=== PATIENT | male | born 1945 ===

== ENCOUNTER 2017-03-19 08:52 | Inpatient (IN) ==
[2017-03-19] MEDS ORDERED: GLUCAGON 1 MG VIAL IM PRN ×2 (09:18)
[2017-03-19] MEDS ORDERED: DEXTROSE 50% 25 GM/50 ML VIAL IV PRN ×2 (09:18)
--- NOTE | 2017-03-19 09:18 | Cardiothoracic History & Phys ---
History of Present Illness Chief complaint: Chest pain History of present illness: Mr. Nixon is a 71 year old male who was admitted to [facility] for evaluation of chest pain. Patient had been in his reasonable state of health until about 10 days ago when he began having chest heaviness and pressure. This became more severe and eventually the patient went to the hospital and was transferred to [facility] for evaluation of his chest discomfort. He was admitted to [place] and underwent cardiac catheterization demonstrating moderate to severe left main coronary stenosis and severe stenosis of the circumflex marginal coronary artery. Patient is transferred for bypass surgery. Past medical history shows the patient has had prostate surgery but otherwise has been in good general health. Family history is remarkable in that the mother had premature coronary disease as did 2 brothers. Patient has no known allergies. Patient is a former smoker and does not drink alcohol. Review of systems is noncontributory. Physical examination patient is a well-developed well-nourished - [place] male with a mild degree of chest discomfort. Examination of head eyes ears nose and throat show the pupils are equal react to light and extraocular motions are intact. Examination of the neck shows no masses and there is no thyromegaly. The oropharynx is benign. Examination of chest is clear to percussion and auscultation. Examination of the heart shows no murmurs and a regular rhythm. Examination the abdomen is soft and nontender there are no masses or organomegaly. Termination extremities shows no cyanosis or edema and the neurological examination is grossly within normal limits. Assessment: Coronary artery disease including left main involvement. Plan coronary bypass surgery at the earliest available date.
[2017-03-19] MEDS ORDERED: MORPHINE 2 MG/1 ML SYRINGE IV PRN (09:26)
[2017-03-19] MEDS ORDERED: SODIUM CHLORIDE 0.9% 1,000 ML IV SCH (09:30)
[2017-03-19] MEDS ORDERED: NITROGLYCERIN 0.3 MG/HR PATCH TRANSDERM SCH (09:30)
[2017-03-19 11:12] LABS: Basophils % 0.4 % (0.0-0.8); Eosinophils % 0.2 % (0.00-10.9); Hematocrit 42.1 VOL% (42.0-52.0); Hemoglobin 14.5 GM/DL (14.0-18.0); Immature Granulocytes % 0.6 %; Immature Granulocytes Absolute 0.06 #; Lymphocytes # 1.7 10*3/uL (1.4-4.0); Lymphocytes % 17.4 % (21.2-54.2); Mean Corpuscular HGB Conc 34.4 GM/DL (32-36); Mean Corpuscular Hemoglobin 31 PG (27-34); Mean Corpuscular Volume 89.4 FL (87-102); Mean Platelet Volume 10.1 FL (9.6-12.0); Monocytes # 0.4 10*3/uL (0.11-0.8); Monocytes % 3.6 % (1.7-12.7); Neutrophils # 7.5 10*3/uL (1.4-7.4); Neutrophils % 77.8 % (38.7-73.9); Platelet Count 227 T/CUMM (130-400); Red Blood Count 4.71 MC/CUMM (3.8-5.5); White Blood Count 9.6 T/CUMM (4-12)
[2017-03-19] MEDS ORDERED: CLORAZEPATE 3.75 MG TABLET PO PRN (11:25)
[2017-03-19 11:35] LABS: Allen Test Positive
[2017-03-19 11:36] LABS: ABG HCO3 26.1 MMOL/L (20-26); ABG Oxygen Saturation 97.9 % (95-100); ABG PCO2 39.8 MM HG (35-48); ABG PH 7.428 (7.35-7.45); ABG TCO2 22.6 MMOL/L (23-27)
[2017-03-19 11:43] LABS: Alanine Aminotransferase 27 U/L (16-61); Albumin 3.4 G/DL (3.4-5.0); Alkaline Phosphatase 63 U/L (45-117); Aspartate Amino Transferase 204 U/L (0-37); Bilirubin,Total < 0.39 MG/DL (0.2-1.0); Blood Urea Nitrogen 15 MG/DL (7-18); Calcium 8.7 MG/DL (8.5-10.1); Glucose 116 MG/DL (74-106); Potassium 3.8 MMOL/L (3.5-5.1); Sodium 143 MMOL/L (136-145); Total Protein 6.1 G/DL (6.4-8.3)
[2017-03-19] MEDS ORDERED: ENOXAPARIN 40 MG/0.4 ML SYRINGE SUBCUT SCH (12:00)
[2017-03-19] MEDS: HEPARIN DRIP 25,000 UNITS/500 ML PREMIX IV SCH (12:24)
[2017-03-19] MEDS: NITROGLYCERIN DRIP 50 MG/250 ML BOTTLE IV SCH (12:27)
[2017-03-19] MEDS: HEPARIN 5,000 UNIT/1 ML VIAL IV PRN ×2 (13:33→19:40)
--- NOTE | 2017-03-19 14:06 | Hospitalist Consult Note ---
Assessment and Plan - Time spent with patient Time spent with patient: Greater than 30 minutes (1) Coronary artery disease Status: Acute Assessment and plan: 03/19/17 - Patient underwent heart catherization at [place] and was found to have: moderate to severe left main coronary stenosis and severe stenosis of the circumflex marginal coronary artery. Plan for Bypass surgery with Dr Elliott Tuesday or sooner. Current Visit: Yes (2) Chest pain Status: Acute Assessment and plan: Patient's pain is being appropriately managed at this time. He is currently on Nitroglycerin infusion @ 12cc/hr (40mcg/min). Heparin Infusion @ 13cc/hr. and 1/ 2 NS at 20cc/hr. He has Morphine PRN for pain. Will continue current orders and monitor closely in the critical care unit, continue aspirin and blood pressure management. Bypass surgery is currently anticipated for Tuesday or sooner. Current Visit: Yes (3) Hypertension Status: Acute Assessment and plan: 03/19/17 - Continue BP management with Prinzide 20-25mg daily. Continue to monitor closely. Current Visit: Yes History of Present Illness - Consult Narrative Reason for consult: Medical Management History of present illness: Mr. Nixon is a 71 year old AA male which was transferred from [facility] following heart catherization for further treatment of Moderate to severe left main coronary stenosis and severe stenosis of the circumflex marginal coronary artery with bypass surgery. Hospitalist Services were consulted for medical management. Patient has history of hypertension and Prostatectomy 10 years ago. Patient is a former smoker. Denies alcohol and drug use. Hospitalist services consulted for medical management, Discussed with Dr Elliott and Dr Sunshine, will continue to monitor patient throughout hospital stay. CC: Don Elliott MD - Home Medications and Allergies Home Medications: Home Medications Medication Instructions Recorded Confirmed Type Aspirin [Ecotrin] 81 mg PO DAILY 03/19/17 03/19/17 History Lisinopril/Hydrochlorothiazide 1 each PO DAILY 03/19/17 03/19/17 History [Lisinopril-Hctz 20-25 mg Tab] Allergies/Adverse Reactions: Allergies Allergy/AdvReac Type Severity Reaction Status Date / Time No Known Allergies Allergy Verified 03/19/17 10:48 Medical,Surgical,& Family Hx - Medical History Cardio: History of: Hypertension Genitourinary: History of: Prostate Problems - Surgical History Reproductive Surgeries: Surgical HX of;: Prostate Surgery - Social History Smoking Status: Former smoker Frequency of Alcohol Use: None Type of Drug Use: None Marital Status: Single Lives With:: Sibling (his brother lives with him) Functional capacity: independent ambulation Review of systems: ROS completed and pertinent positive and negative in the HPI. Exam - Constitutional Vitals: Period Temp Pulse Resp BP Sys/Ricci Pulse Ox Last 24 Hr 97.1 F 64 16 140/73 95 General appearance: normal weight - Head Head exam: Present: normal inspection - Eye Eye exam: Present: EOMI Pupils: Present: PHYLICIA - Neck Neck exam: Present: normal inspection - Respiratory Respiratory exam: Present: clear to auscultation bilaterally. Absent: stridor, wheezes - Cardiovascular Cardiovascular exam: Present: regular rate and rhythm (HR 58-64) - GI/Abdominal GI/Abdominal exam: Present: normal bowel sounds, soft. Absent: guarding, tenderness, rebound - Extremities Exam Extremities exam: Present: full ROM. Absent: edema - Neurological Exam Neurological exam: Present: alert, oriented X3, CN II-XII intact - Psychiatric Psychiatric exam: Present: normal affect, normal mood - Skin Skin exam: Present: normal color, warm, dry Results - Labs CBC & BMP: 03/19/17 10:58 03/19/17 10:58 Lab Results: I have reviewed the past 24 hour labs
[2017-03-19 14:30] LABS: CKMB % 12.3 %
[2017-03-19] MEDS: PANTOPRAZOLE 40 MG TABLET PO SCH (15:38)
--- NOTE | 2017-03-19 15:43 | XRay Report ---
Exam: XR chest 1V portable Date: 03/19/2017 9:25 AM Indication: Coronary artery disease Comparison: None Technical: AP Findings: External cardiac leads are present. Oxygen tubing is present. The heart is normal in size. Mediastinum is demonstrated with some mild interstitial thickening in the perihilar regions with some atelectatic change left base. No obvious effusion. No pneumothorax. Bony structures reveal no acute findings with arthritic changes of the shoulders Impression: 1. Mild interstitial thickening in the perihilar region with atelectatic change left base PROCEDURE INTERPRETED AT [facility] DEPARTMENT OF RADIOLOGY Final Report Signed by: Dr. Duke Bush
[2017-03-19] MEDS: CLORAZEPATE 3.75 MG TABLET PO SCH (17:19)
[2017-03-19 19:20] LABS: CKMB % 13.2 %
--- NOTE | 2017-03-19 21:10 | Cardiology Consult Note ---
Assessment and Plan - Time spent with patient Time spent with patient: Greater than 30 minutes (1) Acute non-ST segment elevation myocardial infarction Status: Acute Assessment and plan: I do not have any cardiac enzymes at [place] to compare to but apparently his enzymes have increased today. This may indicate a recent non-ST segment elevation microinfarction but I do not have a EKG really to look at. The patient is not having chest pain at this time. I suspect this happened last night around midnight i.e. 20-24 hours ago. The patient is clinically stable at this time and I would just treat this patient medically. This most likely would be secondary to occlusion of his obtuse marginal branch. Current Visit: Yes (2) Chest pain Status: Acute Assessment and plan: I think is secondary to closure probably of an obtuse marginal branch. I have not seen this films are much hospitalist at this time. Current Visit: Yes (3) Coronary artery disease Status: Acute Assessment and plan: Patient will left main coronary disease and apparently obtuse marginal stenosis. Apparently he has had a non-ST segment elevation microinfarction based on lab work. Current Visit: Yes (4) Hypertension Status: Chronic Assessment and plan: Historically he has had this. Stable at this time. Current Visit: Yes (5) Bradycardia Status: Acute Assessment and plan: This may be related to his underlying cardiac disease. I do not have anything to compare to his father's rights. Certainly occasionally IV nitroglycerin will cause bradycardia. Think at this time we will monitor him without start a beta-gene because of this. We will reevaluate tomorrow if possible start low -dose beta-gene. I certainly would prefer to start this during the daytime rather than at night. Current Visit: Yes History of Present Illness - Data of Consult Patient: new to practice Consult date: 03/19/17 Requesting Physician: Don Elliott - Consult Narrative Reason for consult: MCI, CAD History of present illness: Mr. Nixon is a 71 year old male who is seen in the ICU and is a fair historian. Patient was transferred here from [facility] today. He is in the ICU is stated above. The patient apparently was at [place] and underwent catheterization yesterday after experiencing chest discomfort that has been ongoing off and on for the last 7-14 days. He describes as a pressure discomfort heaviness. He may feel short of breath with it. Since it progressed he was seen in his local hospital and transferred to [facility] where he was evaluated. He underwent catheterization as noted yesterday. Chart indicates she had a moderate to severe left main stenosis with severe stenosis of circumflex artery marginal branch. We do not have the Films to evaluate her review. Patient apparently last night around midnight plus or minus developed significant severe chest pain that was prolonged. He had pain off and on during the day that seem to decrease crescendo overall low. At present though he is not having any significant discomfort and very minimal at worst. Since transfer he has had lab work with CBC being unremarkable. Arterial blood gases are stable. Patient's chemistries are unremarkable. His renal function is unremarkable as is electrolytes. His AST is elevated at 204. Was noted today at 1159 his troponin was 25 with a CPK of 1974. A repeat set of cardiac enzymes at 1959 with a troponin of 131 and a CPK of 2532. I do not have an ECG to look at. As are noted I do not have the CAT scans to look at as well. The patient on telemetry has been stable with sinus bradycardia for most part his heart rate in the high 50s low 60s. Blood pressures been stable. He is on IV heparin as well as IV nitroglycerin. He has a history of hypertension as well as possible dyslipidemia. He denies any prior cardiac history. CC: Don Elliott MD - Home Medications and Allergies Home Medications: Home Medications Medication Instructions Recorded Confirmed Type Aspirin [Ecotrin] 81 mg PO DAILY 03/19/17 03/19/17 History Lisinopril/Hydrochlorothiazide 1 each PO DAILY 03/19/17 03/19/17 History [Lisinopril-Hctz 20-25 mg Tab] Allergies/Adverse Reactions: Allergies Allergy/AdvReac Type Severity Reaction Status Date / Time No Known Allergies Allergy Verified 03/19/17 10:48 Review of systems: Preadmission Constitutional: Denies anorexia, chills, fatigue, fever, frequent falls, night sweats, weight gain, weight loss Eyes: Denies visual changes or loss of vision Ears: Denies decreased hearing, vertigo Nose, mouth and throat: Denies dysphagia, epistaxis, headaches, neck pain, tongue swelling, Neck: Denies thyromegaly or masses. No stiffness. Cardiovascular: as per HPI Respiratory: Denies cough, dyspnea, hemoptysis, dyspnea on exertion, wheezing Gastrointestinal: Denies abdominal pain, constipation, dyspepsia, dysphagia, hematemesis, hematochezia, melena, nausea, vomiting Genitourinary: Denies dysuria, hematuria, nocturia, past history of prostatectomy for prostate cancer. Musculoskeletal: Denies any significant arthralgias, joint swelling, muscle weakness, myalgias Neurological: denies abnormal gait, abnormal speech, confusion, convulsions, frequent falls, headaches, memory loss, syncope Psychiatric: Denies anxiety, confusion, depression Endocrine: Denies cold intolerance, fatigue, heat intolerance Hematologic/Lymphatic: Denies easy bleeding, easy bruising Dermatologic: Denies Rash, itching, shingles Medical,Surgical,& Family Hx - Medical History Cardio: History of: CAD (This is of recent diagnosis), Hypertension Genitourinary: History of: Prostate Problems - Surgical History Reproductive Surgeries: Surgical HX of;: Prostate Surgery - Family History Family History: Reports;: Family Heart Disease, Family Hypertension - Social History Smoking Status: Former smoker Frequency of Alcohol Use: None Type of Drug Use: None Physical Examination Vital Signs Pulse Resp BP Pulse Ox 69 16 145/74 95 03/19/17 10:16 03/19/17 10:16 03/19/17 10:16 03/19/17 10:16 Exam: General appearance: normal weight, no acute distress Head exam: normal inspection, atraumatic Eye exam: Pupils are equal and reactive. EOMI. There is no trauma. Ear exam: Anatomically normal. Normal auditory acuity to conversation. Oral exam: No significant oral lesions. Neck exam: normal inspection no JVD. No carotid bruit. Trachea is in midline. Respiratory exam: clear to auscultation bilaterally anteriorly with good air movement. No rales, rhonchi or wheezes. Cardiovascular exam: regular rate and rhythm, no murmur or gallop or rub. No precordial lift. No bruits over the major arteries. Chest wall/torso: Anatomically normal. No tenderness, deformity Peripheral Pulses: 2+ throughout. GI/Abdominal exam: normal bowel sounds, soft and nontender, no abdominal bruits or pulsatile masses. Musculoskeletal/Extremities exam: normal inspection without edema or cyanosis. No deformities or trauma. Neurological exam: alert, oriented X3. There is no gross neurologic deficits. Psychiatric exam: normal affect, normal mood. Cognitive function is grossly intact. Skin exam: normal color, warm. No rashes or other skin lesions. Result/EKG - Labs CBC & BMP: 03/19/17 10:58 03/19/17 10:58 Lab Results: I have reviewed the past 24 hour labs Labs: Laboratory Results - last 24 hr 03/19/17 03/19/17 03/19/17 10:58 10:58 10:58 WBC 9.6 RBC 4.71 Hgb 14.5 Hct 42.1 MCV 89.4 MCH 31 MCHC 34.4 RDW 13.0 Plt Count 227 MPV 10.1 Neut % (Auto) 77.8 H Lymph % (Auto) 17.4 L [place] % (Auto) 3.6 Eos % (Auto) 0.2 Baso % (Auto) 0.4 Neut # (Auto) 7.5 H Lymph # (Auto) 1.7 [place] # (Auto) 0.4 Eos # (Auto) 0.0 Baso # (Auto) 0.0 Immature Gran % 0.6 Nucleated RBC % 0.0 Immature Gran # 0.06 Nucleated RBCs # 0.00 Circ Anticoag PTT ABG pH ABG pCO2 ABG pO2 ABG HCO3 ABG Total CO2 ABG O2 Saturation ABG Base Excess FiO2 Sodium 143 Potassium 3.8 Chloride 105 Carbon Dioxide 28 Anion Gap 13.8 BUN 15 Creatinine 1.10 GFR Calculation 79 BUN/Creatinine Ratio 13.00 Glucose 116 H Calculated Osmolality 286.0 Calcium 8.7 Total Bilirubin < 0.39 AST 204 H ALT 27 Alkaline Phosphatase 63 Total Creatine Kinase 1974 H CK-MB (CK-2) 242.8 H CK and CKMB Interp 12.3 Troponin I 25.000 H Total Protein 6.1 L Albumin 3.4 Globulin 2.7 Albumin/Globulin Ratio 1.2 03/19/17 03/19/17 03/19/17 10:59 11:15 18:17 WBC RBC Hgb Hct MCV MCH MCHC RDW Plt Count MPV Neut % (Auto) Lymph % (Auto) [place] % (Auto) Eos % (Auto) Baso % (Auto) Neut # (Auto) Lymph # (Auto) [place] # (Auto) Eos # (Auto) Baso # (Auto) Immature Gran % Nucleated RBC % Immature Gran # Nucleated RBCs # Circ Anticoag PTT 29.4 38.2 D ABG pH 7.428 ABG pCO2 39.8 ABG pO2 97.0 H ABG HCO3 26.1 H ABG Total CO2 22.6 L ABG O2 Saturation 97.9 ABG Base Excess 2.0 FiO2 28.00 Sodium Potassium Chloride Carbon Dioxide Anion Gap BUN Creatinine GFR Calculation BUN/Creatinine Ratio Glucose Calculated Osmolality Calcium Total Bilirubin AST ALT Alkaline Phosphatase Total Creatine Kinase CK-MB (CK-2) CK and CKMB Interp Troponin I Total Protein Albumin Globulin Albumin/Globulin Ratio 03/19/17 18:17 WBC RBC Hgb Hct MCV MCH MCHC RDW Plt Count MPV Neut % (Auto) Lymph % (Auto) [place] % (Auto) Eos % (Auto) Baso % (Auto) Neut # (Auto) Lymph # (Auto) [place] # (Auto) Eos # (Auto) Baso # (Auto) Immature Gran % Nucleated RBC % Immature Gran # Nucleated RBCs # Circ Anticoag PTT ABG pH ABG pCO2 ABG pO2 ABG HCO3 ABG Total CO2 ABG O2 Saturation ABG Base Excess FiO2 Sodium Potassium Chloride Carbon Dioxide Anion Gap BUN Creatinine GFR Calculation BUN/Creatinine Ratio Glucose Calculated Osmolality Calcium Total Bilirubin AST ALT Alkaline Phosphatase Total Creatine Kinase 2532 H D CK-MB (CK-2) 335.3 H D CK and CKMB Interp 13.2 Troponin I 131.000 H D Total Protein Albumin Globulin Albumin/Globulin Ratio - Impressions Impressions: ECG pending. Telemetry was sinus rhythm with occasional PVC.
[2017-03-19] MEDS: CHLORHEXIDINE 0.12% ORAL RINSE 60 ML BOTTLE SWISH/SPIT SCH (21:18)
[2017-03-20] MEDS: CLORAZEPATE 3.75 MG TABLET PO SCH ×4 (00:25→17:33)
[2017-03-20 00:28] LABS: CKMB % 9.4 %
[2017-03-20 01:03] LABS: Calcium 8.2 MG/DL (8.5-10.1); Magnesium 2.3 MG/DL (1.8-2.4); Osmolality,Calculated 283.1 MOS/KG (273-304); Potassium 4.1 MMOL/L (3.5-5.1)
[2017-03-20 01:24] LABS: Basophils % 0.4 % (0.0-0.8); Eosinophils # 0.1 10*3/uL (0.0-0.87); Eosinophils % 0.6 % (0.00-10.9); Hematocrit 39.9 VOL% (42.0-52.0); Hemoglobin 13.9 GM/DL (14.0-18.0); Immature Granulocytes % 0.7 %; Immature Granulocytes Absolute 0.07 #; Lymphocytes # 2.1 10*3/uL (1.4-4.0); Lymphocytes % 20.1 % (21.2-54.2); Mean Corpuscular HGB Conc 34.8 GM/DL (32-36); Mean Corpuscular Hemoglobin 31 PG (27-34); Mean Corpuscular Volume 88.7 FL (87-102); Mean Platelet Volume 10.7 FL (9.6-12.0); Monocytes # 0.5 10*3/uL (0.11-0.8); Monocytes % 4.5 % (1.7-12.7); Neutrophils # 7.8 10*3/uL (1.4-7.4); Neutrophils % 73.7 % (38.7-73.9); Platelet Count 206 T/CUMM (130-400); Red Cell Distribution Width 13.1 % (9.3-17.3); White Blood Count 10.5 T/CUMM (4-12)
[2017-03-20] MEDS: HEPARIN 5,000 UNIT/1 ML VIAL IV PRN (01:33)
[2017-03-20 02:18] LABS: Risk Ratio 4.54; VLDL CHOLESTEROL 22.4 MG/DL
[2017-03-20] MEDS: NITROGLYCERIN DRIP 50 MG/250 ML BOTTLE IV SCH (03:52)
[2017-03-20] MEDS: HEPARIN DRIP 25,000 UNITS/500 ML PREMIX IV SCH (04:21)
--- NOTE | 2017-03-20 04:50 | EKG Report ---
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
--- NOTE | 2017-03-20 05:03 | EKG Report ---
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
--- NOTE | 2017-03-20 07:19 | EKG Report ---
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
[2017-03-20] MEDS ORDERED: NITROGLYCERIN DRIP 50 MG/250 ML BOTTLE IV SCH (07:42)
[2017-03-20 07:54] LABS: CKMB % 5.1 %
[2017-03-20 07:55] LABS: Troponin I Only 44.4 NG/ML (0.00-0.045)
--- NOTE | 2017-03-20 08:11 | Cardiothoracic Progress Note ---
Cardiothoracic Subjective Interval history: Appreciate Dr. Marquez's help. Patient looks and feels much better this morning and his chest discomfort has resolved. His cardiac enzymes are trending downward fairly rapidly. Vital signs have been stable and he is breathing comfortably. We will try to wean him off intravenous nitroglycerin and heparin and switched to Lovenox and Nitrol patch. I am going to defer surgery to Tuesday because of his recent injury and I have explained this in some detail to the patient and he understands and agrees. We will keep him in intensive care at least another 24 hours. Exam (Progress Note) - Constitutional Vitals: Period Temp Pulse Resp BP Sys/Ricci Pulse Ox Last 24 Hr 97.1 F-98.8 F 55-69 14-21 91-145/48-84 92-98 Result/EKG - Labs CBC & BMP: 03/20/17 00:33 03/20/17 00:33 Labs: Laboratory Results - last 24 hr 03/19/17 03/19/17 03/19/17 10:58 10:58 10:58 WBC 9.6 RBC 4.71 Hgb 14.5 Hct 42.1 MCV 89.4 MCH 31 MCHC 34.4 RDW 13.0 Plt Count 227 MPV 10.1 Neut % (Auto) 77.8 H Lymph % (Auto) 17.4 L [place] % (Auto) 3.6 Eos % (Auto) 0.2 Baso % (Auto) 0.4 Neut # (Auto) 7.5 H Lymph # (Auto) 1.7 [place] # (Auto) 0.4 Eos # (Auto) 0.0 Baso # (Auto) 0.0 Immature Gran % 0.6 Nucleated RBC % 0.0 Immature Gran # 0.06 Nucleated RBCs # 0.00 Circ Anticoag PTT ABG pH ABG pCO2 ABG pO2 ABG HCO3 ABG Total CO2 ABG O2 Saturation ABG Base Excess FiO2 Sodium 143 Potassium 3.8 Chloride 105 Carbon Dioxide 28 Anion Gap 13.8 BUN 15 Creatinine 1.10 GFR Calculation 79 BUN/Creatinine Ratio 13.00 Glucose 116 H Calculated Osmolality 286.0 Calcium 8.7 Magnesium Total Bilirubin < 0.39 AST 204 H ALT 27 Alkaline Phosphatase 63 Total Creatine Kinase 1974 H CK-MB (CK-2) 242.8 H CK and CKMB Interp 12.3 Troponin I 25.000 H Total Protein 6.1 L Albumin 3.4 Globulin 2.7 Albumin/Globulin Ratio 1.2 Triglycerides Cholesterol LDL Cholesterol VLDL Cholesterol HDL Cholesterol Heart Disease Risk Ratio Blood Type Antibody Screen Crossmatch 03/19/17 03/19/17 03/19/17 10:59 11:15 18:17 WBC RBC Hgb Hct MCV MCH MCHC RDW Plt Count MPV Neut % (Auto) Lymph % (Auto) [place] % (Auto) Eos % (Auto) Baso % (Auto) Neut # (Auto) Lymph # (Auto) [place] # (Auto) Eos # (Auto) Baso # (Auto) Immature Gran % Nucleated RBC % Immature Gran # Nucleated RBCs # Circ Anticoag PTT 29.4 38.2 D ABG pH 7.428 ABG pCO2 39.8 ABG pO2 97.0 H ABG HCO3 26.1 H ABG Total CO2 22.6 L ABG O2 Saturation 97.9 ABG Base Excess 2.0 FiO2 28.00 Sodium Potassium Chloride Carbon Dioxide Anion Gap BUN Creatinine GFR Calculation BUN/Creatinine Ratio Glucose Calculated Osmolality Calcium Magnesium Total Bilirubin AST ALT Alkaline Phosphatase Total Creatine Kinase CK-MB (CK-2) CK and CKMB Interp Troponin I Total Protein Albumin Globulin Albumin/Globulin Ratio Triglycerides Cholesterol LDL Cholesterol VLDL Cholesterol HDL Cholesterol Heart Disease Risk Ratio Blood Type Antibody Screen Crossmatch 03/19/17 03/19/17 03/20/17 18:17 23:02 00:33 WBC RBC Hgb Hct MCV MCH MCHC RDW Plt Count MPV Neut % (Auto) Lymph % (Auto) [place] % (Auto) Eos % (Auto) Baso % (Auto) Neut # (Auto) Lymph # (Auto) [place] # (Auto) Eos # (Auto) Baso # (Auto) Immature Gran % Nucleated RBC % Immature Gran # Nucleated RBCs # Circ Anticoag PTT ABG pH ABG pCO2 ABG pO2 ABG HCO3 ABG Total CO2 ABG O2 Saturation ABG Base Excess FiO2 Sodium Potassium Chloride Carbon Dioxide Anion Gap BUN Creatinine GFR Calculation BUN/Creatinine Ratio Glucose Calculated Osmolality Calcium Magnesium Total Bilirubin AST ALT Alkaline Phosphatase Total Creatine Kinase 2532 H D 1911 H D CK-MB (CK-2) 335.3 H D 178.7 H D CK and CKMB Interp 13.2 9.4 Troponin I 131.000 H D 86.000 H D Total Protein Albumin Globulin Albumin/Globulin Ratio Triglycerides Cholesterol LDL Cholesterol VLDL Cholesterol HDL Cholesterol Heart Disease Risk Ratio Blood Type O NEGATIVE Antibody Screen Negative Crossmatch See Detail 03/20/17 03/20/17 03/20/17 00:33 00:33 00:33 WBC 10.5 RBC 4.50 Hgb 13.9 L Hct 39.9 L MCV 88.7 MCH 31 MCHC 34.8 RDW 13.1 Plt Count 206 MPV 10.7 Neut % (Auto) 73.7 Lymph % (Auto) 20.1 L [place] % (Auto) 4.5 Eos % (Auto) 0.6 Baso % (Auto) 0.4 Neut # (Auto) 7.8 H Lymph # (Auto) 2.1 [place] # (Auto) 0.5 Eos # (Auto) 0.1 Baso # (Auto) 0.0 Immature Gran % 0.7 Nucleated RBC % 0.0 Immature Gran # 0.07 Nucleated RBCs # 0.00 Circ Anticoag PTT ABG pH ABG pCO2 ABG pO2 ABG HCO3 ABG Total CO2 ABG O2 Saturation ABG Base Excess FiO2 Sodium 142 Potassium 4.1 Chloride 107 Carbon Dioxide 25 Anion Gap 14.1 BUN 13 Creatinine 1.00 GFR Calculation 89 BUN/Creatinine Ratio 13.00 Glucose 118 H Calculated Osmolality 283.1 Calcium 8.2 L Magnesium 2.3 Total Bilirubin AST ALT Alkaline Phosphatase Total Creatine Kinase CK-MB (CK-2) CK and CKMB Interp Troponin I Total Protein Albumin Globulin Albumin/Globulin Ratio Triglycerides 112 Cholesterol 159 LDL Cholesterol 105.0 VLDL Cholesterol 22.4 HDL Cholesterol 35 L Heart Disease Risk Ratio 4.54 Blood Type Antibody Screen Crossmatch 03/20/17 03/20/17 03/20/17 00:33 02:30 06:43 WBC RBC Hgb Hct MCV MCH MCHC RDW Plt Count MPV Neut % (Auto) Lymph % (Auto) [place] % (Auto) Eos % (Auto) Baso % (Auto) Neut # (Auto) Lymph # (Auto) [place] # (Auto) Eos # (Auto) Baso # (Auto) Immature Gran % Nucleated RBC % Immature Gran # Nucleated RBCs # Circ Anticoag PTT 38.7 ABG pH ABG pCO2 ABG pO2 ABG HCO3 ABG Total CO2 ABG O2 Saturation ABG Base Excess FiO2 Sodium Potassium Chloride Carbon Dioxide Anion Gap BUN Creatinine GFR Calculation BUN/Creatinine Ratio Glucose Calculated Osmolality Calcium Magnesium Total Bilirubin AST ALT Alkaline Phosphatase Total Creatine Kinase 1238 H D CK-MB (CK-2) 63.5 H D CK and CKMB Interp 5.1 Troponin I 44.400 H D Total Protein Albumin Globulin Albumin/Globulin Ratio Triglycerides Cholesterol LDL Cholesterol VLDL Cholesterol HDL Cholesterol Heart Disease Risk Ratio Blood Type O NEGATIVE Antibody Screen Crossmatch 03/20/17 06:43 WBC RBC Hgb Hct MCV MCH MCHC RDW Plt Count MPV Neut % (Auto) Lymph % (Auto) [place] % (Auto) Eos % (Auto) Baso % (Auto) Neut # (Auto) Lymph # (Auto) [place] # (Auto) Eos # (Auto) Baso # (Auto) Immature Gran % Nucleated RBC % Immature Gran # Nucleated RBCs # Circ Anticoag PTT 50.9 H D ABG pH ABG pCO2 ABG pO2 ABG HCO3 ABG Total CO2 ABG O2 Saturation ABG Base Excess FiO2 Sodium Potassium Chloride Carbon Dioxide Anion Gap BUN Creatinine GFR Calculation BUN/Creatinine Ratio Glucose Calculated Osmolality Calcium Magnesium Total Bilirubin AST ALT Alkaline Phosphatase Total Creatine Kinase CK-MB (CK-2) CK and CKMB Interp Troponin I Total Protein Albumin Globulin Albumin/Globulin Ratio Triglycerides Cholesterol LDL Cholesterol VLDL Cholesterol HDL Cholesterol Heart Disease Risk Ratio Blood Type Antibody Screen Crossmatch
--- NOTE | 2017-03-20 08:33 | Cardiology Progress Note ---
Assessment and Plan (1) Acute non-ST segment elevation myocardial infarction Status: Acute Assessment and plan: He is stable from this and is trending cardiac enzymes down. I agree with present therapy. We do not need to do anything from interventional standpoint. Current Visit: Yes (2) Chest pain Status: Acute Assessment and plan: This is resolved. This is probably secondary to her closure of the obtuse marginal branch. Current Visit: Yes (3) Coronary artery disease Status: Acute Assessment and plan: Patient coronary disease is going to need bypass surgery. This apparently is planned now for Tuesday. Apparently he probably closed off his obtuse marginal branch. Current Visit: Yes (4) Hypertension Status: Chronic Assessment and plan: Blood pressure stable at this time. Current Visit: Yes (5) Bradycardia Status: Acute Assessment and plan: This seems to be a little better today. I think placing him on low-dose beta gene would be appropriate. Will monitor his heart rates with this. Current Visit: Yes Cardiology - PN: Subj Interval history: Patient seen in the ICU and is doing well denies any chest pain or shortness of breath. His troponin is now trending down at 44.4 this morning as is his CPK now at 1238. His ECG this morning reveals no acute changes with nonspecific ST abnormalities and is unchanged from prior ECGs. I suspect his issues is that he did indeed close his obtuse marginal branch. Were trying to load up his outside films for review. I think at this time the patient has probably close his obtuse marginal is noted. He will course need CABG later. It appears that Dr. Elliott plans on doing his CABG Tuesday and continue to monitor 24 hours in the unit. The patient's IV nitroglycerin is being weaned off and started on nitro patch and taking them off IV heparin and going to Lovenox. Agree with these moves. The patient is stable for this. Exam (Progress Note) - Constitutional Vitals: Period Temp Pulse Resp BP Sys/Ricci Pulse Ox Last 24 Hr 97.1 F-98.8 F 55-69 14-21 91-145/48-84 92-98 Exam: General appearance: normal weight, no acute distress HEENT exam: normal inspection, atraumatic Neck exam: normal inspection no JVD. No carotid bruit. Trachea is in midline Respiratory/lungs exam: clear to auscultation bilaterally good air movement. Cardiovascular exam: regular rate and rhythm, no murmur or gallop or rub. No precordial lift. Chest wall exam: nontender GI/Abdominal exam: normal bowel sounds, soft, nontender, no abdominal bruits or pulsatile masses. Extremeties/musculoskeletal: normal inspection without edema or cyanosis. Neurological exam: alert, oriented X3, no focal deficits Psychiatric exam: normal affect, normal mood. Cognitive function is grossly normal. Skin exam: normal color, warm Result/EKG - Labs CBC & BMP: 03/20/17 00:33 03/20/17 00:33 Lab Results: I have reviewed the past 24 hour labs Labs: Laboratory Results - last 24 hr 03/19/17 03/19/17 03/19/17 10:58 10:58 10:58 WBC 9.6 RBC 4.71 Hgb 14.5 Hct 42.1 MCV 89.4 MCH 31 MCHC 34.4 RDW 13.0 Plt Count 227 MPV 10.1 Neut % (Auto) 77.8 H Lymph % (Auto) 17.4 L [place] % (Auto) 3.6 Eos % (Auto) 0.2 Baso % (Auto) 0.4 Neut # (Auto) 7.5 H Lymph # (Auto) 1.7 [place] # (Auto) 0.4 Eos # (Auto) 0.0 Baso # (Auto) 0.0 Immature Gran % 0.6 Nucleated RBC % 0.0 Immature Gran # 0.06 Nucleated RBCs # 0.00 Circ Anticoag PTT ABG pH ABG pCO2 ABG pO2 ABG HCO3 ABG Total CO2 ABG O2 Saturation ABG Base Excess FiO2 Sodium 143 Potassium 3.8 Chloride 105 Carbon Dioxide 28 Anion Gap 13.8 BUN 15 Creatinine 1.10 GFR Calculation 79 BUN/Creatinine Ratio 13.00 Glucose 116 H Calculated Osmolality 286.0 Calcium 8.7 Magnesium Total Bilirubin < 0.39 AST 204 H ALT 27 Alkaline Phosphatase 63 Total Creatine Kinase 1974 H CK-MB (CK-2) 242.8 H CK and CKMB Interp 12.3 Troponin I 25.000 H Total Protein 6.1 L Albumin 3.4 Globulin 2.7 Albumin/Globulin Ratio 1.2 Triglycerides Cholesterol LDL Cholesterol VLDL Cholesterol HDL Cholesterol Heart Disease Risk Ratio Blood Type Antibody Screen Crossmatch 03/19/17 03/19/17 03/19/17 10:59 11:15 18:17 WBC RBC Hgb Hct MCV MCH MCHC RDW Plt Count MPV Neut % (Auto) Lymph % (Auto) [place] % (Auto) Eos % (Auto) Baso % (Auto) Neut # (Auto) Lymph # (Auto) [place] # (Auto) Eos # (Auto) Baso # (Auto) Immature Gran % Nucleated RBC % Immature Gran # Nucleated RBCs # Circ Anticoag PTT 29.4 38.2 D ABG pH 7.428 ABG pCO2 39.8 ABG pO2 97.0 H ABG HCO3 26.1 H ABG Total CO2 22.6 L ABG O2 Saturation 97.9 ABG Base Excess 2.0 FiO2 28.00 Sodium Potassium Chloride Carbon Dioxide Anion Gap BUN Creatinine GFR Calculation BUN/Creatinine Ratio Glucose Calculated Osmolality Calcium Magnesium Total Bilirubin AST ALT Alkaline Phosphatase Total Creatine Kinase CK-MB (CK-2) CK and CKMB Interp Troponin I Total Protein Albumin Globulin Albumin/Globulin Ratio Triglycerides Cholesterol LDL Cholesterol VLDL Cholesterol HDL Cholesterol Heart Disease Risk Ratio Blood Type Antibody Screen Crossmatch 03/19/17 03/19/17 03/20/17 18:17 23:02 00:33 WBC RBC Hgb Hct MCV MCH MCHC RDW Plt Count MPV Neut % (Auto) Lymph % (Auto) [place] % (Auto) Eos % (Auto) Baso % (Auto) Neut # (Auto) Lymph # (Auto) [place] # (Auto) Eos # (Auto) Baso # (Auto) Immature Gran % Nucleated RBC % Immature Gran # Nucleated RBCs # Circ Anticoag PTT ABG pH ABG pCO2 ABG pO2 ABG HCO3 ABG Total CO2 ABG O2 Saturation ABG Base Excess FiO2 Sodium Potassium Chloride Carbon Dioxide Anion Gap BUN Creatinine GFR Calculation BUN/Creatinine Ratio Glucose Calculated Osmolality Calcium Magnesium Total Bilirubin AST ALT Alkaline Phosphatase Total Creatine Kinase 2532 H D 1911 H D CK-MB (CK-2) 335.3 H D 178.7 H D CK and CKMB Interp 13.2 9.4 Troponin I 131.000 H D 86.000 H D Total Protein Albumin Globulin Albumin/Globulin Ratio Triglycerides Cholesterol LDL Cholesterol VLDL Cholesterol HDL Cholesterol Heart Disease Risk Ratio Blood Type O NEGATIVE Antibody Screen Negative Crossmatch See Detail 03/20/17 03/20/17 03/20/17 00:33 00:33 00:33 WBC 10.5 RBC 4.50 Hgb 13.9 L Hct 39.9 L MCV 88.7 MCH 31 MCHC 34.8 RDW 13.1 Plt Count 206 MPV 10.7 Neut % (Auto) 73.7 Lymph % (Auto) 20.1 L [place] % (Auto) 4.5 Eos % (Auto) 0.6 Baso % (Auto) 0.4 Neut # (Auto) 7.8 H Lymph # (Auto) 2.1 [place] # (Auto) 0.5 Eos # (Auto) 0.1 Baso # (Auto) 0.0 Immature Gran % 0.7 Nucleated RBC % 0.0 Immature Gran # 0.07 Nucleated RBCs # 0.00 Circ Anticoag PTT ABG pH ABG pCO2 ABG pO2 ABG HCO3 ABG Total CO2 ABG O2 Saturation ABG Base Excess FiO2 Sodium 142 Potassium 4.1 Chloride 107 Carbon Dioxide 25 Anion Gap 14.1 BUN 13 Creatinine 1.00 GFR Calculation 89 BUN/Creatinine Ratio 13.00 Glucose 118 H Calculated Osmolality 283.1 Calcium 8.2 L Magnesium 2.3 Total Bilirubin AST ALT Alkaline Phosphatase Total Creatine Kinase CK-MB (CK-2) CK and CKMB Interp Troponin I Total Protein Albumin Globulin Albumin/Globulin Ratio Triglycerides 112 Cholesterol 159 LDL Cholesterol 105.0 VLDL Cholesterol 22.4 HDL Cholesterol 35 L Heart Disease Risk Ratio 4.54 Blood Type Antibody Screen Crossmatch 03/20/17 03/20/17 03/20/17 00:33 02:30 06:43 WBC RBC Hgb Hct MCV MCH MCHC RDW Plt Count MPV Neut % (Auto) Lymph % (Auto) [place] % (Auto) Eos % (Auto) Baso % (Auto) Neut # (Auto) Lymph # (Auto) [place] # (Auto) Eos # (Auto) Baso # (Auto) Immature Gran % Nucleated RBC % Immature Gran # Nucleated RBCs # Circ Anticoag PTT 38.7 ABG pH ABG pCO2 ABG pO2 ABG HCO3 ABG Total CO2 ABG O2 Saturation ABG Base Excess FiO2 Sodium Potassium Chloride Carbon Dioxide Anion Gap BUN Creatinine GFR Calculation BUN/Creatinine Ratio Glucose Calculated Osmolality Calcium Magnesium Total Bilirubin AST ALT Alkaline Phosphatase Total Creatine Kinase 1238 H D CK-MB (CK-2) 63.5 H D CK and CKMB Interp 5.1 Troponin I 44.400 H D Total Protein Albumin Globulin Albumin/Globulin Ratio Triglycerides Cholesterol LDL Cholesterol VLDL Cholesterol HDL Cholesterol Heart Disease Risk Ratio Blood Type O NEGATIVE Antibody Screen Crossmatch 03/20/17 06:43 WBC RBC Hgb Hct MCV MCH MCHC RDW Plt Count MPV Neut % (Auto) Lymph % (Auto) [place] % (Auto) Eos % (Auto) Baso % (Auto) Neut # (Auto) Lymph # (Auto) [place] # (Auto) Eos # (Auto) Baso # (Auto) Immature Gran % Nucleated RBC % Immature Gran # Nucleated RBCs # Circ Anticoag PTT 50.9 H D ABG pH ABG pCO2 ABG pO2 ABG HCO3 ABG Total CO2 ABG O2 Saturation ABG Base Excess FiO2 Sodium Potassium Chloride Carbon Dioxide Anion Gap BUN Creatinine GFR Calculation BUN/Creatinine Ratio Glucose Calculated Osmolality Calcium Magnesium Total Bilirubin AST ALT Alkaline Phosphatase Total Creatine Kinase CK-MB (CK-2) CK and CKMB Interp Troponin I Total Protein Albumin Globulin Albumin/Globulin Ratio Triglycerides Cholesterol LDL Cholesterol VLDL Cholesterol HDL Cholesterol Heart Disease Risk Ratio Blood Type Antibody Screen Crossmatch - Impressions Impressions: ECG with sinus rhythm with nonspecific T-wave abnormalities but no acute changes.
[2017-03-20] MEDS: ENOXAPARIN 40 MG/0.4 ML SYRINGE SUBCUT SCH ×2 (08:51→21:30)
[2017-03-20] MEDS: ASPIRIN EC 325 MG TABLET PO SCH (08:52)
[2017-03-20] MEDS: PANTOPRAZOLE 40 MG TABLET PO SCH (08:52)
[2017-03-20] MEDS: SIMVASTATIN 20 MG TABLET PO SCH (08:52)
[2017-03-20] MEDS: CHLORHEXIDINE 0.12% ORAL RINSE 60 ML BOTTLE SWISH/SPIT SCH ×2 (08:54→21:30)
[2017-03-20] MEDS: CARVEDILOL 3.125 MG TABLET PO SCH ×2 (08:54→17:33)
[2017-03-20] MEDS ORDERED: NITROGLYCERIN 0.1 MG/HR PATCH TRANSDERM SCH (09:00)
[2017-03-20] MEDS ORDERED: LISINOPRIL/HCTZ 20-25 MG TABLET PO SCH (09:00)
[2017-03-20] MEDS ORDERED: CEFUROXIME INJ 1,500 MG in SODIUM CHLORIDE 0.9% 100 ML IV ONE (09:18)
--- NOTE | 2017-03-20 09:22 | Event Note ---
Was able to finally bring out the patient's catheterization films and these were reviewed. He certainly has a very complex circumflex artery lesion. This certainly may have been the culprit of his infarction. His left main disease is noted.
[2017-03-20] MEDS: NITROGLYCERIN 0.2 MG/HR PATCH TRANSDERM SCH (10:59)
[2017-03-20 11:58] LABS: CKMB % 3.8 %; Troponin I Only 30.7 NG/ML (0.00-0.045)
--- NOTE | 2017-03-20 12:27 | Hospitalist Progress Note ---
Assessment and Plan (1) Coronary artery disease Status: Acute Assessment and plan: The patient has acute coronary artery disease with myocardial infarction. Dr. Elliott plans coronary artery bypass grafting for later this week. No new illnesses were identified today. Current Visit: Yes (2) Hypertension Status: Chronic Current Visit: Yes Hospitalist: Subjective Interval history: Mr. Nixon had chest pain yesterday and evidence of infarction. Dr. Elliott has delayed surgery until Tuesday. The patient's troponin is trending down now and chest pain has resolved. The patient does not complain of shortness of breath at this time. Exam - Constitutional Vitals: Period Temp Pulse Resp BP Sys/Ricci Pulse Ox Last 24 Hr 97.8 F-98.8 F 55-69 14-21 91-138/48-77 91-98 General appearance: no acute distress - ENT ENT exam: Present: normal exam - Respiratory Respiratory exam: Present: clear to auscultation bilaterally - Cardiovascular Cardiovascular exam: Present: regular rate and rhythm Results - Labs CBC & BMP: 03/20/17 00:33 03/20/17 00:33 Lab Results: I have reviewed the past 24 hour labs
[2017-03-20] MEDS ORDERED: CHLORHEXIDINE 4% SOLN 118 ML BOTTLE TOP SCH (15:00)
[2017-03-21] MEDS: CLORAZEPATE 3.75 MG TABLET PO SCH ×2 (00:52→06:49)
--- NOTE | 2017-03-21 06:21 | Cardiothoracic Progress Note ---
Cardiothoracic Subjective Interval history: Patient looks and feels much better today. No further chest pain. Vital signs have been stable and he is breathing comfortably. I think we can transfer him to telemetry for continued monitoring but begin to get him out of bed some in preparation for surgery on Tuesday. We will get an echo cardiogram today to evaluate left ventricular function. Exam (Progress Note) - Constitutional Vitals: Period Temp Pulse Resp BP Sys/Ricci Pulse Ox Last 24 Hr 97.8 F-99.3 F 58-71 12-26 95-143/48-76 91-100 Result/EKG - Labs CBC & BMP: 03/20/17 00:33 03/20/17 00:33 Labs: Laboratory Results - last 24 hr 03/20/17 03/20/17 03/20/17 00:33 06:43 06:43 Circ Anticoag PTT 50.9 H D Total Creatine Kinase 1238 H D CK-MB (CK-2) 63.5 H D CK and CKMB Interp 5.1 Troponin I 44.400 H D Antibody Screen Negative Crossmatch See Detail 03/20/17 10:48 Circ Anticoag PTT Total Creatine Kinase 1084 H CK-MB (CK-2) 41.2 H D CK and CKMB Interp 3.8 Troponin I 30.700 H D Antibody Screen Crossmatch
[2017-03-21] MEDS ORDERED: POTASSIUM CHLORIDE 20 MEQ TABLET PO PRN (07:30)
[2017-03-21] MEDS ORDERED: ONDANSETRON 4 MG/2 ML VIAL IV PRN (07:30)
[2017-03-21] MEDS ORDERED: MAGNESIUM SULF RIDER 4 GM in PREMIX 1 EACH IV PRN (07:30)
[2017-03-21] MEDS ORDERED: ALUMINUM/MAGNES/SIMETH MAX STR 30 ML UDCUP PO PRN (07:30)
[2017-03-21] MEDS ORDERED: MAGNESIUM HYDROXIDE SUSP 30 ML UDCUP PO PRN (07:30)
[2017-03-21] MEDS ORDERED: GLUCAGON 1 MG VIAL IM PRN ×2 (07:30)
[2017-03-21] MEDS ORDERED: oxyCODONE/ACETAMINOPHEN 5-325 MG TABLET PO PRN (07:30)
[2017-03-21] MEDS ORDERED: ZALEPLON 5 MG CAPSULE PO PRN (07:30)
[2017-03-21] MEDS ORDERED: ACETAMINOPHEN 325 MG TABLET PO PRN (07:30)
[2017-03-21] MEDS ORDERED: SODIUM CHLOR 0.45% KCL 20 MEQ 20 MEQ/1,000 ML BAG IV SCH (07:30)
[2017-03-21] MEDS ORDERED: MAGNESIUM SULF RIDER 2 GM in PREMIX 1 EACH IV PRN (07:30)
[2017-03-21] MEDS ORDERED: MORPHINE 2 MG/1 ML SYRINGE IV PRN (07:30)
[2017-03-21] MEDS ORDERED: KETOROLAC 30 MG/1 ML VIAL IV PRN (07:30)
[2017-03-21] MEDS ORDERED: DEXTROSE 50% 25 GM/50 ML VIAL IV PRN ×2 (07:30)
[2017-03-21] MEDS: CARVEDILOL 3.125 MG TABLET PO SCH ×2 (07:44→16:26)
[2017-03-21] MEDS ORDERED: ASPIRIN EC 325 MG TABLET PO SCH (09:00)
[2017-03-21] MEDS: ASPIRIN EC 325 MG TABLET PO SCH (09:37)
[2017-03-21] MEDS: SIMVASTATIN 20 MG TABLET PO SCH (09:37)
[2017-03-21] MEDS: PANTOPRAZOLE 40 MG TABLET PO SCH (09:38)
[2017-03-21] MEDS: NITROGLYCERIN 0.2 MG/HR PATCH TRANSDERM SCH (09:38)
[2017-03-21] MEDS: DOCUSATE SODIUM 100 MG CAPSULE PO SCH (09:38)
[2017-03-21] MEDS: ENOXAPARIN 40 MG/0.4 ML SYRINGE SUBCUT SCH ×2 (09:38→20:11)
[2017-03-21] MEDS: FERROUS SULFATE 325 MG TABLET PO SCH (09:39)
[2017-03-21] MEDS: LISINOPRIL/HCTZ 20-25 MG TABLET PO SCH (09:39)
[2017-03-21] MEDS: CHLORHEXIDINE 0.12% ORAL RINSE 60 ML BOTTLE SWISH/SPIT SCH ×2 (09:39→23:37)
[2017-03-21] MEDS: ASPIRIN EC 81 MG TABLET PO SCH (09:41)
--- NOTE | 2017-03-21 10:35 | Cardiology Progress Note ---
Assessment and Plan - Time spent with patient Time spent with patient: Greater than 30 minutes (1) Dyslipidemia Status: Chronic Assessment and plan: SEE PLAN OF CARE LISTED BELOW Current Visit: Yes (2) Acute non-ST segment elevation myocardial infarction Status: Acute Assessment and plan: SEE PLAN OF CARE LISTED BELOW Current Visit: Yes (3) Coronary artery disease Status: Chronic Assessment and plan: SEE PLAN OF CARE LISTED BELOW Current Visit: Yes Qualifiers: Coronary Disease-Associated Artery/Lesion type: [place] artery [place] vs. 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 Elliott from [facility] March 19, 2017 after moderate to severe left main coronary stenosis and severe stenosis of the circumflex marginal coronary artery. (Heart catheterization report has been requested). Currently scheduled for CABG Thursday, March 23, 2017. MARCH 21, 2017: Patient was moved out of the ICU today to a telemetry bed. Denies chest pain, heaviness or tightness. Vital signs are stable, labs are stable. Troponin decreased to 30.7 this morning. Currently on Aspirin, beta- blockade, NIDIA inhibitor, Nitroglycerin and lipid-lowering agent (LDL 105). I have requested records from [facility] to include heart catheterization and echocardiogram. If echo has not been obtained, will consider echo prior to surgery. Will further discuss with Dr. Rivera and await additional recommendations. ASSESSMENT/PLAN: 1. CAD - CABG Thursday, March 23, 2017. On appropriate medications at this time 2. HYPERTENSION - on beta blockade, NIDIA inhibitor. Will adjust medications accordingly during the hospital stay. 3. DYSLIPIDEMIA - LDL 105. Continue Simvastatin. 4. NSTEMI - patient's troponin is decreasing, now 30.7. Awaiting records from [place]. 5. RIGHT CAROTID BRUIT - carotid US this morning. Exam (Progress Note) - Constitutional Vitals: Period Temp Pulse Resp BP Sys/Ricci Pulse Ox Last 24 Hr 97.8 F-99.3 F 59-71 12-26 96-143/48-76 91-100 Exam: General: [Appears well with no apparent distress.] [Pleasant and cooperative. ] [Appears comfortable.] HEENT: [Bilateral arcus, normocephalic, atraumatic. Mucous membranes moist. No jaundice noted. Conjunctiva moist and clear, sclerae anicteric] Neck: No JVD/HJR, no thyromegaly or lymphadenopathy noted. Soft right carotid bruit. Cardiac: [Regular rate and rhythm.] [No obvious murmu,r rub or gallop.] Lungs: [Clear to auscultation without accessory muscle use to assist the respiratory pattern.] Not requiring oxygen Abdomen: Soft, bowel sounds normoactive. Nontender and nondistended. No abdominal bruit or thrill noted. No masses noted. Musculoskeletal: No fluid collection. Decreased range of motion is noted. Extremities: No clubbing, cyanosis noted. [ No edema noted.] Upper extremity pulses 2+. Lower extremity pulses 2+. Capillary refill less than 3 seconds. Skin: No unusual lesions or rashes. No skin breakdown appreciated. Neuro: Awake, alert and oriented 3. Moves all extremities well without hemiparesis or paralysis. No essential tremor is appreciated. Result/EKG - Labs CBC & BMP: 03/20/17 00:33 03/20/17 00:33 Lab Results: I have reviewed the past 24 hour labs Labs: Laboratory Results - last 24 hr 03/20/17 10:48 Total Creatine Kinase 1084 H CK-MB (CK-2) 41.2 H D CK and CKMB Interp 3.8 Troponin I 30.700 H D - Diagnostic Findings Procedure: Chest x-ray: report reviewed by me - EKG EKG results: interpreted by [place] EKG shows: sinus rhythm Specialty Discharge - Follow Up or Referrals
--- NOTE | 2017-03-21 11:24 | Ultrasound Report ---
History is right carotid bruit Grayscale, spectral Doppler, and color flow analysis performed and interpreted There is mild amount of soft and partially calcified plaque in both proximal internal carotid arteries Maximum systolic velocities are 113 on the right and 140 on the left Peak systolic ratios of 0.7 the right and 0.9 on the left There is antegrade flow in the right vertebral artery There is retrograde flow in the left vertebral artery Impression: 1. Mild amount of plaque with less than 50% diameter stenoses bilaterally by NASCET criteria 2. Retrograde flow in the left vertebral artery raising question of underlying left subclavian artery occlusion PROCEDURE INTERPRETED AT [facility] DEPARTMENT OF RADIOLOGY Final Report Signed by: Dr. Angela Wheeler
--- NOTE | 2017-03-21 14:50 | Sleep Medicine Consult ---
Assessment and Plan (1) Unspecified sleep apnea Status: Acute Assessment and plan: His symptoms and physical findings certainly would raise concern for sleep apnea , particularly with his comorbidities. We will proceed with HST evaluation tonight and follow-up results. If positive, can utilize auto titration CPAP perioperatively. Thank you for this consult. Current Visit: Yes (2) Hypertension Status: Chronic Assessment and plan: The prevalence rate for obstructive sleep apnea patients with hypertension is 35 %. That rate can be as high as 80% in patients who require 4 or more medications for blood pressure control. Current Visit: Yes (3) Coronary artery disease Status: Chronic Assessment and plan: I reviewed the [place] data from Lancet 2004 with the patient to their understanding. This study proved significant reduction in the risk of fatal and nonfatal cardiac events in patients with severe obstructive sleep apnea compliant with CPAP, in comparison with those noncompliant with CPAP for severe sleep apnea. Current Visit: Yes Qualifiers: Coronary Disease-Associated Artery/Lesion type: [place] artery [place] vs. transplanted heart: [place] heart Associated angina: with stable angina Qualified Code(s): I25.118 - Atherosclerotic heart disease of [place] coronary artery with other forms of angina pectoris History of Present Illness Chief complaint: Sleep apnea History of present illness: Mr. Nixon is a 71 year old male transferred from [facility] with chest pain after undergoing heart cath and being found to have multivessel coronary artery disease. He is scheduled for bypass surgery later this week. He does have a history of loud snoring but denies any history of ever being told that he stops breathing during his sleep. He usually feels refreshed but does have symptoms of sleepiness sometimes during the day. He will awaken 1 or 2 times a night to go to the bathroom. He has no family history of sleep apnea. He resides in the [facility]. Home Medications Medication Instructions Recorded Confirmed Type Aspirin [Ecotrin] 81 mg PO DAILY 03/19/17 03/19/17 History Lisinopril/Hydrochlorothiazide 1 each PO DAILY 03/19/17 03/19/17 History [Lisinopril-Hctz 20-25 mg Tab] Allergies Allergy/AdvReac Type Severity Reaction Status Date / Time No Known Allergies Allergy Verified 03/19/17 10:48 Review of systems: Symptoms otherwise unremarkable from a sleep standpoint. Exam (Pulmonay) H&P - Constitutional Vitals: Period Temp Pulse Resp BP Sys/Ricci Pulse Ox Last 24 Hr 97.8 F-99.4 F 61-71 12-26 96-143/48-96 91-98 Exam: He is alert and responsive in no acute distress. Pupils equal round reactive to light and accommodation. Extraocular movements intact. Oropharynx with a class III Mallampati exam. Neck is supple without adenopathy or thyromegaly. No supraclavicular adenopathy is noted. Chest with symmetrical breath sounds without focal wheeze, rhonchi, or rales. Cardiac exam reveals a regular rhythm without murmur or gallop. Abdomen soft nontender without palpable hepatosplenomegaly or mass. Extremities are without clubbing, cyanosis, or edema. Neurologically, he is grossly intact. He moves all extremities with good strength. Medical,Surgical,& Family Hx - Medical History Cardio: History of: CAD (This is of recent diagnosis), Hypertension Genitourinary: History of: Prostate Problems - Surgical History Reproductive Surgeries: Surgical HX of;: Prostate Surgery - Family History Family History: Reports;: Family Heart Disease, Family Hypertension - Social History Smoking Status: Former smoker Frequency of Alcohol Use: None Type of Drug Use: None Results - Labs CBC & BMP: 03/20/17 00:33 03/20/17 00:33 Lab Results: I have reviewed the past 24 hour labs Specialty Discharge - Follow Up or Referrals
--- NOTE | 2017-03-21 16:13 | ECHO Report ---
Shaheen Nixon Exam Date: 03/21/2017 14:22 Referring Physician: Technologist: Estela Xiong Age: 71 Ht (in): 59 Wt (lb): 201 Gender: M Exam Location: [facility] Echo Indications: NSTEMI, Chest pain, CAD, HTN, Bradycardia, Pre -op CABG BP: 98 / 53 HR: 62 Rhythm: Sinus Technical Quality: IMPRESSIONS Left ventricular ejection fraction is estimated at 55-60 %. Mild concentric left ventricular hypertrophy. Trace mitral valve regurgitation. Mild aortic valve sclerosis without stenosis. Trace tricuspid regurgitation. MEASUREMENTS (Male / Female) Normal Values 2D ECHO LV Diastolic Diameter PLAX 4.7 cm 4.2 - 5.9 / 3.9 - 5.3 cm LV Systolic Diameter PLAX 2.4 cm LV Fractional Shortening PLAX 48.2 % IVS Diastolic Thickness 1.0 cm 0.6 - 1.0 / 0.6 - 0.9 cm LVPW Diastolic Thickness 1.0 cm 0.6 - 1.0 / 0.6 - 0.9 cm RV Internal Dim ED PLAX 2.5 cm Aortic Root Diameter 2.3 cm LA Systolic Diameter LX 3.3 cm 3.0 - 4.0 / 2.7 - 3.8 cm FINDINGS Left Ventricle Normal left ventricular cavity size. Mild concentric left ventricular hypertrophy. Left ventricular ejection fraction is estimated at 55-60 %. Right Ventricle Normal right ventricular size. Right Atrium Normal right atrial size. Left Atrium Normal left atrial size. Mitral Valve Mild mitral valve sclerosis. Trace mitral valve regurgitation. Aortic Valve Mild aortic valve sclerosis without stenosis. Tricuspid Valve Morphologically normal tricuspid valve. Trace tricuspid regurgitation. Pulmonic Valve Morphologically normal pulmonic valve. Pericardium No pericardial effusion. Aorta Normal size aortic root and proximal ascending aorta. Ender Alaniz (Electronically Signed) Final Date: 21 March 2017 16:12
[2017-03-22 05:19] LABS: Basophils % 0.8 % (0.0-0.8); Eosinophils % 3.7 % (0.00-10.9); Hematocrit 36.3 VOL% (42.0-52.0); Hemoglobin 12.8 GM/DL (14.0-18.0); Immature Granulocytes % 0.4 %; Lymphocytes # 2.9 10*3/uL (1.4-4.0); Lymphocytes % 40.6 % (21.2-54.2); Mean Corpuscular HGB Conc 35.3 GM/DL (32-36); Mean Corpuscular Hemoglobin 31 PG (27-34); Mean Corpuscular Volume 88.8 FL (87-102); Mean Platelet Volume 10.8 FL (9.6-12.0); Monocytes # 0.5 10*3/uL (0.11-0.8); Monocytes % 6.4 % (1.7-12.7); Neutrophils # 3.5 10*3/uL (1.4-7.4); Neutrophils % 48.1 % (38.7-73.9); Platelet Count 219 T/CUMM (130-400); Red Blood Count 4.09 MC/CUMM (3.8-5.5); Red Cell Distribution Width 13.3 % (9.3-17.3); White Blood Count 7.2 T/CUMM (4-12)
[2017-03-22 05:20] LABS: Basophils # 0.1 10*3/uL (0.0-0.2); Eosinophils # 0.3 10*3/uL (0.0-0.87); Immature Granulocytes Absolute 0.03 #
[2017-03-22 05:50] LABS: Calcium 7.9 MG/DL (8.5-10.1); Magnesium 2.3 MG/DL (1.8-2.4); Osmolality,Calculated 283.1 MOS/KG (273-304); Potassium 3.5 MMOL/L (3.5-5.1)
[2017-03-22] MEDS ORDERED: FUROSEMIDE 40 MG/4 ML VIAL IV ONE (06:00)
--- NOTE | 2017-03-22 09:12 | Cardiothoracic Progress Note ---
Cardiothoracic Subjective Interval history: Ready for surgery in the morning. Exam (Progress Note) - Constitutional Vitals: Period Temp Pulse Resp BP Sys/Ricci Pulse Ox Last 24 Hr 97.5 F-99.4 F 59-64 18-20 90-123/43-96 92-96 Result/EKG - Labs CBC & BMP: 03/22/17 04:44 03/22/17 04:44 Labs: Laboratory Results - last 24 hr 03/22/17 03/22/17 04:44 04:44 WBC 7.2 D RBC 4.09 Hgb 12.8 L Hct 36.3 L MCV 88.8 MCH 31 MCHC 35.3 RDW 13.3 Plt Count 219 MPV 10.8 Neut % (Auto) 48.1 Lymph % (Auto) 40.6 [place] % (Auto) 6.4 Eos % (Auto) 3.7 Baso % (Auto) 0.8 Neut # (Auto) 3.5 Lymph # (Auto) 2.9 [place] # (Auto) 0.5 Eos # (Auto) 0.3 Baso # (Auto) 0.1 Immature Gran % 0.4 Nucleated RBC % 0.0 Immature Gran # 0.03 Nucleated RBCs # 0.00 Sodium 142 Potassium 3.5 Chloride 108 H Carbon Dioxide 26 Anion Gap 11.5 BUN 15 Creatinine 1.00 GFR Calculation 89 BUN/Creatinine Ratio 15.00 Glucose 100 Calculated Osmolality 283.1 Calcium 7.9 L Magnesium 2.3 Specialty Discharge - Follow Up or Referrals
[2017-03-22] MEDS: CARVEDILOL 3.125 MG TABLET PO SCH ×2 (09:16→18:02)
[2017-03-22] MEDS: SIMVASTATIN 20 MG TABLET PO SCH (09:16)
[2017-03-22] MEDS: ASPIRIN EC 81 MG TABLET PO SCH (09:16)
[2017-03-22] MEDS: LISINOPRIL/HCTZ 20-25 MG TABLET PO SCH (09:16)
[2017-03-22] MEDS: NITROGLYCERIN 0.2 MG/HR PATCH TRANSDERM SCH (09:16)
[2017-03-22] MEDS: DOCUSATE SODIUM 100 MG CAPSULE PO SCH (09:16)
[2017-03-22] MEDS: PANTOPRAZOLE 40 MG TABLET PO SCH (09:16)
[2017-03-22] MEDS: ENOXAPARIN 40 MG/0.4 ML SYRINGE SUBCUT SCH (09:17)
[2017-03-22] MEDS: FERROUS SULFATE 325 MG TABLET PO SCH (09:20)
[2017-03-22] MEDS: CHLORHEXIDINE 0.12% ORAL RINSE 60 ML BOTTLE SWISH/SPIT SCH ×2 (09:21→22:43)
[2017-03-22] MEDS ORDERED: LORazepam 1 MG TABLET PO ONE (12:07)
--- NOTE | 2017-03-22 12:58 | Sleep Medicine Progress Note ---
Assessment and Plan (1) Unspecified sleep apnea Status: Acute Assessment and plan: This patient does have mild obstructive sleep apnea and CPAP therapy will be initiated with an auto titration mode. Current Visit: Yes (2) Hypertension Status: Chronic Current Visit: Yes (3) Coronary artery disease Status: Chronic Current Visit: Yes Qualifiers: Coronary Disease-Associated Artery/Lesion type: [place] artery [place] vs. transplanted heart: [place] heart Associated angina: with stable angina Qualified Code(s): I25.118 - Atherosclerotic heart disease of [place] coronary artery with other forms of angina pectoris Sleep Medicine Subjective Interval history: Patient did undergo HST evaluation last night and was found to have mild obstructive sleep apnea, having a diagnostic AHI of 8.2 with O2 desaturation to lows of 85%. I reviewed these findings with him to his understanding with his family. We will go ahead and initiate auto CPAP therapy for him tonight. Exam (Progress Note) - Constitutional Vitals: Period Temp Pulse Resp BP Sys/Ricci Pulse Ox Last 24 Hr 97.5 F-99.4 F 59-64 18-20 90-125/43-90 92-96 Exam: He is alert and responsive in no acute distress. Pupils equal round reactive to light and accommodation. Extraocular movements intact. Oropharynx with a class III Mallampati exam. Neck supple without adenopathy. Chest with good air movement no focal wheeze or rhonchi. Cardiac exam reveals a regular rhythm without murmur or gallop. Abdomen soft nontender extremities without increased edema. Neurologically, he was grossly intact. He answered all questions appropriately and moves all extremities with good strength. Results - Labs CBC & BMP: 03/22/17 04:44 03/22/17 04:44 Lab Results: I have reviewed the past 24 hour labs Specialty Discharge - Follow Up or Referrals
--- NOTE | 2017-03-22 16:27 | Cardiology Progress Note ---
Gloria Liu April, RN, am scribing for, and in the presence of, Sanket Rivera MD 16:27. Assessment and Plan (1) Acute non-ST segment elevation myocardial infarction Status: Acute Current Visit: Yes (2) Coronary artery disease Status: Chronic Current Visit: Yes Qualifiers: Coronary Disease-Associated Artery/Lesion type: [place] artery [place] vs. transplanted heart: [place] heart Associated angina: with stable angina Qualified Code(s): I25.118 - Atherosclerotic heart disease of [place] coronary artery with other forms of angina pectoris (3) Dyslipidemia Status: Chronic Current Visit: Yes (4) Hypertension Status: Chronic Current Visit: Yes Cardiology - PN: Subj Interval history: [employer] SUMMARY: 71BM received in transfer by Dr. Elliott from [facility] March 19, 2017 after moderate to severe left main coronary stenosis and severe stenosis of the circumflex marginal coronary artery. (Heart catheterization report has been requested). Currently scheduled for CABG Tuesday, March 23, 2017. MARCH 21, 2017: Patient was moved out of the ICU today to a telemetry bed. Denies chest pain, heaviness or tightness. Vital signs are stable, labs are stable. Troponin decreased to 30.7 this morning. Currently on Aspirin, beta- blockade, NIDIA inhibitor, Nitroglycerin and lipid-lowering agent (LDL 105). I have requested records from [facility] to include heart catheterization and echocardiogram. If echo has not been obtained, will consider echo prior to surgery. Will further discuss with Dr. Rivera and await additional recommendations. March 22, 2017: Mr. Borrego is seen resting in bed with family at bedside. He is scheduled for CABG with Dr. Elliott tomorrow. He denies any chest pain shortness of breath. Vitals have been stable. nuclear monitoring technician currently shows sinus bradycardia with PVCs, heart rates in the 50s. Labs are unremarkable. Carotid Doppler done yesterday showed mild amount of plaque with less than 50% diameter stenosis bilaterally. Exam (Progress Note) - Constitutional Vitals: Period Temp Pulse Resp BP Sys/Ricci Pulse Ox Last 24 Hr 97.5 F-99.4 F 59-64 18-20 90-125/43-90 92-96 General appearance: no acute distress, over weight - Head Head exam: Absent: abrasion, hematoma - Eye Eye exam: Absent: periorbital swelling, laceration to eyelids - Neck Neck exam: Absent: tenderness - Respiratory Respiratory exam: Present: clear to auscultation bilaterally. Absent: accessory muscle use, chest wall tenderness - Cardiovascular Cardiovascular exam: Present: bradycardia, regular rate and rhythm - GI/Abdominal GI/Abdominal exam: Present: normal bowel sounds, soft. Absent: distended, tenderness - Extremities Exam Extremities exam: Absent: edema - Neurological Exam Neurological exam: Present: alert, oriented X3 - Psychiatric Psychiatric exam: Present: normal affect, normal mood - Skin Skin exam: Present: warm, dry Result/EKG - Labs CBC & BMP: 03/22/17 04:44 03/22/17 04:44 Lab Results: I have reviewed the past 24 hour labs Labs: Laboratory Results - last 24 hr 03/22/17 03/22/17 04:44 04:44 WBC 7.2 D RBC 4.09 Hgb 12.8 L Hct 36.3 L MCV 88.8 MCH 31 MCHC 35.3 RDW 13.3 Plt Count 219 MPV 10.8 Neut % (Auto) 48.1 Lymph % (Auto) 40.6 [place] % (Auto) 6.4 Eos % (Auto) 3.7 Baso % (Auto) 0.8 Neut # (Auto) 3.5 Lymph # (Auto) 2.9 [place] # (Auto) 0.5 Eos # (Auto) 0.3 Baso # (Auto) 0.1 Immature Gran % 0.4 Nucleated RBC % 0.0 Immature Gran # 0.03 Nucleated RBCs # 0.00 Sodium 142 Potassium 3.5 Chloride 108 H Carbon Dioxide 26 Anion Gap 11.5 BUN 15 Creatinine 1.00 GFR Calculation 89 BUN/Creatinine Ratio 15.00 Glucose 100 Calculated Osmolality 283.1 Calcium 7.9 L Magnesium 2.3 - EKG EKG results: interpreted by me EKG shows: bradycardia, sinus rhythm Specialty Discharge - Follow Up or Referrals INicole Randall Scott, MD, personally performed the services described in this documentation, ascribed by Alka Castro RN in my presence, and it is both accurate and complete 627 .
[2017-03-22] MEDS: CHLORHEXIDINE 4% SOLN 118 ML BOTTLE TOP SCH ×2 (18:05→22:43)
[2017-03-23] MEDS ORDERED: PAPAVERINE 60 MG/2 ML VIAL ONE (04:37)
[2017-03-23] MEDS ORDERED: VANCOMYCIN 1,000 MG VIAL ONE (04:38)
[2017-03-23] MEDS ORDERED: CEFUROXIME INJ 1,500 MG in SODIUM CHLORIDE 0.9% 100 ML IV ONE (05:00)
[2017-03-23] MEDS ORDERED: LORazepam 1 MG TABLET PO ONE (05:30)
[2017-03-23] MEDS ORDERED: PANTOPRAZOLE 40 MG TABLET PO SCH (05:30)
[2017-03-23] MEDS ORDERED: FAMOTIDINE 20 MG TABLET PO ONE (05:30)
[2017-03-23] MEDS: LISINOPRIL/HCTZ 20-25 MG TABLET PO SCH (05:42)
[2017-03-23] MEDS: CARVEDILOL 3.125 MG TABLET PO SCH (05:43)
[2017-03-23] MEDS: CHLORHEXIDINE 4% SOLN 118 ML BOTTLE TOP SCH (06:17)
[2017-03-23] MEDS ORDERED: HEPARIN/NACL 0.9% 2 UNITS/ML 500 ML IV ONE (06:24)
[2017-03-23] MEDS ORDERED: MINERAL OIL/PETROLATUM OPH OINT 3.5 GM TUBE ONE (06:24)
[2017-03-23] MEDS ORDERED: CALCIUM CHLORIDE 1,000 MG/10 ML SYRINGE IV ONE ×2 (06:24→07:22)
[2017-03-23] MEDS ORDERED: PHENYLEPHRINE DRIP 20 MG/250 ML PREMIX IV ONE ×2 (06:24→09:57)
[2017-03-23] MEDS ORDERED: ETOMIDATE 20 MG/10 ML VIAL IV ONE (06:25)
[2017-03-23] MEDS ORDERED: VECURONIUM 10 MG VIAL IV ONE ×2 (06:25→10:59)
[2017-03-23] MEDS ORDERED: AMINOCAPROIC ACID 5,000 MG/20 ML VIAL IV ONE (06:25)
[2017-03-23] MEDS ORDERED: NITROGLYCERIN DRIP 50 MG/250 ML BOTTLE IV ONE ×2 (06:25→11:15)
[2017-03-23] MEDS ORDERED: NITROPRUSSIDE 50 MG/2 ML VIAL ONE (07:21)
[2017-03-23] MEDS ORDERED: POTASSIUM CHLORIDE RIDER 100 ML IV ONE (07:22)
[2017-03-23] MEDS ORDERED: EPINEPHrine 1 MG/10 ML SYRINGE ONE (07:23)
[2017-03-23] MEDS ORDERED: ALBUMIN 5% 12.5 GM/250 ML VIAL IV ONE (07:23)
[2017-03-23] MEDS ORDERED: SODIUM BICARBONATE 50 MEQ/50 ML SYRINGE IV ONE ×2 (07:26→09:57)
[2017-03-23 07:28] LABS: ABG HCO3 26.2 MMOL/L (20-26); ABG Oxygen Saturation 99.7 % (95-100); ABG PCO2 33.6 MM HG (35-48); ABG TCO2 21.9 MMOL/L (23-27); Glucose Heart Surgery 106 MG/DL (74-106); Hematocrit Heart Surgery 38.5 PERCENT (42-52); Hemoglobin Heart Surgery 12.5 G/DL (14.0-18.0); Ionized Calcium Arterial 1.11 MMOL/L (1.21-1.46); PCO2 Patient Temp Arterial 33.6 MMHG; Patient Temperature 37 CELCIUS; Potassium Heart/CVR 3.3 MMOL/L (3.5-5.1); Sodium Heart/CVR 139 MMOL/L (135-145)
[2017-03-23 07:35] LABS: Apearance,Urine CLEAR (Clear); Bilirubin,Urine Negative (Negative); Blood, Urine Negative (Negative); Glucose,Urine (UA) Negative (Negative); Ketones,Urine Negative (Negative); Mucus,Urine Occasional /LPF (Occasional); Nitrite,Urine Negative (Negative); Protein,Urine Negative; RBC,Urine 1 /HPF (0-4); Squamous Epithelial Cell,Urine Occasional /HPF (0-10); Urine Color Yellow (Yellow); Urine Urobilinogen < 2.0 EU/DL (0.2-1.0); WBC,Urine <1 /HPF (0-6)
[2017-03-23 08:17] LABS: PCO2 Patient Temp Venous 30.3 MM HG; PH Patient Temp Venous 7.514; PO2 Patient Temp Venous 32.8 MM HG; VBG Base Excess 1.9 MEQ/L (0-4); VBG HCO3 25.8 MEQ/L (24-28); VBG Oxygen Saturation 78.3 %; VBG PH 7.469; VBG PO2 40.4 MMHG (17-40)
[2017-03-23] MEDS: ASPIRIN EC 81 MG TABLET PO SCH (08:26)
[2017-03-23] MEDS: FERROUS SULFATE 325 MG TABLET PO SCH (08:27)
[2017-03-23] MEDS: SIMVASTATIN 20 MG TABLET PO SCH (08:27)
[2017-03-23] MEDS: NITROGLYCERIN 0.2 MG/HR PATCH TRANSDERM SCH (08:27)
[2017-03-23] MEDS: CHLORHEXIDINE 0.12% ORAL RINSE 60 ML BOTTLE SWISH/SPIT SCH ×2 (08:27→21:20)
[2017-03-23] MEDS: DOCUSATE SODIUM 100 MG CAPSULE PO SCH (08:27)
--- NOTE | 2017-03-23 08:28 | Anesthesia Procedures ---
Anesthesia Procedures - Central Venous Insert Monitors Applied: pulse oximetry, EKG, BP cuff, oxygen via MSBT: pulse oximetry, EKG, BP cuff, oxygen via Procedure: after sterile technique was performed as outlined above, , ultrasound guidance was used to identify vessel, 18G introducer needle was passed into vessel under direct visualizatio, triple lumen catheter was passed over guidewire without difficulty, catheter sutured into place and the ports flushed with NS/hepflush, sterlie dressing applied including the antibiotic disc , vital signs were stable throughout procedure, no apparent complications were noted, CXR to be obtained and read Ultrasound used: identify patency vessel, visualize needle entry to vessel Vein Cannulated: right internal juglar
--- NOTE | 2017-03-23 08:29 | Anesthesia Procedures ---
Anesthesia Procedures - Arterial Line Consent obtained arterial line: written consent Time out performed arterial line: Yes Size (Gauge): 20 Technique used arterial line: guide wire technique Post-Procedure: line sutured into place, dry sterile dressing placed Patient tolerated procedure arterial line: no complications Complications art line: none Site: right, radial
[2017-03-23] MEDS ORDERED: PHENYLEPHRINE DRIP 40 MG/250 ML PREMIX IV ONE (08:34)
[2017-03-23 08:47] LABS: Hematocrit Heart Surgery 27.5 PERCENT (42-52); Hemoglobin Heart Surgery 8.8 G/DL (14.0-18.0); PCO2 Patient Temp Venous 34.2 MM HG; PH Patient Temp Venous 7.481; PO2 Patient Temp Venous 34.7 MM HG; Potassium Heart/CVR 4.3 MMOL/L (3.5-5.1); VBG Base Excess 2.3 MEQ/L (0-4); VBG HCO3 26.1 MEQ/L (24-28); VBG Oxygen Saturation 73.5 %; VBG PCO2 35.9 MMHG (41-51); VBG PH 7.466; VBG PO2 37.2 MMHG (17-40)
[2017-03-23 09:43] LABS: ABG Base Excess 1.6 MMOL/L (-2.5-2.5); ABG HCO3 25.9 MMOL/L (20-26); ABG PCO2 31.7 MM HG (35-48); ABG PH 7.495 (7.35-7.45); ABG TCO2 22.2 MMOL/L (23-27); Glucose Heart Surgery 194 MG/DL (74-106); Hematocrit Heart Surgery 29.9 PERCENT (42-52); Hemoglobin Heart Surgery 9.7 G/DL (14.0-18.0); PCO2 Patient Temp Arterial 31.7 MMHG; PH Patient Temp Arterial 7.495; Patient Temperature 37 CELCIUS; Potassium Heart/CVR 3.7 MMOL/L (3.5-5.1); Sodium Heart/CVR 135 MMOL/L (135-145)
[2017-03-23] MEDS ORDERED: THROMBIN TOPICAL (RECOMBINANT) 5,000 UNIT VIAL TOP ONE (09:55)
[2017-03-23] MEDS ORDERED: PROTAMINE SULFATE 250 MG/25 ML VIAL IV ONE (09:57)
[2017-03-23] MEDS ORDERED: FUROSEMIDE 20 MG/2 ML VIAL ONE (09:57)
[2017-03-23] MEDS ORDERED: DEXTROSE 5% KCL 20 MEQ 20 MEQ/1,000 ML BAG IV ONE (09:57)
[2017-03-23] MEDS ORDERED: ALBUMIN 25% 25 GM/100 ML VIAL IV ONE (09:57)
[2017-03-23] MEDS ORDERED: MAGNESIUM SULFATE 1 GM/2 ML VIAL ONE (09:57)
[2017-03-23] MEDS ORDERED: MANNITOL 12.5 GM/50 ML VIAL IV ONE (09:57)
[2017-03-23] MEDS ORDERED: HEPARIN 10,000 UNIT/10 ML VIAL ONE (09:57)
[2017-03-23] MEDS ORDERED: POTASSIUM CHLORIDE 20 MEQ/10 ML VIAL ONE (09:58)
[2017-03-23] MEDS ORDERED: PROTAMINE SULFATE 50 MG/5 ML VIAL IV ONE ×3 (09:58→10:38)
[2017-03-23] MEDS ORDERED: methylPREDNISolone SOD SUC 125 MG/2 ML VIAL ONE (09:58)
--- NOTE | 2017-03-23 10:41 | Operative Note ---
Date of procedure: 03/23/17 Pre-op diagnosis: Coronary artery disease Post-op diagnosis: same Procedure: Procedure: Coronary bypass grafting 2 with saphenous vein graft to the anterior descending and circumflex marginal coronary arteries. Findings: Patient is a 71-year-old man who recently underwent cardiac catheterization at [facility] for increasing substernal chest discomfort. He was found to have severe two-vessel coronary disease with left main coronary involvement. At the time of catheter was noted that his left internal mammary artery was small. Patient experienced a myocardial injury during 24 hours following catheterization with troponins reaching over 100. He did not seem to suffer any hemodynamic consequences from this but we elected to wait 5 days following his acute event before surgery. At the time of surgery left ventricular function was noted to be remarkably well preserved. Saphenous vein grafts were placed to the anterior descending coronary artery and to the circumflex marginal coronary artery. There is no clear evidence of transmural infarction seen. Patient tolerated procedure well and was returned to recovery in satisfactory condition. Procedure: Patient brought to the operating room placed in the operating table in the supine position. After satisfactory induction of general anesthesia the chest abdomen and legs were prepped and draped in sterile fashion. Greater saphenous vein was harvested from the left lower leg and prepared as an arterial graft. Incision in the leg was closed with 3-0 silk cutaneous Monocryl and skin bernadine in the skin. A standard sternotomy incision was made and the sternum was divided and the heart suspended in a pericardial cradle. Patient was prepared for cardiopulmonary bypass with systemic heparinization cannulation of the ascending aorta and right atrium. Cardiopulmonary bypass was begun and aorta was crossclamped and the heart arrested with cardioplegia solution injected into the aortic root. Heart was protected during the period of crossclamping with topical saline slush. Distal anastomoses were constructed as noted above and then the aorta was unclamped reestablishing cardiac action. Proximal anastomoses were constructed between the ascending aorta and the saphenous vein grafts. Following this the patient was weaned from cardiopulmonary bypass without difficulty and heparin effect reversed with protamine. Decannulation was carried out and the defects in the ascending aorta and right atrium closed with 3-0 Prolene. The operative field was inspected for hemostasis and this was considered adequate incision was closed with interrupted stainless steel wire and the sternum and 0 Monopril in the presternal fascia. Skin was closed with 3-0 subcuticular Monocryl. 2 chest tubes were left in the anterior mediastinum and brought out through separate stab incisions. Sterile dressings were applied the patient was returned to recovery in satisfactory condition. Anesthesia: CHEMOA Surgeon / Physician: Don Elliott Estimated blood loss: other (Unable to determine because of cardiopulmonary bypass) Condition: stable Disposition: ICU Results - Labs CBC & BMP: 03/23/17 09:39 03/22/17 04:44 Discharge Plan - Discharge Medications No Action Aspirin [Ecotrin] 81 mg PO DAILY Lisinopril/Hydrochlorothiazide [Lisinopril-Hctz 20-25 mg Tab] 1 each PO DAILY - Follow Up or Referral - Forms/Instructions Instructions: Myocardial Infarction (GEN), Coronary Artery Bypass Graft (DC), Sternal Precautions, Exhaust And Muffler Fitter (GEN)
[2017-03-23] MEDS ORDERED: INSULIN REGULAR 100 UNIT/ML IV ONE (10:44)
[2017-03-23] MEDS ORDERED: NITROPRUSSIDE 100 MG in DEXTROSE 5% 250 ML IV PRN (10:44)
[2017-03-23] MEDS ORDERED: MORPHINE 10 MG/1 ML VIAL IV PRN (10:44)
[2017-03-23] MEDS ORDERED: CALCIUM CHLORIDE 1,000 MG/10 ML SYRINGE IV PRN (10:44)
[2017-03-23] MEDS ORDERED: ACETAMINOPHEN 650 MG SUPP RECTAL PRN (10:44)
[2017-03-23] MEDS ORDERED: MAGNESIUM SULF RIDER 4 GM in PREMIX 1 EACH IV PRN (10:44)
[2017-03-23] MEDS ORDERED: ONDANSETRON 4 MG/2 ML VIAL IV PRN (10:44)
[2017-03-23] MEDS ORDERED: INSULIN REGULAR 100 UNIT/ML IV PRN (10:44)
[2017-03-23] MEDS ORDERED: MAGNESIUM SULF RIDER 2 GM in PREMIX 1 EACH IV PRN (10:44)
[2017-03-23] MEDS ORDERED: MIDAZOLAM 2 MG/2 ML VIAL IV PRN (10:44)
[2017-03-23] MEDS ORDERED: PHENYLEPHRINE DRIP 40 MG/250 ML PREMIX IV PRN (10:44)
[2017-03-23] MEDS ORDERED: MIDAZOLAM 10 MG/2 ML VIAL IV PRN (10:44)
[2017-03-23] MEDS ORDERED: MORPHINE 2 MG/1 ML SYRINGE IV PRN (10:44)
[2017-03-23] MEDS ORDERED: DEXTROSE 50% 25 GM/50 ML VIAL IV PRN ×2 (10:44)
[2017-03-23] MEDS ORDERED: VECURONIUM 10 MG VIAL IV PRN ×2 (10:44)
[2017-03-23 10:48] LABS: ABG Base Excess 2.1 MMOL/L (-2.5-2.5); ABG HCO3 26.3 MMOL/L (20-26); ABG Oxygen Saturation 99.7 % (95-100); ABG PCO2 29.5 MM HG (35-48); ABG PH 7.522 (7.35-7.45); ABG TCO2 21.4 MMOL/L (23-27); Glucose Heart Surgery 179 MG/DL (74-106); Hematocrit Heart Surgery 35.9 PERCENT (42-52); Hemoglobin Heart Surgery 11.6 G/DL (14.0-18.0); Potassium Heart/CVR 5.2 MMOL/L (3.5-5.1)
[2017-03-23 10:55] LABS: Basophils % 0.3 % (0.0-0.8); Eosinophils # 0.1 10*3/uL (0.0-0.87); Eosinophils % 1.5 % (0.00-10.9); Hematocrit 32.6 VOL% (42.0-52.0); Hemoglobin 11.7 GM/DL (14.0-18.0); Immature Granulocytes % 1.1 %; Lymphocytes # 1.5 10*3/uL (1.4-4.0); Lymphocytes % 17.4 % (21.2-54.2); Mean Corpuscular HGB Conc 35.9 GM/DL (32-36); Mean Corpuscular Hemoglobin 32 PG (27-34); Mean Corpuscular Volume 88.1 FL (87-102); Mean Platelet Volume 10.5 FL (9.6-12.0); Monocytes # 0.2 10*3/uL (0.11-0.8); Monocytes % 2.6 % (1.7-12.7); Neutrophils # 6.8 10*3/uL (1.4-7.4); Neutrophils % 77.1 % (38.7-73.9); Platelet Count 180 T/CUMM (130-400); Red Cell Distribution Width 13.1 % (9.3-17.3); White Blood Count 8.8 T/CUMM (4-12)
[2017-03-23] MEDS ORDERED: SEVOFLURANE 1 UNIT/15 MINUTE INH ONE (10:57)
[2017-03-23] MEDS ORDERED: ePHEDrine 50 MG/ML AMP ONE (10:58)
[2017-03-23] MEDS ORDERED: MIDAZOLAM 10 MG/2 ML VIAL ONE (10:58)
[2017-03-23] MEDS ORDERED: SUFentanil 50 MCG/ML AMP ONE ×2 (10:58→11:07)
[2017-03-23] MEDS ORDERED: SODIUM CHLORIDE 0.9% 1,000 ML IV ONE (10:59)
[2017-03-23] MEDS ORDERED: LACTATED RINGERS 1,000 ML IV ONE (10:59)
[2017-03-23] MEDS ORDERED: SODIUM CHLORIDE 0.9% 250 ML IV ONE (10:59)
[2017-03-23] MEDS ORDERED: SUFentanil 250 MCG/5 ML AMP ONE (10:59)
[2017-03-23] MEDS ORDERED: SODIUM CHLORIDE 0.45% 1,000 ML IV SCH ×2 (11:00)
[2017-03-23] MEDS ORDERED: NITROGLYCERIN DRIP 50 MG/250 ML BOTTLE IV SCH (11:00)
[2017-03-23] MEDS: LACTATED RINGERS 250 ML IV PRN ×12 (11:00→15:45)
[2017-03-23] MEDS ORDERED: INSULIN REGULAR DRIP 100 ML IV SCH (11:00)
[2017-03-23 11:13] LABS: INR 1.2; PT Patient Result 12.3 SECS; Partial Thromboplastin Time 30.9 SECS (0-40)
[2017-03-23 11:18] LABS: Band Neutrophils 2 % (0-10); Hypochromasia 1+; Lymphocytes 16 % (20-55); Microcytosis Slight; Segmented Neutrophils 80 % (50-85); Total Cells Counted 100
[2017-03-23 11:19] LABS: Platelet Estimate Adequate
[2017-03-23 11:32] LABS: Bilirubin,Total 0.9 MG/DL (0.2-1.0); Calcium 8.8 MG/DL (8.5-10.1); Magnesium 2.3 MG/DL (1.8-2.4); Osmolality,Calculated 281.5 MOS/KG (273-304); Potassium 5.5 MMOL/L (3.5-5.1); Total Protein 5.6 G/DL (6.4-8.3)
[2017-03-23 11:37] LABS: Troponin I Only 11.2 NG/ML (0.00-0.045)
[2017-03-23] MEDS: ALBUMIN 5% 12.5 GM in PREMIX 1 EACH IV PRN ×3 (11:45→15:10)
--- NOTE | 2017-03-23 12:03 | XRay Report ---
History is ET tube placement central line placement Comparison 03/19/2017 There is been interval median sternotomy. ET tube tip is at T4. Parnell-Skyler catheter tip is in the right lower lobe pulmonary arterial tree. Additional right central line the tip not well seen likely overlying the upper portion the right atrium No pneumothorax seen Minimal discoid atelectasis the left lung base present. Heart is normal in size Right lung is clear Anterior chest tubes are present. Impression: 1. Interval median sternotomy and placement of supportive devices detailed above 2. mild discoid atelectasis in the left lung base. PROCEDURE INTERPRETED AT [facility] DEPARTMENT OF RADIOLOGY Final Report Signed by: Dr. Angela Wheeler
[2017-03-23] MEDS: KETOROLAC 30 MG/1 ML VIAL IV SCH ×3 (12:30→22:42)
[2017-03-23 12:32] LABS: ABG Base Excess 0.6 MMOL/L (-2.5-2.5); ABG Oxygen Saturation 98.8 % (95-100); ABG PCO2 30.8 MM HG (35-48); ABG PH 7.484 (7.35-7.45); ABG TCO2 20.3 MMOL/L (23-27); Glucose Heart Surgery 180 MG/DL (74-106); Hematocrit Heart Surgery 38.1 PERCENT (42-52); Hemoglobin Heart Surgery 12.4 G/DL (14.0-18.0); Potassium Heart/CVR 3.3 MMOL/L (3.5-5.1)
[2017-03-23] MEDS: POTASSIUM CHLORIDE RIDER 20 MEQ in PREMIX 1 EACH IV PRN ×4 (12:36→18:23)
[2017-03-23 15:05] LABS: ABG Base Excess 1.6 MMOL/L (-2.5-2.5); ABG HCO3 25.8 MMOL/L (20-26); ABG Oxygen Saturation 98.5 % (95-100); ABG TCO2 21.7 MMOL/L (23-27); Glucose Heart Surgery 136 MG/DL (74-106); Hematocrit Heart Surgery 32.8 PERCENT (42-52); Hemoglobin Heart Surgery 10.6 G/DL (14.0-18.0); Potassium Heart/CVR 3.6 MMOL/L (3.5-5.1)
--- NOTE | 2017-03-23 15:24 | Cardiology Progress Note ---
I, Alka Castro RN, am scribing for, and in the presence of, Sanket Rivera MD 15:24. Assessment and Plan (1) Acute non-ST segment elevation myocardial infarction Status: Acute Assessment and plan: Initial assessment and plan March 22, 2017: 1. I have examined and interviewed Mr. Nixon. He has multivessel coronary artery disease status post non-STEMI scheduled for CABG in the morning by Dr. Elliott. 2. He is asymptomatic and hemodynamically stable on appropriate medications. 3. No new recommendations Assessment and plan March 23, 2017: 1. Postop day 0 from two-vessel CABG doing well 2. Hemodynamic is stable with reduced cardiac index as expected about 1.6 L/min /m 3. Currently on nitroglycerin infusion as well as insulin infusion with as needed albumin 4. Maintain normal sinus rhythm 5. Consider low-dose beta-gene when able to tolerate Current Visit: Yes (2) Coronary artery disease Status: Chronic Current Visit: Yes Qualifiers: Coronary Disease-Associated Artery/Lesion type: [place] artery [place] vs. 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 Elliott from [facility] March 19, 2017 after moderate to severe left main coronary stenosis and severe stenosis of the circumflex marginal coronary artery. (Heart catheterization report has been requested). Currently scheduled for CABG Thursday, March 23, 2017. MARCH 21, 2017: Patient was moved out of the ICU today to a telemetry bed. Denies chest pain, heaviness or tightness. Vital signs are stable, labs are stable. Troponin decreased to 30.7 this morning. Currently on Aspirin, beta- blockade, NIDIA inhibitor, Nitroglycerin and lipid-lowering agent (LDL 105). I have requested records from [facility] to include heart catheterization and echocardiogram. If echo has not been obtained, will consider echo prior to surgery. Will further discuss with Dr. Rivera and await additional recommendations. March 22, 2017: Mr. Nixon is seen resting in bed with family at bedside. He is scheduled for CABG with Dr. Elliott tomorrow. He denies any chest pain shortness of breath. Vitals have been stable. 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 Labs are unremarkable. Carotid Doppler done yesterday showed mild amount of plaque with less than 50% diameter stenosis bilaterally. March 23, 2017: Mr. Nixon is seen status post coronary bypass grafting 2 with saphenous vein graft to the anterior descending and circumflex marginal coronary arteries. He is intubated. Chest tubes noted. Currently in sinus rhythm with heart rates in the 70s. Blood pressure 151/74. Exam (Progress Note) - Constitutional Vitals: Period Temp Pulse Resp BP Sys/Ricci Pulse Ox Last 24 Hr 98.2 F-99.4 F 50-66 16-20 110-125/63-71 95-97 General appearance: other (Intubated and sedated) - Eye Eye exam: Absent: periorbital swelling, laceration to eyelids - Respiratory Respiratory exam: Present: other (Intubated on mechanical ventilation) - Cardiovascular Cardiovascular exam: Present: regular rate and rhythm - Extremities Exam Extremities exam: Absent: edema - Neurological Exam Neurological exam: Present: other (Sedated) - Psychiatric Psychiatric exam: Present: other (Sedated) - Skin Skin exam: Present: warm, dry Result/EKG - Labs CBC & BMP: 03/23/17 10:45 03/23/17 10:45 Lab Results: I have reviewed the past 24 hour labs Labs: Laboratory Results - last 24 hr 03/22/17 03/23/17 03/23/17 04:42 05:06 07:00 WBC RBC Hgb Hct MCV MCH MCHC RDW Plt Count MPV Neut % (Auto) Lymph % (Auto) [place] % (Auto) Eos % (Auto) Baso % (Auto) Neut # (Auto) Lymph # (Auto) [place] # (Auto) Eos # (Auto) Baso # (Auto) Total Counted Immature Gran % Nucleated RBC % Immature Gran # Segmented Neutrophils Band Neutrophils Lymphocytes Monocytes Nucleated RBCs # Platelet Estimate Hypochromasia Microcytosis INR PT Patient/Control Mix Circ Anticoag PTT Patient Temperature ABG pH ABG pH at Pt Temp ABG pCO2 ABG pCO2 at Pt Temp ABG pO2 ABG pO2 at Pt Temp ABG HCO3 ABG Total CO2 ABG O2 Saturation ABG Base Excess ABG Sodium VBG pH VBG pCO2 VBG pO2 VBG HCO3 VBG Total CO2 VBG O2 Saturation VBG Base Excess Hemoglobin Hematocrit Potassium Glucose Ionized Calcium FiO2 POC Glucose 85 Venous Ioniz Calcium Urine Color Yellow Urine Appearance Clear Urine pH 7.0 Ur Specific [place] 1.010 Urine Protein Negative Urine Glucose (UA) Negative Urine Ketones Negative Urine Blood Negative Urine Nitrate Negative Urine Bilirubin Negative Urine Urobilinogen < 2.0 H Urine Leukocytes Negative Urine RBC 1 Urine WBC <1 Ur Squamous Epith Cells Occasional Urine Mucus Occasional Ur Culture Indicated? Not indicated Blood Type O NEGATIVE Antibody Screen Negative Crossmatch See Detail 03/23/17 03/23/17 03/23/17 07:14 07:29 08:15 WBC RBC Hgb Hct MCV MCH MCHC RDW Plt Count 161 D MPV Neut % (Auto) Lymph % (Auto) Rank[place] % (Auto) Eos % (Auto) Baso % (Auto) Neut # (Auto) Lymph # (Auto) Rankin # (Auto) Eos # (Auto) Baso # (Auto) Total Counted Immature Gran % Nucleated RBC % Immature Gran # Segmented Neutrophils Band Neutrophils Lymphocytes Monocytes Nucleated RBCs # Platelet Estimate Hypochromasia Microcytosis INR PT Patient/Control Mix Circ Anticoag PTT Patient Temperature 37 34 ABG pH 7.480 H ABG pH at Pt Temp 7.480 7.514 ABG pCO2 33.6 L ABG pCO2 at Pt Temp 33.6 30.3 ABG pO2 428.0 H ABG pO2 at Pt Temp 428.0 32.8 ABG HCO3 26.2 H ABG Total CO2 21.9 L ABG O2 Saturation 99.7 ABG Base Excess 2.0 ABG Sodium 139 131 L VBG pH 7.469 VBG pCO2 35.0 L VBG pO2 40.4 H VBG HCO3 25.8 VBG Total CO2 23.7 VBG O2 Saturation 78.3 VBG Base Excess 1.9 Hemoglobin 12.5 L 8.0 L D Hematocrit 38.5 L 25.0 L Potassium 3.3 L 4.0 Glucose 106 305 H Ionized Calcium 1.11 L FiO2 80.00 POC Glucose Venous Ioniz Calcium 0.93 L Urine Color Urine Appearance Urine pH Ur Specific [place] Urine Protein Urine Glucose (UA) Urine Ketones Urine Blood Urine Nitrate Urine Bilirubin Urine Urobilinogen Urine Leukocytes Urine RBC Urine WBC Ur Squamous Epith Cells Urine Mucus Ur Culture Indicated? Blood Type Antibody Screen Crossmatch 03/23/17 03/23/17 03/23/17 08:45 09:39 09:39 WBC RBC Hgb Hct MCV MCH MCHC RDW Plt Count 112 L D MPV Neut % (Auto) Lymph % (Auto) Rankin % (Auto) Eos % (Auto) Baso % (Auto) Neut # (Auto) Lymph # (Auto) [place] # (Auto) Eos # (Auto) Baso # (Auto) Total Counted Immature Gran % Nucleated RBC % Immature Gran # Segmented Neutrophils Band Neutrophils Lymphocytes Monocytes Nucleated RBCs # Platelet Estimate Hypochromasia Microcytosis INR PT Patient/Control Mix Circ Anticoag PTT Patient Temperature 36 37 ABG pH 7.495 H ABG pH at Pt Temp 7.481 7.495 ABG pCO2 31.7 L ABG pCO2 at Pt Temp 34.2 31.7 ABG pO2 406.0 H ABG pO2 at Pt Temp 34.7 406.0 ABG HCO3 25.9 ABG Total CO2 22.2 L ABG O2 Saturation 100.0 ABG Base Excess 1.6 ABG Sodium 132 L 135 VBG pH 7.466 VBG pCO2 35.9 L VBG pO2 37.2 VBG HCO3 26.1 VBG Total CO2 23.9 VBG O2 Saturation 73.5 VBG Base Excess 2.3 Hemoglobin 8.8 L 9.7 L Hematocrit 27.5 L 29.9 L Potassium 4.3 3.7 Glucose 249 H 194 H Ionized Calcium 1.20 L FiO2 80.00 POC Glucose Venous Ioniz Calcium 0.99 L Urine Color Urine Appearance Urine pH Ur Specific [place] Urine Protein Urine Glucose (UA) Urine Ketones Urine Blood Urine Nitrate Urine Bilirubin Urine Urobilinogen Urine Leukocytes Urine RBC Urine WBC Ur Squamous Epith Cells Urine Mucus Ur Culture Indicated? Blood Type Antibody Screen Crossmatch 03/23/17 03/23/17 03/23/17 10:45 10:45 10:45 WBC 8.8 RBC 3.70 L Hgb 11.7 L Hct 32.6 L MCV 88.1 MCH 32 MCHC 35.9 RDW 13.1 Plt Count 180 D MPV 10.5 Neut % (Auto) 77.1 H Lymph % (Auto) 17.4 L Rankin % (Auto) 2.6 Eos % (Auto) 1.5 Baso % (Auto) 0.3 Neut # (Auto) 6.8 Lymph # (Auto) 1.5 Rankin # (Auto) 0.2 Eos # (Auto) 0.1 Baso # (Auto) 0.0 Total Counted 100 Immature Gran % 1.1 Nucleated RBC % 0.0 Immature Gran # 0.10 Segmented Neutrophils 80 Band Neutrophils 2 Lymphocytes 16 L Monocytes 2 Nucleated RBCs # 0.00 Platelet Estimate Adequate Hypochromasia 1+ Microcytosis Slight INR 1.2 PT Patient/Control Mix 12.3 Circ Anticoag PTT 30.9 D Patient Temperature ABG pH 7.522 H ABG pH at Pt Temp ABG pCO2 29.5 L ABG pCO2 at Pt Temp ABG pO2 151.0 H ABG pO2 at Pt Temp ABG HCO3 26.3 H ABG Total CO2 21.4 L ABG O2 Saturation 99.7 ABG Base Excess 2.1 ABG Sodium VBG pH VBG pCO2 VBG pO2 VBG HCO3 VBG Total CO2 VBG O2 Saturation VBG Base Excess Hemoglobin 11.6 L Hematocrit 35.9 L Potassium 5.2 H Glucose 179 H Ionized Calcium FiO2 POC Glucose Venous Ioniz Calcium Urine Color Urine Appearance Urine pH Ur Specific [place] Urine Protein Urine Glucose (UA) Urine Ketones Urine Blood Urine Nitrate Urine Bilirubin Urine Urobilinogen Urine Leukocytes Urine RBC Urine WBC Ur Squamous Epith Cells Urine Mucus Ur Culture Indicated? Blood Type Antibody Screen Crossmatch - EKG EKG results: interpreted by me EKG shows: sinus rhythm Quality Measures - VTE Contraindication to Pharmacological VTE Prophylaxis: High Risk of Bleeding Specialty Discharge - Follow Up or Referrals Nicole Liu Randall Scott, MD, personally performed the services described in this documentation, ascribed by Alka Castro RN in my presence, and it is both accurate and complete [id number] .
[2017-03-23] MEDS: POTASSIUM CHLORIDE RIDER 10 MEQ in PREMIX 1 EACH IV PRN (15:50)
[2017-03-23 16:00] LABS: ABG HCO3 24.4 MMOL/L (20-26); ABG Oxygen Saturation 99.2 % (95-100); ABG PCO2 35.6 MM HG (35-48); ABG PH 7.434 (7.35-7.45); ABG TCO2 21.6 MMOL/L (23-27); Glucose Heart Surgery 130 MG/DL (74-106); Hematocrit Heart Surgery 31.5 PERCENT (42-52); Hemoglobin Heart Surgery 10.2 G/DL (14.0-18.0); Potassium Heart/CVR 4.6 MMOL/L (3.5-5.1)
--- NOTE | 2017-03-23 16:30 | Hospitalist Progress Note ---
Hospitalist: Subjective Interval history: Patient is return from coronary bypass grafting 2. His blood sugars are well controlled on the insulin drip. He has no history of diabetes Exam - Constitutional Vitals: Period Temp Pulse Resp BP Sys/Ricci Pulse Ox Last 24 Hr 97.2 F-98.9 F 50-79 10-18 109-178/56-90 95-100 Results - Labs CBC & BMP: 03/23/17 10:45 03/23/17 10:45 Quality Measures - VTE Contraindication to Pharmacological VTE Prophylaxis: High Risk of Bleeding Specialty Discharge - Follow Up or Referrals
--- NOTE | 2017-03-23 16:34 | Hospitalist Consult Note ---
Assessment and Plan (1) Acute non-ST segment elevation myocardial infarction Status: Acute Assessment and plan: s/p cabg times 2 Current Visit: Yes (2) Unspecified sleep apnea Status: Acute Assessment and plan: will need to have autotitration cpap at night when he sleeps Current Visit: Yes (3) Glucose intolerance (impaired glucose tolerance) Status: Acute Assessment and plan: insulin drip per protocol, hgb a1c Current Visit: Yes History of Present Illness - Data of Consult Consult date: 03/23/17 Requesting Physician: Don Elliott - Consult Narrative Reason for consult: bs management History of present illness: Mr. Nixon is a 71 year old male who underwent coronary bypass grafting 2. His blood sugars are well controlled on the insulin drip. He has no history of diabetes. No hemoglobin A1c found CC: Don Elliott MD - Home Medications and Allergies Home Medications: Home Medications Medication Instructions Recorded Confirmed Type Aspirin [Ecotrin] 81 mg PO DAILY 03/19/17 03/19/17 History Lisinopril/Hydrochlorothiazide 1 each PO DAILY 03/19/17 03/19/17 History [Lisinopril-Hctz 20-25 mg Tab] Allergies/Adverse Reactions: Allergies Allergy/AdvReac Type Severity Reaction Status Date / Time No Known Allergies Allergy Verified 03/19/17 10:48 Medical,Surgical,& Family Hx - Medical History Cardio: History of: CAD (This is of recent diagnosis), Hypertension Genitourinary: History of: Prostate Problems - Surgical History Cardiac Surgeries: Sugical HX of: Cardiac Catheterization, Cardiac Surgery Reproductive Surgeries: Surgical HX of;: Prostate Surgery - Family History Family History: Reports;: Family Heart Disease, Family Hypertension - Social History Smoking Status: Former smoker Frequency of Alcohol Use: None Type of Drug Use: None Marital Status: Lives With:: Spouse Functional capacity: independent ambulation ROS unobtainable: due to endotracheal tube Exam - Constitutional Vitals: Period Temp Pulse Resp BP Sys/Ricci Pulse Ox Last 24 Hr 97.2 F-98.9 F 50-79 8-18 109-178/56-90 95-100 General appearance: mild distress, over weight - Head Head exam: Present: normal inspection, normocephalic - ENT ENT exam: Present: normal exam, normal external ear exam - Neck Neck exam: Absent: lymphadenopathy, thyromegaly - Respiratory Respiratory exam: Present: decreased breath sounds, rales - Cardiovascular Cardiovascular exam: Present: regular rate and rhythm - GI/Abdominal GI/Abdominal exam: Present: normal bowel sounds, soft - Extremities Exam Extremities exam: Present: normal inspection, normal capillary refill - Neurological Exam Neurological exam: Present: altered Results - Labs CBC & BMP: 03/23/17 10:45 03/23/17 10:45 Lab Results: I have reviewed the past 24 hour labs - Diagnostic Findings Procedure: Chest x-ray: report reviewed by me (atelectasis in left lung, sternotomy ) Quality Measures - VTE Contraindication to Pharmacological VTE Prophylaxis: High Risk of Bleeding Specialty Discharge - Follow Up or Referrals
[2017-03-23] MEDS ORDERED: ACETAMINOPHEN 325 MG/10.15 ML UDCUP ONE (16:58)
[2017-03-23 18:06] LABS: ABG Base Excess -0.1 MMOL/L (-2.5-2.5); ABG HCO3 24.4 MMOL/L (20-26); ABG Oxygen Saturation 98.9 % (95-100); ABG TCO2 21.4 MMOL/L (23-27); Glucose Heart Surgery 121 MG/DL (74-106); Hematocrit Heart Surgery 33.4 PERCENT (42-52); Hemoglobin Heart Surgery 10.8 G/DL (14.0-18.0); Potassium Heart/CVR 4.1 MMOL/L (3.5-5.1)
[2017-03-23] MEDS: CEFUROXIME INJ 1,500 MG in SODIUM CHLORIDE 0.9% 100 ML IV SCH (18:44)
[2017-03-23 19:02] LABS: CKMB % 4.2 %
[2017-03-23 19:09] LABS: Troponin I Only 7.76 NG/ML (0.00-0.045)
[2017-03-23] MEDS ORDERED: FUROSEMIDE 40 MG/4 ML VIAL IV ONE (19:09)
[2017-03-23 21:09] LABS: VBG Base Excess 1.1 MEQ/L (0-4); VBG HCO3 24.7 MEQ/L (24-28); VBG Oxygen Saturation 61.2 %; VBG PCO2 41.7 MMHG (41-51); VBG PH 7.402; VBG PO2 33.7 MMHG (17-40)
[2017-03-23 22:08] LABS: ABG HCO3 21.6 MMOL/L (20-26); ABG Oxygen Saturation 98.5 % (95-100); ABG PCO2 33.3 MM HG (35-48); ABG PO2 150.8 MM HG (80-95); ABG TCO2 22.6 MMOL/L (23-27); Glucose Heart Surgery 125 MG/DL (74-106); Hemoglobin Heart Surgery 12.4 G/DL (14.0-18.0); Potassium Heart/CVR 4.7 MMOL/L (3.5-5.1)
[2017-03-24] MEDS ORDERED: GLUCAGON 1 MG VIAL IM PRN ×3 (00:03→10:15)
[2017-03-24] MEDS ORDERED: DEXTROSE 50% 25 GM/50 ML VIAL IV PRN ×3 (00:03→10:15)
[2017-03-24] MEDS: INSULIN REGULAR 100 UNIT/ML SUBCUT SCH ×3 (00:26→07:41)
[2017-03-24] MEDS ORDERED: FUROSEMIDE 40 MG/4 ML VIAL IV ONE (01:58)
[2017-03-24 03:13] LABS: Basophils % 0.1 % (0.0-0.8); Hematocrit 33.4 VOL% (42.0-52.0); Hemoglobin 11.6 GM/DL (14.0-18.0); Immature Granulocytes % 0.6 %; Lymphocytes # 1.4 10*3/uL (1.4-4.0); Lymphocytes % 7.5 % (21.2-54.2); Mean Corpuscular HGB Conc 34.7 GM/DL (32-36); Mean Corpuscular Hemoglobin 31 PG (27-34); Mean Corpuscular Volume 90.5 FL (87-102); Monocytes # 0.5 10*3/uL (0.11-0.8); Monocytes % 2.7 % (1.7-12.7); Neutrophils # 16.2 10*3/uL (1.4-7.4); Neutrophils % 89.1 % (38.7-73.9); Platelet Count 175 T/CUMM (130-400); Red Blood Count 3.69 MC/CUMM (3.8-5.5); Red Cell Distribution Width 13.2 % (9.3-17.3); White Blood Count 18.2 T/CUMM (4-12)
[2017-03-24 03:15] LABS: ABG Base Excess -2.3 MMOL/L (-2.5-2.5); ABG HCO3 22.5 MMOL/L (20-26); ABG Oxygen Saturation 98.7 % (95-100); ABG PCO2 38.3 MM HG (35-48); ABG PH 7.377 (7.35-7.45); ABG TCO2 20.4 MMOL/L (23-27); Glucose Heart Surgery 157 MG/DL (74-106); Hemoglobin Heart Surgery 10.7 G/DL (14.0-18.0); Potassium Heart/CVR 4.7 MMOL/L (3.5-5.1)
[2017-03-24 03:39] LABS: Band Neutrophils 2 % (0-10); Lymphocytes 12 % (20-55); Segmented Neutrophils 82 % (50-85); Total Cells Counted 100
[2017-03-24 03:40] LABS: Hypochromasia 1+; Platelet Estimate Normal
[2017-03-24 03:59] LABS: CKMB % 3.1 %
[2017-03-24 04:00] LABS: Troponin I Only 5.29 NG/ML (0.00-0.045)
[2017-03-24 04:07] LABS: Albumin 3.4 G/DL (3.4-5.0); Bilirubin,Direct 0.1 MG/DL (0.0-0.20); Bilirubin,Total 0.5 MG/DL (0.2-1.0); Calcium 8.7 MG/DL (8.5-10.1); Potassium 4.8 MMOL/L (3.5-5.1); Total Protein 5.9 G/DL (6.4-8.3)
[2017-03-24 04:14] LABS: ABG Base Excess -1.9 MMOL/L (-2.5-2.5); ABG HCO3 22.8 MMOL/L (20-26); ABG Oxygen Saturation 98.6 % (95-100); ABG PCO2 36.4 MM HG (35-48); ABG PH 7.398 (7.35-7.45); Glucose Heart Surgery 159 MG/DL (74-106); Hematocrit Heart Surgery 35.6 PERCENT (42-52); Hemoglobin Heart Surgery 11.6 G/DL (14.0-18.0); Potassium Heart/CVR 4.6 MMOL/L (3.5-5.1)
[2017-03-24] MEDS: POTASSIUM CHLORIDE RIDER 10 MEQ in PREMIX 1 EACH IV PRN (04:23)
[2017-03-24] MEDS: KETOROLAC 30 MG/1 ML VIAL IV SCH (04:44)
[2017-03-24] MEDS: CEFUROXIME INJ 1,500 MG in SODIUM CHLORIDE 0.9% 100 ML IV SCH (06:04)
[2017-03-24 06:21] LABS: ABG PCO2 37.6 MM HG (35-48); ABG PH 7.398 (7.35-7.45); ABG PO2 102.5 MM HG (80-95)
[2017-03-24 06:22] LABS: ABG Base Excess -1.8 MMOL/L (-2.5-2.5); ABG HCO3 22.7 MMOL/L (20-26); ABG Oxygen Saturation 97.1 % (95-100); ABG TCO2 23.8 MMOL/L (23-27); Glucose Heart Surgery 141 MG/DL (74-106); Hemoglobin Heart Surgery 11.9 G/DL (14.0-18.0); Potassium Heart/CVR 4.8 MMOL/L (3.5-5.1)
--- NOTE | 2017-03-24 07:30 | EKG Report ---
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
--- NOTE | 2017-03-24 08:15 | Hospitalist Progress Note ---
Assessment and Plan (1) Acute non-ST segment elevation myocardial infarction Status: Acute Assessment and plan: s/p cabg times 2 Current Visit: Yes (2) Unspecified sleep apnea Status: Acute Assessment and plan: will need to have autotitration cpap at night when he sleeps Current Visit: Yes (3) Glucose intolerance (impaired glucose tolerance) Status: Acute Assessment and plan: lantus 40 units sq bid , hgb a1c of 6 Current Visit: Yes Hospitalist: Subjective Interval history: Patient has been extubated and his chest tubes have been removed. His insulin drip was turned off this morning. He is 36 units of insulin over an 8 hour period. I will give him 40 of Lantus most likely twice a day Exam - Constitutional Vitals: Period Temp Pulse Resp BP Sys/Ricci Pulse Ox Last 24 Hr 97.2 F-98.5 F 60-80 6-14 101-178/46-90 97-100 Exam: Heart Rate-[RRR] Lungs-[Clear, diminished] GI-[diminished bs soft, NT] Results - Labs CBC & BMP: 03/24/17 03:00 03/24/17 03:00 Lab Results: I have reviewed the past 24 hour labs Quality Measures - VTE Contraindication to Pharmacological VTE Prophylaxis: High Risk of Bleeding Specialty Discharge - Follow Up or Referrals
[2017-03-24] MEDS ORDERED: PROMETHAZINE INJ 12.5 MG in SODIUM CHLORIDE 0.9% 50 ML IV PRN (08:37)
--- NOTE | 2017-03-24 08:46 | Cardiothoracic Progress Note ---
Cardiothoracic Subjective Interval history: Patient is awake alert and extubated. Vital signs have been stable through the night. Cardiac output is 4.7 L/min. Blood gases have been satisfactory postextubation. Urine output has been adequate. Chest tube drainage is minimal and his chest tubes are discontinued. I think he can be transferred to telemetry. Overall his progress is satisfactory. Exam (Progress Note) - Constitutional Vitals: Period Temp Pulse Resp BP Sys/Ricci Pulse Ox Last 24 Hr 97.2 F-98.5 F 60-80 6-14 101-178/46-90 97-100 Result/EKG - Labs CBC & BMP: 03/24/17 03:00 03/24/17 03:00 Labs: Laboratory Results - last 24 hr 03/22/17 03/23/17 03/23/17 04:42 08:45 09:39 WBC RBC Hgb Hct MCV MCH MCHC RDW Plt Count 112 L D MPV Neut % (Auto) Lymph % (Auto) Treasure % (Auto) Eos % (Auto) Baso % (Auto) Neut # (Auto) Lymph # (Auto) Treasure # (Auto) Eos # (Auto) Baso # (Auto) Total Counted Immature Gran % Nucleated RBC % Immature Gran # Segmented Neutrophils Band Neutrophils Lymphocytes Monocytes Nucleated RBCs # Platelet Estimate Hypochromasia Microcytosis INR PT Patient/Control Mix Circ Anticoag PTT Patient Temperature 36 ABG pH ABG pH at Pt Temp 7.481 ABG pCO2 ABG pCO2 at Pt Temp 34.2 ABG pO2 ABG pO2 at Pt Temp 34.7 ABG HCO3 ABG Total CO2 ABG O2 Saturation ABG Base Excess ABG Sodium 132 L VBG pH 7.466 VBG pCO2 35.9 L VBG pO2 37.2 VBG HCO3 26.1 VBG Total CO2 23.9 VBG O2 Saturation 73.5 VBG Base Excess 2.3 Hemoglobin 8.8 L Hematocrit 27.5 L Potassium 4.3 Glucose 249 H Ionized Calcium FiO2 80.00 Sodium Chloride Carbon Dioxide Anion Gap BUN Creatinine GFR Calculation BUN/Creatinine Ratio POC Glucose Hemoglobin A1c Calculated Osmolality Calcium Venous Ioniz Calcium 0.99 L Magnesium Total Bilirubin Direct Bilirubin AST ALT Alkaline Phosphatase Total Creatine Kinase CK-MB (CK-2) CK and CKMB Interp Troponin I Total Protein Albumin Globulin Albumin/Globulin Ratio Blood Type O NEGATIVE Antibody Screen Negative Crossmatch See Detail 03/23/17 03/23/17 03/23/17 09:39 10:45 10:45 WBC 8.8 RBC 3.70 L Hgb 11.7 L Hct 32.6 L MCV 88.1 MCH 32 MCHC 35.9 RDW 13.1 Plt Count 180 D MPV 10.5 Neut % (Auto) 77.1 H Lymph % (Auto) 17.4 L Treasure % (Auto) 2.6 Eos % (Auto) 1.5 Baso % (Auto) 0.3 Neut # (Auto) 6.8 Lymph # (Auto) 1.5 Treasure # (Auto) 0.2 Eos # (Auto) 0.1 Baso # (Auto) 0.0 Total Counted 100 Immature Gran % 1.1 Nucleated RBC % 0.0 Immature Gran # 0.10 Segmented Neutrophils 80 Band Neutrophils 2 Lymphocytes 16 L Monocytes 2 Nucleated RBCs # 0.00 Platelet Estimate Adequate Hypochromasia 1+ Microcytosis Slight INR 1.2 PT Patient/Control Mix 12.3 Circ Anticoag PTT 30.9 D Patient Temperature 37 ABG pH 7.495 H ABG pH at Pt Temp 7.495 ABG pCO2 31.7 L ABG pCO2 at Pt Temp 31.7 ABG pO2 406.0 H ABG pO2 at Pt Temp 406.0 ABG HCO3 25.9 ABG Total CO2 22.2 L ABG O2 Saturation 100.0 ABG Base Excess 1.6 ABG Sodium 135 VBG pH VBG pCO2 VBG pO2 VBG HCO3 VBG Total CO2 VBG O2 Saturation VBG Base Excess Hemoglobin 9.7 L Hematocrit 29.9 L Potassium 3.7 Glucose 194 H Ionized Calcium 1.20 L FiO2 Sodium Chloride Carbon Dioxide Anion Gap BUN Creatinine GFR Calculation BUN/Creatinine Ratio POC Glucose Hemoglobin A1c Calculated Osmolality Calcium Venous Ioniz Calcium Magnesium Total Bilirubin Direct Bilirubin AST ALT Alkaline Phosphatase Total Creatine Kinase CK-MB (CK-2) CK and CKMB Interp Troponin I Total Protein Albumin Globulin Albumin/Globulin Ratio Blood Type Antibody Screen Crossmatch 03/23/17 03/23/17 03/23/17 10:45 10:45 10:45 WBC RBC Hgb Hct MCV MCH MCHC RDW Plt Count MPV Neut % (Auto) Lymph % (Auto) Treasure % (Auto) Eos % (Auto) Baso % (Auto) Neut # (Auto) Lymph # (Auto) [place] # (Auto) Eos # (Auto) Baso # (Auto) Total Counted Immature Gran % Nucleated RBC % Immature Gran # Segmented Neutrophils Band Neutrophils Lymphocytes Monocytes Nucleated RBCs # Platelet Estimate Hypochromasia Microcytosis INR PT Patient/Control Mix Circ Anticoag PTT Patient Temperature ABG pH 7.522 H ABG pH at Pt Temp ABG pCO2 29.5 L ABG pCO2 at Pt Temp ABG pO2 151.0 H ABG pO2 at Pt Temp ABG HCO3 26.3 H ABG Total CO2 21.4 L ABG O2 Saturation 99.7 ABG Base Excess 2.1 ABG Sodium VBG pH VBG pCO2 VBG pO2 VBG HCO3 VBG Total CO2 VBG O2 Saturation VBG Base Excess Hemoglobin 11.6 L Hematocrit 35.9 L Potassium 5.5 H 5.2 H Glucose 169 H 179 H Ionized Calcium FiO2 Sodium 139 Chloride 107 Carbon Dioxide 24 Anion Gap 13.5 BUN 15 Creatinine 1.00 GFR Calculation 88 BUN/Creatinine Ratio 15.00 POC Glucose Hemoglobin A1c Calculated Osmolality 281.5 Calcium 8.8 Venous Ioniz Calcium Magnesium 2.3 Total Bilirubin 0.90 Direct Bilirubin AST 59 H ALT 17 Alkaline Phosphatase 45 Total Creatine Kinase 280 D CK-MB (CK-2) 16.9 H D CK and CKMB Interp 6.0 Troponin I 11.200 H D Total Protein 5.6 L Albumin 3.0 L Globulin 2.6 Albumin/Globulin Ratio 1.1 Blood Type Antibody Screen Crossmatch 03/23/17 03/23/17 03/23/17 10:45 11:58 12:30 WBC RBC Hgb Hct MCV MCH MCHC RDW Plt Count MPV Neut % (Auto) Lymph % (Auto) Treasure % (Auto) Eos % (Auto) Baso % (Auto) Neut # (Auto) Lymph # (Auto) [place] # (Auto) Eos # (Auto) Baso # (Auto) Total Counted Immature Gran % Nucleated RBC % Immature Gran # Segmented Neutrophils Band Neutrophils Lymphocytes Monocytes Nucleated RBCs # Platelet Estimate Hypochromasia Microcytosis INR PT Patient/Control Mix Circ Anticoag PTT Patient Temperature ABG pH 7.484 H ABG pH at Pt Temp ABG pCO2 30.8 L ABG pCO2 at Pt Temp ABG pO2 118.0 H ABG pO2 at Pt Temp ABG HCO3 25.0 ABG Total CO2 20.3 L ABG O2 Saturation 98.8 ABG Base Excess 0.6 ABG Sodium VBG pH VBG pCO2 VBG pO2 VBG HCO3 VBG Total CO2 VBG O2 Saturation VBG Base Excess Hemoglobin 12.4 L Hematocrit 38.1 L Potassium 3.3 L Glucose 180 H Ionized Calcium FiO2 Sodium Chloride Carbon Dioxide Anion Gap BUN Creatinine GFR Calculation BUN/Creatinine Ratio POC Glucose 171 H Hemoglobin A1c 6.0 Calculated Osmolality Calcium Venous Ioniz Calcium Magnesium Total Bilirubin Direct Bilirubin AST ALT Alkaline Phosphatase Total Creatine Kinase CK-MB (CK-2) CK and CKMB Interp Troponin I Total Protein Albumin Globulin Albumin/Globulin Ratio Blood Type Antibody Screen Crossmatch 03/23/17 03/23/17 03/23/17 13:07 13:49 14:59 WBC RBC Hgb Hct MCV MCH MCHC RDW Plt Count MPV Neut % (Auto) Lymph % (Auto) Treasure % (Auto) Eos % (Auto) Baso % (Auto) Neut # (Auto) Lymph # (Auto) [place] # (Auto) Eos # (Auto) Baso # (Auto) Total Counted Immature Gran % Nucleated RBC % Immature Gran # Segmented Neutrophils Band Neutrophils Lymphocytes Monocytes Nucleated RBCs # Platelet Estimate Hypochromasia Microcytosis INR PT Patient/Control Mix Circ Anticoag PTT Patient Temperature ABG pH ABG pH at Pt Temp ABG pCO2 ABG pCO2 at Pt Temp ABG pO2 ABG pO2 at Pt Temp ABG HCO3 ABG Total CO2 ABG O2 Saturation ABG Base Excess ABG Sodium VBG pH VBG pCO2 VBG pO2 VBG HCO3 VBG Total CO2 VBG O2 Saturation VBG Base Excess Hemoglobin Hematocrit Potassium Glucose Ionized Calcium FiO2 Sodium Chloride Carbon Dioxide Anion Gap BUN Creatinine GFR Calculation BUN/Creatinine Ratio POC Glucose 158 H 170 H 134 H Hemoglobin A1c Calculated Osmolality Calcium Venous Ioniz Calcium Magnesium Total Bilirubin Direct Bilirubin AST ALT Alkaline Phosphatase Total Creatine Kinase CK-MB (CK-2) CK and CKMB Interp Troponin I Total Protein Albumin Globulin Albumin/Globulin Ratio Blood Type Antibody Screen Crossmatch 03/23/17 03/23/17 03/23/17 15:00 16:00 16:10 WBC RBC Hgb Hct MCV MCH MCHC RDW Plt Count MPV Neut % (Auto) Lymph % (Auto) [place] % (Auto) Eos % (Auto) Baso % (Auto) Neut # (Auto) Lymph # (Auto) [place] # (Auto) Eos # (Auto) Baso # (Auto) Total Counted Immature Gran % Nucleated RBC % Immature Gran # Segmented Neutrophils Band Neutrophils Lymphocytes Monocytes Nucleated RBCs # Platelet Estimate Hypochromasia Microcytosis INR PT Patient/Control Mix Circ Anticoag PTT Patient Temperature ABG pH 7.500 H 7.434 ABG pH at Pt Temp ABG pCO2 31.0 L 35.6 ABG pCO2 at Pt Temp ABG pO2 107.0 H 120.0 H ABG pO2 at Pt Temp ABG HCO3 25.8 24.4 ABG Total CO2 21.7 L 21.6 L ABG O2 Saturation 98.5 99.2 ABG Base Excess 1.6 0.0 ABG Sodium VBG pH VBG pCO2 VBG pO2 VBG HCO3 VBG Total CO2 VBG O2 Saturation VBG Base Excess Hemoglobin 10.6 L 10.2 L Hematocrit 32.8 L 31.5 L Potassium 3.6 4.6 Glucose 136 H 130 H Ionized Calcium FiO2 Sodium Chloride Carbon Dioxide Anion Gap BUN Creatinine GFR Calculation BUN/Creatinine Ratio POC Glucose 127 H Hemoglobin A1c Calculated Osmolality Calcium Venous Ioniz Calcium Magnesium Total Bilirubin Direct Bilirubin AST ALT Alkaline Phosphatase Total Creatine Kinase CK-MB (CK-2) CK and CKMB Interp Troponin I Total Protein Albumin Globulin Albumin/Globulin Ratio Blood Type Antibody Screen Crossmatch 03/23/17 03/23/17 03/23/17 17:04 18:00 18:03 WBC RBC Hgb Hct MCV MCH MCHC RDW Plt Count MPV Neut % (Auto) Lymph % (Auto) [place] % (Auto) Eos % (Auto) Baso % (Auto) Neut # (Auto) Lymph # (Auto) [place] # (Auto) Eos # (Auto) Baso # (Auto) Total Counted Immature Gran % Nucleated RBC % Immature Gran # Segmented Neutrophils Band Neutrophils Lymphocytes Monocytes Nucleated RBCs # Platelet Estimate Hypochromasia Microcytosis INR PT Patient/Control Mix Circ Anticoag PTT Patient Temperature ABG pH 7.430 ABG pH at Pt Temp ABG pCO2 36.0 ABG pCO2 at Pt Temp ABG pO2 128.0 H ABG pO2 at Pt Temp ABG HCO3 24.4 ABG Total CO2 21.4 L ABG O2 Saturation 98.9 ABG Base Excess -0.1 ABG Sodium VBG pH VBG pCO2 VBG pO2 VBG HCO3 VBG Total CO2 VBG O2 Saturation VBG Base Excess Hemoglobin 10.8 L Hematocrit 33.4 L Potassium 4.1 Glucose 121 H Ionized Calcium FiO2 Sodium Chloride Carbon Dioxide Anion Gap BUN Creatinine GFR Calculation BUN/Creatinine Ratio POC Glucose 123 H Hemoglobin A1c Calculated Osmolality Calcium Venous Ioniz Calcium Magnesium Total Bilirubin Direct Bilirubin AST ALT Alkaline Phosphatase Total Creatine Kinase 324 H CK-MB (CK-2) 13.5 H CK and CKMB Interp 4.2 Troponin I 7.760 H D Total Protein Albumin Globulin Albumin/Globulin Ratio Blood Type Antibody Screen Crossmatch 03/23/17 03/23/17 03/24/17 21:02 22:00 03:00 WBC RBC Hgb Hct MCV MCH MCHC RDW Plt Count MPV Neut % (Auto) Lymph % (Auto) [place] % (Auto) Eos % (Auto) Baso % (Auto) Neut # (Auto) Lymph # (Auto) [place] # (Auto) Eos # (Auto) Baso # (Auto) Total Counted Immature Gran % Nucleated RBC % Immature Gran # Segmented Neutrophils Band Neutrophils Lymphocytes Monocytes Nucleated RBCs # Platelet Estimate Hypochromasia Microcytosis INR PT Patient/Control Mix Circ Anticoag PTT Patient Temperature ABG pH 7.430 ABG pH at Pt Temp ABG pCO2 33.3 L ABG pCO2 at Pt Temp ABG pO2 150.8 H ABG pO2 at Pt Temp ABG HCO3 21.6 ABG Total CO2 22.6 L ABG O2 Saturation 98.5 ABG Base Excess -2.0 ABG Sodium VBG pH 7.402 VBG pCO2 41.7 VBG pO2 33.7 VBG HCO3 24.7 VBG Total CO2 23.4 VBG O2 Saturation 61.2 VBG Base Excess 1.1 Hemoglobin 12.4 L Hematocrit 36.0 L Potassium 4.7 Glucose 125 H Ionized Calcium FiO2 21.00 Sodium Chloride Carbon Dioxide Anion Gap BUN Creatinine GFR Calculation BUN/Creatinine Ratio POC Glucose Hemoglobin A1c Calculated Osmolality Calcium Venous Ioniz Calcium Magnesium Total Bilirubin Direct Bilirubin AST ALT Alkaline Phosphatase Total Creatine Kinase 370 H CK-MB (CK-2) 11.5 H CK and CKMB Interp 3.1 Troponin I 5.290 H D Total Protein Albumin Globulin Albumin/Globulin Ratio Blood Type Antibody Screen Crossmatch 03/24/17 03/24/17 03/24/17 03:00 03:00 03:00 WBC 18.2 H D RBC 3.69 L Hgb 11.6 L Hct 33.4 L MCV 90.5 MCH 31 MCHC 34.7 RDW 13.2 Plt Count 175 MPV 11.0 Neut % (Auto) 89.1 H Lymph % (Auto) 7.5 L Treasure % (Auto) 2.7 Eos % (Auto) 0.0 Baso % (Auto) 0.1 Neut # (Auto) 16.2 H Lymph # (Auto) 1.4 Treasure # (Auto) 0.5 Eos # (Auto) 0.0 Baso # (Auto) 0.0 Total Counted 100 Immature Gran % 0.6 Nucleated RBC % 0.0 Immature Gran # 0.10 Segmented Neutrophils 82 Band Neutrophils 2 Lymphocytes 12 L Monocytes 4 Nucleated RBCs # 0.00 Platelet Estimate Normal Hypochromasia 1+ Microcytosis INR PT Patient/Control Mix Circ Anticoag PTT Patient Temperature ABG pH 7.377 ABG pH at Pt Temp ABG pCO2 38.3 ABG pCO2 at Pt Temp ABG pO2 121.0 H ABG pO2 at Pt Temp ABG HCO3 22.5 ABG Total CO2 20.4 L ABG O2 Saturation 98.7 ABG Base Excess -2.3 ABG Sodium VBG pH VBG pCO2 VBG pO2 VBG HCO3 VBG Total CO2 VBG O2 Saturation VBG Base Excess Hemoglobin 10.7 L Hematocrit 33.0 L Potassium 4.8 4.7 Glucose 141 H 157 H Ionized Calcium FiO2 Sodium 143 Chloride 110 H Carbon Dioxide 23 Anion Gap 14.8 BUN 25 H D Creatinine 1.50 H GFR Calculation 55 BUN/Creatinine Ratio 16.00 POC Glucose Hemoglobin A1c Calculated Osmolality 290.0 Calcium 8.7 Venous Ioniz Calcium Magnesium 2.0 Total Bilirubin 0.50 Direct Bilirubin 0.10 AST 37 ALT 18 Alkaline Phosphatase 42 L Total Creatine Kinase CK-MB (CK-2) CK and CKMB Interp Troponin I Total Protein 5.9 L Albumin 3.4 Globulin 2.5 Albumin/Globulin Ratio 1.3 Blood Type Antibody Screen Crossmatch 03/24/17 03/24/17 04:00 06:02 WBC RBC Hgb Hct MCV MCH MCHC RDW Plt Count MPV Neut % (Auto) Lymph % (Auto) [place] % (Auto) Eos % (Auto) Baso % (Auto) Neut # (Auto) Lymph # (Auto) [place] # (Auto) Eos # (Auto) Baso # (Auto) Total Counted Immature Gran % Nucleated RBC % Immature Gran # Segmented Neutrophils Band Neutrophils Lymphocytes Monocytes Nucleated RBCs # Platelet Estimate Hypochromasia Microcytosis INR PT Patient/Control Mix Circ Anticoag PTT Patient Temperature ABG pH 7.398 7.398 ABG pH at Pt Temp ABG pCO2 36.4 37.6 ABG pCO2 at Pt Temp ABG pO2 121.0 H 102.5 H ABG pO2 at Pt Temp ABG HCO3 22.8 22.7 ABG Total CO2 20.0 L 23.8 ABG O2 Saturation 98.6 97.1 ABG Base Excess -1.9 -1.8 ABG Sodium VBG pH VBG pCO2 VBG pO2 VBG HCO3 VBG Total CO2 VBG O2 Saturation VBG Base Excess Hemoglobin 11.6 L 11.9 L Hematocrit 35.6 L 35.0 L Potassium 4.6 4.8 Glucose 159 H 141 H Ionized Calcium FiO2 Sodium Chloride Carbon Dioxide Anion Gap BUN Creatinine GFR Calculation BUN/Creatinine Ratio POC Glucose Hemoglobin A1c Calculated Osmolality Calcium Venous Ioniz Calcium Magnesium Total Bilirubin Direct Bilirubin AST ALT Alkaline Phosphatase Total Creatine Kinase CK-MB (CK-2) CK and CKMB Interp Troponin I Total Protein Albumin Globulin Albumin/Globulin Ratio Blood Type Antibody Screen Crossmatch Quality Measures - VTE Contraindication to Pharmacological VTE Prophylaxis: High Risk of Bleeding Specialty Discharge - Follow Up or Referrals
[2017-03-24] MEDS ORDERED: LISINOPRIL/HCTZ 20-25 MG TABLET PO SCH (09:00)
[2017-03-24] MEDS ORDERED: INSULIN GLARGINE 100 UNIT/ML SUBCUT SCH (09:00)
[2017-03-24] MEDS: ASPIRIN EC 81 MG TABLET PO SCH (09:06)
[2017-03-24] MEDS: CHLORHEXIDINE 0.12% ORAL RINSE 60 ML BOTTLE SWISH/SPIT SCH ×3 (09:07→20:59)
--- NOTE | 2017-03-24 09:53 | Cardiology Progress Note ---
Assessment and Plan (1) Acute non-ST segment elevation myocardial infarction Status: Acute Assessment and plan: Initial assessment and plan March 22, 2017: 1. I have examined and interviewed Mr. Nixon. He has multivessel coronary artery disease status post non-STEMI scheduled for CABG in the morning by Dr. Elliott. 2. He is asymptomatic and hemodynamically stable on appropriate medications. 3. No new recommendations Assessment and plan March 23, 2017: 1. Postop day 0 from two-vessel CABG doing well 2. Hemodynamic is stable with reduced cardiac index as expected about 1.6 L/min /m 3. Currently on nitroglycerin infusion as well as insulin infusion with as needed albumin 4. Maintain normal sinus rhythm 5. Consider low-dose beta-gene when able to tolerate March 24, 2017: 1. Day 1 status post two-vessel CABG doing very well, extubated sitting up in chair eating breakfast 2. Maintain normal sinus rhythm with good urine output prior to Kohler being pulled this morning 3. Cardiac output was nearly 5 L/min before he was disconnected this morning 4. Got IV diuresis during the night, with prerenal azotemia and creatinine up to 1.5; would minimize diuretics for now and change lisinopril HCTZ to very low- dose lisinopril 2.5 mg twice daily 5. At high intensity statin with Lipitor 80 daily Current Visit: Yes (2) Coronary artery disease Status: Chronic Current Visit: Yes Qualifiers: Coronary Disease-Associated Artery/Lesion type: [place] artery [place] vs. transplanted heart: [place] heart Associated angina: with stable angina Qualified Code(s): I25.118 - Atherosclerotic heart disease of [place] coronary artery with other forms of angina pectoris (3) Dyslipidemia Status: Chronic Current Visit: Yes (4) Hypertension Status: Chronic Current Visit: Yes Cardiology - PN: Subj Interval history: Mr. Nixon is sitting up in a chair eating breakfast. He has no shortness of breath or complaint. His Kohler has been pulled and he has sinus rhythm with stable blood pressure. His cardiac output was nearly 5 before he was disconnected. He will be transferred to the floor shortly. He is not having any chest discomfort while stationary. Exam (Progress Note) - Constitutional Vitals: Period Temp Pulse Resp BP Sys/Ricci Pulse Ox Last 24 Hr 97.2 F-98.5 F 60-80 6-14 101-178/46-90 97-100 General appearance: normal weight, no acute distress - Head Head exam: Present: normal inspection, normocephalic, atraumatic - ENT ENT exam: Present: normal exam - Neck Neck exam: Present: normal inspection, other (Central line in neck vein) - Respiratory Respiratory exam: Present: rales. Absent: stridor, wheezes - Cardiovascular Cardiovascular exam: Present: regular rate and rhythm. Absent: diastolic murmur , rubs - GI/Abdominal GI/Abdominal exam: Present: soft. Absent: tenderness - Extremities Exam Extremities exam: Present: edema (Trace edema at vein harvest site) - Neurological Exam Neurological exam: Present: oriented X3 Result/EKG - Labs CBC & BMP: 03/24/17 03:00 03/24/17 03:00 Labs: Laboratory Results - last 24 hr 03/22/17 03/23/17 03/23/17 04:42 10:45 10:45 WBC 8.8 RBC 3.70 L Hgb 11.7 L Hct 32.6 L MCV 88.1 MCH 32 MCHC 35.9 RDW 13.1 Plt Count 180 D MPV 10.5 Neut % (Auto) 77.1 H Lymph % (Auto) 17.4 L [place] % (Auto) 2.6 Eos % (Auto) 1.5 Baso % (Auto) 0.3 Neut # (Auto) 6.8 Lymph # (Auto) 1.5 [place] # (Auto) 0.2 Eos # (Auto) 0.1 Baso # (Auto) 0.0 Total Counted 100 Immature Gran % 1.1 Nucleated RBC % 0.0 Immature Gran # 0.10 Segmented Neutrophils 80 Band Neutrophils 2 Lymphocytes 16 L Monocytes 2 Nucleated RBCs # 0.00 Platelet Estimate Adequate Hypochromasia 1+ Microcytosis Slight INR 1.2 PT Patient/Control Mix 12.3 Circ Anticoag PTT 30.9 D ABG pH ABG pCO2 ABG pO2 ABG HCO3 ABG Total CO2 ABG O2 Saturation ABG Base Excess VBG pH VBG pCO2 VBG pO2 VBG HCO3 VBG Total CO2 VBG O2 Saturation VBG Base Excess Hemoglobin Hematocrit Potassium Glucose FiO2 Sodium Chloride Carbon Dioxide Anion Gap BUN Creatinine GFR Calculation BUN/Creatinine Ratio POC Glucose Hemoglobin A1c Calculated Osmolality Calcium Magnesium Total Bilirubin Direct Bilirubin AST ALT Alkaline Phosphatase Total Creatine Kinase CK-MB (CK-2) CK and CKMB Interp Troponin I Total Protein Albumin Globulin Albumin/Globulin Ratio Blood Type O NEGATIVE Antibody Screen Negative Crossmatch See Detail 03/23/17 03/23/17 03/23/17 10:45 10:45 10:45 WBC RBC Hgb Hct MCV MCH MCHC RDW Plt Count MPV Neut % (Auto) Lymph % (Auto) [place] % (Auto) Eos % (Auto) Baso % (Auto) Neut # (Auto) Lymph # (Auto) [place] # (Auto) Eos # (Auto) Baso # (Auto) Total Counted Immature Gran % Nucleated RBC % Immature Gran # Segmented Neutrophils Band Neutrophils Lymphocytes Monocytes Nucleated RBCs # Platelet Estimate Hypochromasia Microcytosis INR PT Patient/Control Mix Circ Anticoag PTT ABG pH 7.522 H ABG pCO2 29.5 L ABG pO2 151.0 H ABG HCO3 26.3 H ABG Total CO2 21.4 L ABG O2 Saturation 99.7 ABG Base Excess 2.1 VBG pH VBG pCO2 VBG pO2 VBG HCO3 VBG Total CO2 VBG O2 Saturation VBG Base Excess Hemoglobin 11.6 L Hematocrit 35.9 L Potassium 5.5 H 5.2 H Glucose 169 H 179 H FiO2 Sodium 139 Chloride 107 Carbon Dioxide 24 Anion Gap 13.5 BUN 15 Creatinine 1.00 GFR Calculation 88 BUN/Creatinine Ratio 15.00 POC Glucose Hemoglobin A1c Calculated Osmolality 281.5 Calcium 8.8 Magnesium 2.3 Total Bilirubin 0.90 Direct Bilirubin AST 59 H ALT 17 Alkaline Phosphatase 45 Total Creatine Kinase 280 D CK-MB (CK-2) 16.9 H D CK and CKMB Interp 6.0 Troponin I 11.200 H D Total Protein 5.6 L Albumin 3.0 L Globulin 2.6 Albumin/Globulin Ratio 1.1 Blood Type Antibody Screen Crossmatch 03/23/17 03/23/17 03/23/17 10:45 11:58 12:30 WBC RBC Hgb Hct MCV MCH MCHC RDW Plt Count MPV Neut % (Auto) Lymph % (Auto) [place] % (Auto) Eos % (Auto) Baso % (Auto) Neut # (Auto) Lymph # (Auto) [place] # (Auto) Eos # (Auto) Baso # (Auto) Total Counted Immature Gran % Nucleated RBC % Immature Gran # Segmented Neutrophils Band Neutrophils Lymphocytes Monocytes Nucleated RBCs # Platelet Estimate Hypochromasia Microcytosis INR PT Patient/Control Mix Circ Anticoag PTT ABG pH 7.484 H ABG pCO2 30.8 L ABG pO2 118.0 H ABG HCO3 25.0 ABG Total CO2 20.3 L ABG O2 Saturation 98.8 ABG Base Excess 0.6 VBG pH VBG pCO2 VBG pO2 VBG HCO3 VBG Total CO2 VBG O2 Saturation VBG Base Excess Hemoglobin 12.4 L Hematocrit 38.1 L Potassium 3.3 L Glucose 180 H FiO2 Sodium Chloride Carbon Dioxide Anion Gap BUN Creatinine GFR Calculation BUN/Creatinine Ratio POC Glucose 171 H Hemoglobin A1c 6.0 Calculated Osmolality Calcium Magnesium Total Bilirubin Direct Bilirubin AST ALT Alkaline Phosphatase Total Creatine Kinase CK-MB (CK-2) CK and CKMB Interp Troponin I Total Protein Albumin Globulin Albumin/Globulin Ratio Blood Type Antibody Screen Crossmatch 03/23/17 03/23/17 03/23/17 13:07 13:49 14:59 WBC RBC Hgb Hct MCV MCH MCHC RDW Plt Count MPV Neut % (Auto) Lymph % (Auto) [place] % (Auto) Eos % (Auto) Baso % (Auto) Neut # (Auto) Lymph # (Auto) [place] # (Auto) Eos # (Auto) Baso # (Auto) Total Counted Immature Gran % Nucleated RBC % Immature Gran # Segmented Neutrophils Band Neutrophils Lymphocytes Monocytes Nucleated RBCs # Platelet Estimate Hypochromasia Microcytosis INR PT Patient/Control Mix Circ Anticoag PTT ABG pH ABG pCO2 ABG pO2 ABG HCO3 ABG Total CO2 ABG O2 Saturation ABG Base Excess VBG pH VBG pCO2 VBG pO2 VBG HCO3 VBG Total CO2 VBG O2 Saturation VBG Base Excess Hemoglobin Hematocrit Potassium Glucose FiO2 Sodium Chloride Carbon Dioxide Anion Gap BUN Creatinine GFR Calculation BUN/Creatinine Ratio POC Glucose 158 H 170 H 134 H Hemoglobin A1c Calculated Osmolality Calcium Magnesium Total Bilirubin Direct Bilirubin AST ALT Alkaline Phosphatase Total Creatine Kinase CK-MB (CK-2) CK and CKMB Interp Troponin I Total Protein Albumin Globulin Albumin/Globulin Ratio Blood Type Antibody Screen Crossmatch 03/23/17 03/23/17 03/23/17 15:00 16:00 16:10 WBC RBC Hgb Hct MCV MCH MCHC RDW Plt Count MPV Neut % (Auto) Lymph % (Auto) [place] % (Auto) Eos % (Auto) Baso % (Auto) Neut # (Auto) Lymph # (Auto) [place] # (Auto) Eos # (Auto) Baso # (Auto) Total Counted Immature Gran % Nucleated RBC % Immature Gran # Segmented Neutrophils Band Neutrophils Lymphocytes Monocytes Nucleated RBCs # Platelet Estimate Hypochromasia Microcytosis INR PT Patient/Control Mix Circ Anticoag PTT ABG pH 7.500 H 7.434 ABG pCO2 31.0 L 35.6 ABG pO2 107.0 H 120.0 H ABG HCO3 25.8 24.4 ABG Total CO2 21.7 L 21.6 L ABG O2 Saturation 98.5 99.2 ABG Base Excess 1.6 0.0 VBG pH VBG pCO2 VBG pO2 VBG HCO3 VBG Total CO2 VBG O2 Saturation VBG Base Excess Hemoglobin 10.6 L 10.2 L Hematocrit 32.8 L 31.5 L Potassium 3.6 4.6 Glucose 136 H 130 H FiO2 Sodium Chloride Carbon Dioxide Anion Gap BUN Creatinine GFR Calculation BUN/Creatinine Ratio POC Glucose 127 H Hemoglobin A1c Calculated Osmolality Calcium Magnesium Total Bilirubin Direct Bilirubin AST ALT Alkaline Phosphatase Total Creatine Kinase CK-MB (CK-2) CK and CKMB Interp Troponin I Total Protein Albumin Globulin Albumin/Globulin Ratio Blood Type Antibody Screen Crossmatch 03/23/17 03/23/17 03/23/17 17:04 18:00 18:03 WBC RBC Hgb Hct MCV MCH MCHC RDW Plt Count MPV Neut % (Auto) Lymph % (Auto) [place] % (Auto) Eos % (Auto) Baso % (Auto) Neut # (Auto) Lymph # (Auto) [place] # (Auto) Eos # (Auto) Baso # (Auto) Total Counted Immature Gran % Nucleated RBC % Immature Gran # Segmented Neutrophils Band Neutrophils Lymphocytes Monocytes Nucleated RBCs # Platelet Estimate Hypochromasia Microcytosis INR PT Patient/Control Mix Circ Anticoag PTT ABG pH 7.430 ABG pCO2 36.0 ABG pO2 128.0 H ABG HCO3 24.4 ABG Total CO2 21.4 L ABG O2 Saturation 98.9 ABG Base Excess -0.1 VBG pH VBG pCO2 VBG pO2 VBG HCO3 VBG Total CO2 VBG O2 Saturation VBG Base Excess Hemoglobin 10.8 L Hematocrit 33.4 L Potassium 4.1 Glucose 121 H FiO2 Sodium Chloride Carbon Dioxide Anion Gap BUN Creatinine GFR Calculation BUN/Creatinine Ratio POC Glucose 123 H Hemoglobin A1c Calculated Osmolality Calcium Magnesium Total Bilirubin Direct Bilirubin AST ALT Alkaline Phosphatase Total Creatine Kinase 324 H CK-MB (CK-2) 13.5 H CK and CKMB Interp 4.2 Troponin I 7.760 H D Total Protein Albumin Globulin Albumin/Globulin Ratio Blood Type Antibody Screen Crossmatch 03/23/17 03/23/17 03/24/17 21:02 22:00 03:00 WBC RBC Hgb Hct MCV MCH MCHC RDW Plt Count MPV Neut % (Auto) Lymph % (Auto) [place] % (Auto) Eos % (Auto) Baso % (Auto) Neut # (Auto) Lymph # (Auto) [place] # (Auto) Eos # (Auto) Baso # (Auto) Total Counted Immature Gran % Nucleated RBC % Immature Gran # Segmented Neutrophils Band Neutrophils Lymphocytes Monocytes Nucleated RBCs # Platelet Estimate Hypochromasia Microcytosis INR PT Patient/Control Mix Circ Anticoag PTT ABG pH 7.430 ABG pCO2 33.3 L ABG pO2 150.8 H ABG HCO3 21.6 ABG Total CO2 22.6 L ABG O2 Saturation 98.5 ABG Base Excess -2.0 VBG pH 7.402 VBG pCO2 41.7 VBG pO2 33.7 VBG HCO3 24.7 VBG Total CO2 23.4 VBG O2 Saturation 61.2 VBG Base Excess 1.1 Hemoglobin 12.4 L Hematocrit 36.0 L Potassium 4.7 Glucose 125 H FiO2 21.00 Sodium Chloride Carbon Dioxide Anion Gap BUN Creatinine GFR Calculation BUN/Creatinine Ratio POC Glucose Hemoglobin A1c Calculated Osmolality Calcium Magnesium Total Bilirubin Direct Bilirubin AST ALT Alkaline Phosphatase Total Creatine Kinase 370 H CK-MB (CK-2) 11.5 H CK and CKMB Interp 3.1 Troponin I 5.290 H D Total Protein Albumin Globulin Albumin/Globulin Ratio Blood Type Antibody Screen Crossmatch 03/24/17 03/24/17 03/24/17 03:00 03:00 03:00 WBC 18.2 H D RBC 3.69 L Hgb 11.6 L Hct 33.4 L MCV 90.5 MCH 31 MCHC 34.7 RDW 13.2 Plt Count 175 MPV 11.0 Neut % (Auto) 89.1 H Lymph % (Auto) 7.5 L [place] % (Auto) 2.7 Eos % (Auto) 0.0 Baso % (Auto) 0.1 Neut # (Auto) 16.2 H Lymph # (Auto) 1.4 [place] # (Auto) 0.5 Eos # (Auto) 0.0 Baso # (Auto) 0.0 Total Counted 100 Immature Gran % 0.6 Nucleated RBC % 0.0 Immature Gran # 0.10 Segmented Neutrophils 82 Band Neutrophils 2 Lymphocytes 12 L Monocytes 4 Nucleated RBCs # 0.00 Platelet Estimate Normal Hypochromasia 1+ Microcytosis INR PT Patient/Control Mix Circ Anticoag PTT ABG pH 7.377 ABG pCO2 38.3 ABG pO2 121.0 H ABG HCO3 22.5 ABG Total CO2 20.4 L ABG O2 Saturation 98.7 ABG Base Excess -2.3 VBG pH VBG pCO2 VBG pO2 VBG HCO3 VBG Total CO2 VBG O2 Saturation VBG Base Excess Hemoglobin 10.7 L Hematocrit 33.0 L Potassium 4.8 4.7 Glucose 141 H 157 H FiO2 Sodium 143 Chloride 110 H Carbon Dioxide 23 Anion Gap 14.8 BUN 25 H D Creatinine 1.50 H GFR Calculation 55 BUN/Creatinine Ratio 16.00 POC Glucose Hemoglobin A1c Calculated Osmolality 290.0 Calcium 8.7 Magnesium 2.0 Total Bilirubin 0.50 Direct Bilirubin 0.10 AST 37 ALT 18 Alkaline Phosphatase 42 L Total Creatine Kinase CK-MB (CK-2) CK and CKMB Interp Troponin I Total Protein 5.9 L Albumin 3.4 Globulin 2.5 Albumin/Globulin Ratio 1.3 Blood Type Antibody Screen Crossmatch 03/24/17 03/24/17 04:00 06:02 WBC RBC Hgb Hct MCV MCH MCHC RDW Plt Count MPV Neut % (Auto) Lymph % (Auto) [place] % (Auto) Eos % (Auto) Baso % (Auto) Neut # (Auto) Lymph # (Auto) [place] # (Auto) Eos # (Auto) Baso # (Auto) Total Counted Immature Gran % Nucleated RBC % Immature Gran # Segmented Neutrophils Band Neutrophils Lymphocytes Monocytes Nucleated RBCs # Platelet Estimate Hypochromasia Microcytosis INR PT Patient/Control Mix Circ Anticoag PTT ABG pH 7.398 7.398 ABG pCO2 36.4 37.6 ABG pO2 121.0 H 102.5 H ABG HCO3 22.8 22.7 ABG Total CO2 20.0 L 23.8 ABG O2 Saturation 98.6 97.1 ABG Base Excess -1.9 -1.8 VBG pH VBG pCO2 VBG pO2 VBG HCO3 VBG Total CO2 VBG O2 Saturation VBG Base Excess Hemoglobin 11.6 L 11.9 L Hematocrit 35.6 L 35.0 L Potassium 4.6 4.8 Glucose 159 H 141 H FiO2 Sodium Chloride Carbon Dioxide Anion Gap BUN Creatinine GFR Calculation BUN/Creatinine Ratio POC Glucose Hemoglobin A1c Calculated Osmolality Calcium Magnesium Total Bilirubin Direct Bilirubin AST ALT Alkaline Phosphatase Total Creatine Kinase CK-MB (CK-2) CK and CKMB Interp Troponin I Total Protein Albumin Globulin Albumin/Globulin Ratio Blood Type Antibody Screen Crossmatch Quality Measures - VTE Contraindication to Pharmacological VTE Prophylaxis: High Risk of Bleeding Specialty Discharge - Follow Up or Referrals
[2017-03-24] MEDS ORDERED: SODIUM CHLOR 0.45% KCL 20 MEQ 20 MEQ/1,000 ML BAG IV SCH (10:15)
[2017-03-24] MEDS ORDERED: MAGNESIUM SULF RIDER 2 GM in PREMIX 1 EACH IV PRN (10:15)
[2017-03-24] MEDS ORDERED: MORPHINE 2 MG/1 ML SYRINGE IV PRN (10:15)
[2017-03-24] MEDS ORDERED: MAGNESIUM SULF RIDER 4 GM in PREMIX 1 EACH IV PRN (10:15)
[2017-03-24] MEDS ORDERED: ONDANSETRON 4 MG/2 ML VIAL IV PRN (10:15)
[2017-03-24] MEDS ORDERED: POTASSIUM CHLORIDE 20 MEQ TABLET PO PRN (10:15)
[2017-03-24] MEDS ORDERED: ACETAMINOPHEN 325 MG TABLET PO PRN (10:15)
[2017-03-24] MEDS ORDERED: MAGNESIUM HYDROXIDE SUSP 30 ML UDCUP PO PRN (10:15)
[2017-03-24] MEDS ORDERED: ALUMINUM/MAGNES/SIMETH MAX STR 30 ML UDCUP PO PRN (10:15)
[2017-03-24] MEDS: ATORVASTATIN 80 MG TABLET PO SCH (11:19)
[2017-03-24] MEDS: DOCUSATE SODIUM 100 MG CAPSULE PO SCH (11:19)
[2017-03-24] MEDS: FERROUS SULFATE 325 MG TABLET PO SCH (11:20)
[2017-03-24] MEDS: PANTOPRAZOLE 40 MG TABLET PO SCH (11:20)
[2017-03-24] MEDS ORDERED: INSULIN REGULAR 100 UNIT/ML SUBCUT SCH (11:30)
--- NOTE | 2017-03-24 12:17 | Anesthesia Post-Op ---
Anesthesia Post OP - Post Ansesthetic Evaluation Patient seen in post op: Yes Resp: within normal limits CV: within normal limits Mental: within normal limits Temp: within normal limits [id number]: within normal limits Nausea and Vomiting: within normal limits Pain: within normal limits
--- NOTE | 2017-03-24 14:33 | Operative Note ---
Date of procedure: 03/23/17 Pre-op diagnosis: Coronary artery disease Post-op diagnosis: same Procedure: [place] of the left great saphenous vein below the knee Assist with coronary artery bypass graft I made an incision from the medial malleolus all the way up to the knee on the medial side. I dissected down on the left great saphenous vein. All the branches were clipped. Hemostasis was achieved. I obtained a graft for 2 grafts. I then moved up to assist with the coronary artery bypass graft. I assisted with the distal anastomoses for the LAD as well as the circumflex artery. Details of the procedure are dictated by Dr. Elliott. 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
--- NOTE | 2017-03-24 17:05 | Sleep Medicine Progress Note ---
Assessment and Plan (1) Unspecified sleep apnea Status: Acute Assessment and plan: We will resume CPAP auto titration for obstructive sleep apnea. Current Visit: Yes (2) Hypertension Status: Chronic Current Visit: Yes (3) Coronary artery disease Status: Chronic Current Visit: Yes Qualifiers: Coronary Disease-Associated Artery/Lesion type: [place] artery [place] vs. transplanted heart: [place] heart Associated angina: with stable angina Qualified Code(s): I25.118 - Atherosclerotic heart disease of [place] coronary artery with other forms of angina pectoris Sleep Medicine Subjective Interval history: Patient is back on the floor after recovering from bypass surgery. He had evidence of mild obstructive sleep apnea on HST. We will resume auto titration CPAP and follow-up results. Exam (Progress Note) - Constitutional Vitals: Period Temp Pulse Resp BP Sys/Ricci Pulse Ox Last 24 Hr 97.2 F-98.5 F 60-84 6-18 110-164/46-80 95-100 Exam: He is alert and responsive in no acute distress. He answers questions appropriately. Chest with good air movement no significant wheeze or rhonchi. Cardiac exam reveals a regular rhythm without murmur or gallop. Abdomen soft nontender extremities without increased edema. Neurologically, grossly intact. Results - Labs CBC & BMP: 03/24/17 03:00 03/24/17 03:00 Lab Results: I have reviewed the past 24 hour labs Specialty Discharge - Follow Up or Referrals
[2017-03-24] MEDS: CARVEDILOL 3.125 MG TABLET PO SCH (17:23)
[2017-03-24] MEDS: METOCLOPRAMIDE 10 MG/2 ML VIAL IV PRN (17:23)
[2017-03-24] MEDS: LISINOPRIL 2.5 MG TABLET PO SCH (20:59)
[2017-03-25 05:25] LABS: Basophils % 0.1 % (0.0-0.8); Hematocrit 29.7 VOL% (42.0-52.0); Hemoglobin 10.3 GM/DL (14.0-18.0); Immature Granulocytes % 0.7 %; Immature Granulocytes Absolute 0.12 #; Lymphocytes # 1.8 10*3/uL (1.4-4.0); Lymphocytes % 10.7 % (21.2-54.2); Mean Corpuscular HGB Conc 34.7 GM/DL (32-36); Mean Corpuscular Hemoglobin 32 PG (27-34); Mean Corpuscular Volume 91.1 FL (87-102); Mean Platelet Volume 10.6 FL (9.6-12.0); Monocytes # 0.7 10*3/uL (0.11-0.8); Neutrophils # 14.1 10*3/uL (1.4-7.4); Neutrophils % 84.5 % (38.7-73.9); Platelet Count 174 T/CUMM (130-400); Red Blood Count 3.26 MC/CUMM (3.8-5.5); Red Cell Distribution Width 13.2 % (9.3-17.3); White Blood Count 16.7 T/CUMM (4-12)
[2017-03-25 05:45] LABS: Hypochromasia 1+; Microcytosis Slight; Platelet Estimate Normal
[2017-03-25] MEDS ORDERED: FUROSEMIDE 40 MG/4 ML VIAL IV ONE ×2 (06:00)
[2017-03-25 06:14] LABS: Alanine Aminotransferase 17 U/L (16-61); Albumin 2.7 G/DL (3.4-5.0); Alkaline Phosphatase 41 U/L (45-117); Aspartate Amino Transferase 29 U/L (0-37); Bilirubin,Indirect 0.4 MG/DL (0.0-1.0); Blood Urea Nitrogen 32 MG/DL (7-18); Calcium 7.8 MG/DL (8.5-10.1); Glucose 109 MG/DL (74-106); Magnesium 2.3 MG/DL (1.8-2.4); Osmolality,Calculated 290.1 MOS/KG (273-304); Potassium 4.6 MMOL/L (3.5-5.1); Sodium 142 MMOL/L (136-145)
--- NOTE | 2017-03-25 06:30 | Cardiothoracic Progress Note ---
Cardiothoracic Subjective Interval history: Patient had a comfortable night. He is breathing comfortably and his vital signs are stable. Laboratory work is essentially within normal limits for postoperative day 2. We will gradually increase his activity as tolerated today according to routine postoperative protocol. Overall his progress appears satisfactory. Exam (Progress Note) - Constitutional Vitals: Period Temp Pulse Resp BP Sys/Ricci Pulse Ox Last 24 Hr 97.2 F-100.5 F 67-93 12-20 90-153/43-80 95-100 Result/EKG - Labs CBC & BMP: 03/25/17 05:15 03/25/17 05:15 Labs: Laboratory Results - last 24 hr 03/23/17 03/23/17 03/24/17 19:21 20:10 00:03 WBC RBC Hgb Hct MCV MCH MCHC RDW Plt Count MPV Neut % (Auto) Lymph % (Auto) [place] % (Auto) Eos % (Auto) Baso % (Auto) Neut # (Auto) Lymph # (Auto) [place] # (Auto) Eos # (Auto) Baso # (Auto) Immature Gran % Nucleated RBC % Immature Gran # Nucleated RBCs # Platelet Estimate Hypochromasia Microcytosis Sodium Potassium Chloride Carbon Dioxide Anion Gap BUN Creatinine GFR Calculation BUN/Creatinine Ratio Glucose POC Glucose 108 H 105 138 H Calculated Osmolality Calcium Magnesium Total Bilirubin Direct Bilirubin Indirect Bilirubin AST ALT Alkaline Phosphatase Total Creatine Kinase CK-MB (CK-2) Troponin I Total Protein Albumin Globulin Albumin/Globulin Ratio 03/24/17 03/24/17 03/24/17 07:41 11:13 16:00 WBC RBC Hgb Hct MCV MCH MCHC RDW Plt Count MPV Neut % (Auto) Lymph % (Auto) [place] % (Auto) Eos % (Auto) Baso % (Auto) Neut # (Auto) Lymph # (Auto) [place] # (Auto) Eos # (Auto) Baso # (Auto) Immature Gran % Nucleated RBC % Immature Gran # Nucleated RBCs # Platelet Estimate Hypochromasia Microcytosis Sodium Potassium Chloride Carbon Dioxide Anion Gap BUN Creatinine GFR Calculation BUN/Creatinine Ratio Glucose POC Glucose 138 H 125 H 148 H Calculated Osmolality Calcium Magnesium Total Bilirubin Direct Bilirubin Indirect Bilirubin AST ALT Alkaline Phosphatase Total Creatine Kinase CK-MB (CK-2) Troponin I Total Protein Albumin Globulin Albumin/Globulin Ratio 03/24/17 03/25/17 03/25/17 20:43 05:10 05:15 WBC 16.7 H RBC 3.26 L Hgb 10.3 L Hct 29.7 L MCV 91.1 MCH 32 MCHC 34.7 RDW 13.2 Plt Count 174 MPV 10.6 Neut % (Auto) 84.5 H Lymph % (Auto) 10.7 L [place] % (Auto) 4.0 Eos % (Auto) 0.0 Baso % (Auto) 0.1 Neut # (Auto) 14.1 H Lymph # (Auto) 1.8 [place] # (Auto) 0.7 Eos # (Auto) 0.0 Baso # (Auto) 0.0 Immature Gran % 0.7 Nucleated RBC % 0.0 Immature Gran # 0.12 Nucleated RBCs # 0.00 Platelet Estimate Normal Hypochromasia 1+ Microcytosis Slight Sodium Potassium Chloride Carbon Dioxide Anion Gap BUN Creatinine GFR Calculation BUN/Creatinine Ratio Glucose POC Glucose 154 H 114 H Calculated Osmolality Calcium Magnesium Total Bilirubin Direct Bilirubin Indirect Bilirubin AST ALT Alkaline Phosphatase Total Creatine Kinase CK-MB (CK-2) Troponin I Total Protein Albumin Globulin Albumin/Globulin Ratio 03/25/17 05:15 WBC RBC Hgb Hct MCV MCH MCHC RDW Plt Count MPV Neut % (Auto) Lymph % (Auto) [place] % (Auto) Eos % (Auto) Baso % (Auto) Neut # (Auto) Lymph # (Auto) [place] # (Auto) Eos # (Auto) Baso # (Auto) Immature Gran % Nucleated RBC % Immature Gran # Nucleated RBCs # Platelet Estimate Hypochromasia Microcytosis Sodium 142 Potassium 4.6 Chloride 107 Carbon Dioxide 26 Anion Gap 13.6 BUN 32 H Creatinine 1.20 GFR Calculation 73 BUN/Creatinine Ratio 26.00 H Glucose 109 H POC Glucose Calculated Osmolality 290.1 Calcium 7.8 L Magnesium 2.3 Total Bilirubin 0.50 Direct Bilirubin 0.10 Indirect Bilirubin 0.4 AST 29 ALT 17 Alkaline Phosphatase 41 L Total Creatine Kinase 436 H CK-MB (CK-2) 3.9 H D Troponin I 3.610 H D Total Protein 5.0 L Albumin 2.7 L Globulin 2.3 Albumin/Globulin Ratio 1.1 Quality Measures - VTE Contraindication to Pharmacological VTE Prophylaxis: High Risk of Bleeding Specialty Discharge - Follow Up or Referrals
--- NOTE | 2017-03-25 08:24 | XRay Report ---
XR chest 1V portable Indication: SOB Comparison: Chest x-ray dated March 23, 2017 Technique: Single frontal view of the chest. Findings: No significant change in cardiomediastinal silhouette status post sternotomy. Interval removal of right-sided [place] catheter. Right-sided central venous catheter tip projects over the atriocaval junction. Interval extubation and removal of mediastinal drains. Mild left basilar atelectasis remains. Visualized osseous and surrounding soft tissue structures appear grossly unchanged. IMPRESSION: No adverse interval change. PROCEDURE INTERPRETED AT [facility] DEPARTMENT OF RADIOLOGY Final Report Signed by: Dr Clayton Huntley
[2017-03-25] MEDS: ATORVASTATIN 80 MG TABLET PO SCH (08:41)
[2017-03-25] MEDS: DOCUSATE SODIUM 100 MG CAPSULE PO SCH (08:41)
[2017-03-25] MEDS: CARVEDILOL 3.125 MG TABLET PO SCH ×2 (08:41→17:38)
[2017-03-25] MEDS: FERROUS SULFATE 325 MG TABLET PO SCH (08:41)
[2017-03-25] MEDS: PANTOPRAZOLE 40 MG TABLET PO SCH (08:41)
[2017-03-25] MEDS: ASPIRIN EC 81 MG TABLET PO SCH (08:41)
[2017-03-25] MEDS: LISINOPRIL 2.5 MG TABLET PO SCH ×2 (08:41→20:14)
[2017-03-25] MEDS: CHLORHEXIDINE 0.12% ORAL RINSE 60 ML BOTTLE SWISH/SPIT SCH ×2 (08:42→20:13)
[2017-03-25] MEDS: oxyCODONE/ACETAMINOPHEN 5-325 MG TABLET PO PRN ×2 (13:06→22:33)
--- NOTE | 2017-03-25 13:23 | Sleep Medicine Progress Note ---
Assessment and Plan (1) Unspecified sleep apnea Status: Acute Assessment and plan: We will schedule patient for outpatient sleep study and follow-up after discharge. He did have evidence of mild obstructive sleep apnea on his HST but has had poor results with CPAP compliance while hospitalized. I will refrain therefore from ordering CPAP at discharge. I think he would benefit from an inlab evaluation and titration to get best results. Thank you for this consult. Current Visit: Yes (2) Hypertension Status: Chronic Current Visit: Yes (3) Coronary artery disease Status: Chronic Current Visit: Yes Qualifiers: Coronary Disease-Associated Artery/Lesion type: [place] artery [place] vs. transplanted heart: [place] heart Associated angina: with stable angina Qualified Code(s): I25.118 - Atherosclerotic heart disease of [place] coronary artery with other forms of angina pectoris Sleep Medicine Subjective Interval history: Patient again did not sleep with CPAP auto last night. I encouraged him to utilize his device. If discharge, will schedule him for follow-up in the sleep clinic. I think he would benefit from an lab sleep evaluation and follow-up of results. Exam (Progress Note) - Constitutional Vitals: Period Temp Pulse Resp BP Sys/Ricci Pulse Ox Last 24 Hr 97.8 F-100.5 F 70-93 14-20 90-153/43-80 94-97 Exam: He is alert and responsive in no acute distress. He answers questions appropriately. Chest with good air movement no significant wheeze or rhonchi. Cardiac exam reveals a regular rhythm without murmur or gallop. Abdomen soft nontender extremities without increased edema. Neurologically, grossly intact. Results - Labs CBC & BMP: 03/25/17 05:15 03/25/17 05:15 Lab Results: I have reviewed the past 24 hour labs Specialty Discharge - Follow Up or Referrals
--- NOTE | 2017-03-25 14:46 | Cardiology Progress Note ---
<Kaity Borrego - Last Filed: 03/25/17 14:33> Assessment and Plan (1) Status post aorto-coronary artery bypass graft Status: Acute Assessment and plan: See plan of care listed below. Current Visit: Yes (2) CAD (coronary artery disease) Status: Chronic Assessment and plan: See plan of care listed below. Current Visit: Yes (3) Acute non-ST segment elevation myocardial infarction Status: Resolved Assessment and plan: See plan of care listed below. Current Visit: Yes (4) Bruit of right carotid artery Status: Acute Assessment and plan: See plan of care listed below. Current Visit: Yes (5) Unspecified sleep apnea Status: Acute Assessment and plan: See plan of care listed below. Current Visit: Yes (6) Dyslipidemia Status: Chronic Assessment and plan: See plan of care listed below. Current Visit: Yes (7) Hypertension Status: Chronic Assessment and plan: See plan of care listed below. 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 Elliott from [facility] March 19, 2017 after moderate to severe left main coronary stenosis and severe stenosis of the circumflex marginal coronary artery. (Heart catheterization report has been requested). Patient underwent coronary artery bypass grafting March 23, 2017 with saphenous vein graft to LAD and SVG to circumflex marginal coronary artery. MARCH 25, 2017: Patient was seen and examined on the telemetry unit. He is postop day #2. Denies chest pain, heaviness or tightness. Vital signs are stable, labs are stable. Troponin decreased to 3.6 this morning. Telemetry is without dysrhythmia. He is recovering well. Medications been reviewed and is on appropriate medication regimen. Continue beta-blockade, NIDIA inhibitor, aspirin and lipid-lowering agent. Encouraged use of incentive spirometry and gradually increase activity as tolerated. Continue routine postoperative protocol. Will discuss with Dr. Rivera and await his additional recommendations. ASSESSMENT/PLAN: 1. CAD, STATUS POST CABG, SVG TO LAD AND CIRCUMFLEX -patient underwent CABG March 23, 2017. He is recovering well. Medications been reviewed and is on appropriate medication regimen. Continue beta-blockade, NIDIA inhibitor, aspirin and lipid-lowering agent. Encouraged use of incentive spirometry and gradually increase activity as tolerated. Continue routine postoperative protocol. 2. HYPERTENSION - Well controlled. Will monitor blood pressure and adjust accordingly this hospitalization. 3. DYSLIPIDEMIA - LDL 105. Continue high intensity statin. 4. NSTEMI - Now status post CABG. Patient's troponin is decreasing, now 3.6. Continue beta-gene, NIDIA inhibitor, aspirin and lipid-lowering agent. 5. RIGHT CAROTID BRUIT - Carotid ultrasound revealed mild amount of plaque with less than 50% diameter stenosis bilaterally. 6. SLEEP APNEA - Dr. Watkins is following. Exam (Progress Note) - Constitutional Vitals: Period Temp Pulse Resp BP Sys/Ricci Pulse Ox Last 24 Hr 97.8 F-100.5 F 70-93 14-20 90-153/43-80 94-97 Exam: General: Appears well with no apparent distress. Pleasant and cooperative. Appears comfortable. HEENT: PERRL, normocephalic, atraumatic. Mucous membranes moist. No jaundice noted. Conjunctiva moist and clear, sclerae anicteric Neck: No JVD/HJR, no thyromegaly or lymphadenopathy noted. Cardiac: Regular rate and rhythm. No murmur rub or gallop. Lungs: Clear to auscultation without accessory muscle use to assist the respiratory pattern. Abdomen: Soft, bowel sounds normoactive. Nontender and nondistended. Extremities: No clubbing, cyanosis noted. Trace edema at vein harvest site. Upper extremity pulses 2+. Lower extremity pulses 2+. Capillary refill less than 3 seconds. Skin: No unusual lesions or rashes. No skin breakdown appreciated. Surgical incisions healing well without dehiscence or drainage. Neuro: Awake, alert and oriented 3. Moves all extremities well without hemiparesis or paralysis. No essential tremor is appreciated. Result/EKG - Labs CBC & BMP: 03/25/17 05:15 03/25/17 05:15 Lab Results: I have reviewed the past 24 hour labs Labs: Laboratory Results - last 24 hr 03/23/17 03/23/17 03/24/17 19:21 20:10 00:03 WBC RBC Hgb Hct MCV MCH MCHC RDW Plt Count MPV Neut % (Auto) Lymph % (Auto) [place] % (Auto) Eos % (Auto) Baso % (Auto) Neut # (Auto) Lymph # (Auto) [place] # (Auto) Eos # (Auto) Baso # (Auto) Immature Gran % Nucleated RBC % Immature Gran # Nucleated RBCs # Platelet Estimate Hypochromasia Microcytosis Sodium Potassium Chloride Carbon Dioxide Anion Gap BUN Creatinine GFR Calculation BUN/Creatinine Ratio Glucose POC Glucose 108 H 105 138 H Calculated Osmolality Calcium Magnesium Total Bilirubin Direct Bilirubin Indirect Bilirubin AST ALT Alkaline Phosphatase Total Creatine Kinase CK-MB (CK-2) Troponin I Total Protein Albumin Globulin Albumin/Globulin Ratio 03/24/17 03/24/17 03/24/17 07:41 16:00 20:43 WBC RBC Hgb Hct MCV MCH MCHC RDW Plt Count MPV Neut % (Auto) Lymph % (Auto) [place] % (Auto) Eos % (Auto) Baso % (Auto) Neut # (Auto) Lymph # (Auto) [place] # (Auto) Eos # (Auto) Baso # (Auto) Immature Gran % Nucleated RBC % Immature Gran # Nucleated RBCs # Platelet Estimate Hypochromasia Microcytosis Sodium Potassium Chloride Carbon Dioxide Anion Gap BUN Creatinine GFR Calculation BUN/Creatinine Ratio Glucose POC Glucose 138 H 148 H 154 H Calculated Osmolality Calcium Magnesium Total Bilirubin Direct Bilirubin Indirect Bilirubin AST ALT Alkaline Phosphatase Total Creatine Kinase CK-MB (CK-2) Troponin I Total Protein Albumin Globulin Albumin/Globulin Ratio 03/25/17 03/25/17 03/25/17 05:10 05:15 05:15 WBC 16.7 H RBC 3.26 L Hgb 10.3 L Hct 29.7 L MCV 91.1 MCH 32 MCHC 34.7 RDW 13.2 Plt Count 174 MPV 10.6 Neut % (Auto) 84.5 H Lymph % (Auto) 10.7 L [place] % (Auto) 4.0 Eos % (Auto) 0.0 Baso % (Auto) 0.1 Neut # (Auto) 14.1 H Lymph # (Auto) 1.8 [place] # (Auto) 0.7 Eos # (Auto) 0.0 Baso # (Auto) 0.0 Immature Gran % 0.7 Nucleated RBC % 0.0 Immature Gran # 0.12 Nucleated RBCs # 0.00 Platelet Estimate Normal Hypochromasia 1+ Microcytosis Slight Sodium 142 Potassium 4.6 Chloride 107 Carbon Dioxide 26 Anion Gap 13.6 BUN 32 H Creatinine 1.20 GFR Calculation 73 BUN/Creatinine Ratio 26.00 H Glucose 109 H POC Glucose 114 H Calculated Osmolality 290.1 Calcium 7.8 L Magnesium 2.3 Total Bilirubin 0.50 Direct Bilirubin 0.10 Indirect Bilirubin 0.4 AST 29 ALT 17 Alkaline Phosphatase 41 L Total Creatine Kinase 436 H CK-MB (CK-2) 3.9 H D Troponin I 3.610 H D Total Protein 5.0 L Albumin 2.7 L Globulin 2.3 Albumin/Globulin Ratio 1.1 03/25/17 03/25/17 08:06 12:11 WBC RBC Hgb Hct MCV MCH MCHC RDW Plt Count MPV Neut % (Auto) Lymph % (Auto) [place] % (Auto) Eos % (Auto) Baso % (Auto) Neut # (Auto) Lymph # (Auto) [place] # (Auto) Eos # (Auto) Baso # (Auto) Immature Gran % Nucleated RBC % Immature Gran # Nucleated RBCs # Platelet Estimate Hypochromasia Microcytosis Sodium Potassium Chloride Carbon Dioxide Anion Gap BUN Creatinine GFR Calculation BUN/Creatinine Ratio Glucose POC Glucose 103 108 H Calculated Osmolality Calcium Magnesium Total Bilirubin Direct Bilirubin Indirect Bilirubin AST ALT Alkaline Phosphatase Total Creatine Kinase CK-MB (CK-2) Troponin I Total Protein Albumin Globulin Albumin/Globulin Ratio Quality Measures - VTE Contraindication to Pharmacological VTE Prophylaxis: High Risk of Bleeding Specialty Discharge - Follow Up or Referrals <Sanket Rivera - Last Filed: 03/25/17 17:56> Assessment and Plan (1) Acute non-ST segment elevation myocardial infarction Status: Resolved Current Visit: Yes (2) Coronary artery disease Status: Chronic Current Visit: Yes Qualifiers: Coronary Disease-Associated Artery/Lesion type: [place] artery [place] vs. transplanted heart: [place] heart Associated angina: with stable angina Qualified Code(s): I25.118 - Atherosclerotic heart disease of [place] coronary artery with other forms of angina pectoris (3) Dyslipidemia Status: Chronic Current Visit: Yes (4) Hypertension Status: Chronic Current Visit: Yes Exam (Progress Note) - Constitutional Vitals: Period Temp Pulse Resp BP Sys/Ricci Pulse Ox Last 24 Hr 97.9 F-100.5 F 70-93 14-20 90-119/43-65 92-97 Result/EKG - Labs CBC & BMP: 03/25/17 05:15 03/25/17 05:15 Labs: Laboratory Results - last 24 hr 03/23/17 03/23/17 03/24/17 19:21 20:10 00:03 WBC RBC Hgb Hct MCV MCH MCHC RDW Plt Count MPV Neut % (Auto) Lymph % (Auto) [place] % (Auto) Eos % (Auto) Baso % (Auto) Neut # (Auto) Lymph # (Auto) [place] # (Auto) Eos # (Auto) Baso # (Auto) Immature Gran % Nucleated RBC % Immature Gran # Nucleated RBCs # Platelet Estimate Hypochromasia Microcytosis Sodium Potassium Chloride Carbon Dioxide Anion Gap BUN Creatinine GFR Calculation BUN/Creatinine Ratio Glucose POC Glucose 108 H 105 138 H Calculated Osmolality Calcium Magnesium Total Bilirubin Direct Bilirubin Indirect Bilirubin AST ALT Alkaline Phosphatase Total Creatine Kinase CK-MB (CK-2) Troponin I Total Protein Albumin Globulin Albumin/Globulin Ratio 03/24/17 03/24/17 03/25/17 07:41 20:43 05:10 WBC RBC Hgb Hct MCV MCH MCHC RDW Plt Count MPV Neut % (Auto) Lymph % (Auto) [place] % (Auto) Eos % (Auto) Baso % (Auto) Neut # (Auto) Lymph # (Auto) [place] # (Auto) Eos # (Auto) Baso # (Auto) Immature Gran % Nucleated RBC % Immature Gran # Nucleated RBCs # Platelet Estimate Hypochromasia Microcytosis Sodium Potassium Chloride Carbon Dioxide Anion Gap BUN Creatinine GFR Calculation BUN/Creatinine Ratio Glucose POC Glucose 138 H 154 H 114 H Calculated Osmolality Calcium Magnesium Total Bilirubin Direct Bilirubin Indirect Bilirubin AST ALT Alkaline Phosphatase Total Creatine Kinase CK-MB (CK-2) Troponin I Total Protein Albumin Globulin Albumin/Globulin Ratio 03/25/17 03/25/17 03/25/17 05:15 05:15 08:06 WBC 16.7 H RBC 3.26 L Hgb 10.3 L Hct 29.7 L MCV 91.1 MCH 32 MCHC 34.7 RDW 13.2 Plt Count 174 MPV 10.6 Neut % (Auto) 84.5 H Lymph % (Auto) 10.7 L [place] % (Auto) 4.0 Eos % (Auto) 0.0 Baso % (Auto) 0.1 Neut # (Auto) 14.1 H Lymph # (Auto) 1.8 [place] # (Auto) 0.7 Eos # (Auto) 0.0 Baso # (Auto) 0.0 Immature Gran % 0.7 Nucleated RBC % 0.0 Immature Gran # 0.12 Nucleated RBCs # 0.00 Platelet Estimate Normal Hypochromasia 1+ Microcytosis Slight Sodium 142 Potassium 4.6 Chloride 107 Carbon Dioxide 26 Anion Gap 13.6 BUN 32 H Creatinine 1.20 GFR Calculation 73 BUN/Creatinine Ratio 26.00 H Glucose 109 H POC Glucose 103 Calculated Osmolality 290.1 Calcium 7.8 L Magnesium 2.3 Total Bilirubin 0.50 Direct Bilirubin 0.10 Indirect Bilirubin 0.4 AST 29 ALT 17 Alkaline Phosphatase 41 L Total Creatine Kinase 436 H CK-MB (CK-2) 3.9 H D Troponin I 3.610 H D Total Protein 5.0 L Albumin 2.7 L Globulin 2.3 Albumin/Globulin Ratio 1.1 03/25/17 03/25/17 12:11 16:31 WBC RBC Hgb Hct MCV MCH MCHC RDW Plt Count MPV Neut % (Auto) Lymph % (Auto) [place] % (Auto) Eos % (Auto) Baso % (Auto) Neut # (Auto) Lymph # (Auto) [place] # (Auto) Eos # (Auto) Baso # (Auto) Immature Gran % Nucleated RBC % Immature Gran # Nucleated RBCs # Platelet Estimate Hypochromasia Microcytosis Sodium Potassium Chloride Carbon Dioxide Anion Gap BUN Creatinine GFR Calculation BUN/Creatinine Ratio Glucose POC Glucose 108 H 161 H Calculated Osmolality Calcium Magnesium Total Bilirubin Direct Bilirubin Indirect Bilirubin AST ALT Alkaline Phosphatase Total Creatine Kinase CK-MB (CK-2) Troponin I Total Protein Albumin Globulin Albumin/Globulin Ratio
--- NOTE | 2017-03-25 16:11 | Hospitalist Progress Note ---
Assessment and Plan (1) Acute non-ST segment elevation myocardial infarction Status: Resolved Assessment and plan: s/p cabg times 2 Current Visit: Yes (2) Unspecified sleep apnea Status: Acute Assessment and plan: will need outpatient sleep study Current Visit: Yes (3) Glucose intolerance (impaired glucose tolerance) Status: Acute Assessment and plan: Blood sugars well controlled without intervention, hgb a1c of 6, I will sign off Current Visit: Yes Hospitalist: Subjective Interval history: Blood sugars well controlled. Patient was doing fine today Exam - Constitutional Vitals: Period Temp Pulse Resp BP Sys/Ricci Pulse Ox Last 24 Hr 97.9 F-100.5 F 70-93 14-20 90-119/43-65 94-97 Exam: Heart Rate-[RRR] Lungs-[Clear GI-[good bs soft, NT] Results - Labs CBC & BMP: 03/25/17 05:15 03/25/17 05:15 Lab Results: I have reviewed the past 24 hour labs Quality Measures - VTE Contraindication to Pharmacological VTE Prophylaxis: High Risk of Bleeding Specialty Discharge - Follow Up or Referrals
[2017-03-26] MEDS: METOCLOPRAMIDE 10 MG/2 ML VIAL IV PRN (03:08)
[2017-03-26 05:08] LABS: Basophils % 0.2 % (0.0-0.8); Eosinophils # 0.1 10*3/uL (0.0-0.87); Eosinophils % 1.1 % (0.00-10.9); Hematocrit 33.2 VOL% (42.0-52.0); Hemoglobin 11.4 GM/DL (14.0-18.0); Immature Granulocytes % 0.5 %; Immature Granulocytes Absolute 0.06 #; Lymphocytes # 3.4 10*3/uL (1.4-4.0); Lymphocytes % 26.5 % (21.2-54.2); Mean Corpuscular HGB Conc 34.3 GM/DL (32-36); Mean Corpuscular Hemoglobin 31 PG (27-34); Mean Corpuscular Volume 91.5 FL (87-102); Mean Platelet Volume 10.7 FL (9.6-12.0); Monocytes # 0.8 10*3/uL (0.11-0.8); Monocytes % 6.2 % (1.7-12.7); Neutrophils # 8.3 10*3/uL (1.4-7.4); Neutrophils % 65.5 % (38.7-73.9); Platelet Count 223 T/CUMM (130-400); Red Blood Count 3.63 MC/CUMM (3.8-5.5); Red Cell Distribution Width 13.5 % (9.3-17.3); White Blood Count 12.7 T/CUMM (4-12)
[2017-03-26 05:31] LABS: Alanine Aminotransferase 21 U/L (16-61); Albumin 2.9 G/DL (3.4-5.0); Alkaline Phosphatase 50 U/L (45-117); Aspartate Amino Transferase 25 U/L (0-37); Bilirubin,Indirect 0.3 MG/DL (0.0-1.0); Blood Urea Nitrogen 28 MG/DL (7-18); Calcium 7.8 MG/DL (8.5-10.1); Glucose 88 MG/DL (74-106); Magnesium 2.3 MG/DL (1.8-2.4); Sodium 143 MMOL/L (136-145); Total Protein 5.4 G/DL (6.4-8.3)
[2017-03-26] MEDS: FERROUS SULFATE 325 MG TABLET PO SCH (08:49)
[2017-03-26] MEDS: CARVEDILOL 3.125 MG TABLET PO SCH ×2 (08:49→17:10)
[2017-03-26] MEDS: CHLORHEXIDINE 0.12% ORAL RINSE 60 ML BOTTLE SWISH/SPIT SCH ×2 (08:49→20:26)
[2017-03-26] MEDS: LISINOPRIL 2.5 MG TABLET PO SCH ×2 (08:49→20:26)
[2017-03-26] MEDS: PANTOPRAZOLE 40 MG TABLET PO SCH (08:49)
[2017-03-26] MEDS: DOCUSATE SODIUM 100 MG CAPSULE PO SCH (08:49)
[2017-03-26] MEDS: ATORVASTATIN 80 MG TABLET PO SCH (08:49)
[2017-03-26] MEDS: ASPIRIN EC 81 MG TABLET PO SCH (08:49)
--- NOTE | 2017-03-26 09:02 | Cardiothoracic Progress Note ---
Cardiothoracic Subjective Interval history: Patient is doing well. Vital signs are stable and is breathing comfortably. We will gradually try to increase his activity according to routine postoperative protocol. Overall his progress is satisfactory. Exam (Progress Note) - Constitutional Vitals: Period Temp Pulse Resp BP Sys/Ricci Pulse Ox Last 24 Hr 97.1 F-99.7 F 81-87 16-20 112-144/56-79 91-96 Result/EKG - Labs CBC & BMP: 03/26/17 04:07 03/26/17 04:07 Labs: Laboratory Results - last 24 hr 03/22/17 03/25/17 03/25/17 04:42 12:11 16:31 WBC RBC Hgb Hct MCV MCH MCHC RDW Plt Count MPV Neut % (Auto) Lymph % (Auto) [place] % (Auto) Eos % (Auto) Baso % (Auto) Neut # (Auto) Lymph # (Auto) [place] # (Auto) Eos # (Auto) Baso # (Auto) Immature Gran % Nucleated RBC % Immature Gran # Nucleated RBCs # Sodium Potassium Chloride Carbon Dioxide Anion Gap BUN Creatinine GFR Calculation BUN/Creatinine Ratio Glucose POC Glucose 108 H 161 H Calculated Osmolality Calcium Magnesium Total Bilirubin Direct Bilirubin Indirect Bilirubin AST ALT Alkaline Phosphatase Total Creatine Kinase CK-MB (CK-2) Troponin I Total Protein Albumin Globulin Albumin/Globulin Ratio Crossmatch See Detail 03/25/17 03/26/17 03/26/17 19:30 04:07 04:07 WBC 12.7 H RBC 3.63 L Hgb 11.4 L Hct 33.2 L MCV 91.5 MCH 31 MCHC 34.3 RDW 13.5 Plt Count 223 D MPV 10.7 Neut % (Auto) 65.5 Lymph % (Auto) 26.5 [place] % (Auto) 6.2 Eos % (Auto) 1.1 Baso % (Auto) 0.2 Neut # (Auto) 8.3 H Lymph # (Auto) 3.4 [place] # (Auto) 0.8 Eos # (Auto) 0.1 Baso # (Auto) 0.0 Immature Gran % 0.5 Nucleated RBC % 0.0 Immature Gran # 0.06 Nucleated RBCs # 0.00 Sodium 143 Potassium 4.0 Chloride 108 H Carbon Dioxide 29 Anion Gap 10.0 BUN 28 H Creatinine 1.20 GFR Calculation 72 BUN/Creatinine Ratio 23.00 H Glucose 88 POC Glucose 153 H Calculated Osmolality 289.0 Calcium 7.8 L Magnesium 2.3 Total Bilirubin 0.40 Direct Bilirubin 0.10 Indirect Bilirubin 0.3 AST 25 ALT 21 Alkaline Phosphatase 50 Total Creatine Kinase 328 H D CK-MB (CK-2) < 1.0 Troponin I 2.770 H D Total Protein 5.4 L Albumin 2.9 L Globulin 2.5 Albumin/Globulin Ratio 1.1 Crossmatch 03/26/17 07:09 WBC RBC Hgb Hct MCV MCH MCHC RDW Plt Count MPV Neut % (Auto) Lymph % (Auto) [place] % (Auto) Eos % (Auto) Baso % (Auto) Neut # (Auto) Lymph # (Auto) [place] # (Auto) Eos # (Auto) Baso # (Auto) Immature Gran % Nucleated RBC % Immature Gran # Nucleated RBCs # Sodium Potassium Chloride Carbon Dioxide Anion Gap BUN Creatinine GFR Calculation BUN/Creatinine Ratio Glucose POC Glucose 96 Calculated Osmolality Calcium Magnesium Total Bilirubin Direct Bilirubin Indirect Bilirubin AST ALT Alkaline Phosphatase Total Creatine Kinase CK-MB (CK-2) Troponin I Total Protein Albumin Globulin Albumin/Globulin Ratio Crossmatch Quality Measures - VTE Contraindication to Pharmacological VTE Prophylaxis: High Risk of Bleeding Specialty Discharge - Follow Up or Referrals
--- NOTE | 2017-03-26 09:30 | XRay Report ---
XR chest 1V portable Indication: Shortness of breath Comparison: 25 March 2017 Findings: The heart and mediastinum are stable in size and configuration. Right internal jugular catheters unchanged in position. The pulmonary vascularity is normal in caliber. No lung infiltrates, effusions, pneumothorax or other abnormality is demonstrated. Impression: No acute cardiopulmonary disease. PROCEDURE INTERPRETED AT [facility] DEPARTMENT OF RADIOLOGY Final Report Signed by: Dr. Bernardo Garcia
--- NOTE | 2017-03-26 11:39 | Cardiology Progress Note ---
Assessment and Plan (1) Acute non-ST segment elevation myocardial infarction Status: Resolved Assessment and plan: Initial assessment and plan March 22, 2017: 1. I have examined and interviewed Mr. Nixon. He has multivessel coronary artery disease status post non-STEMI scheduled for CABG in the morning by Dr. Elliott. 2. He is asymptomatic and hemodynamically stable on appropriate medications. 3. No new recommendations Assessment and plan March 23, 2017: 1. Postop day 0 from two-vessel CABG doing well 2. Hemodynamic is stable with reduced cardiac index as expected about 1.6 L/min /m 3. Currently on nitroglycerin infusion as well as insulin infusion with as needed albumin 4. Maintain normal sinus rhythm 5. Consider low-dose beta-gene when able to tolerate March 24, 2017: 1. Day 1 status post two-vessel CABG doing very well, extubated sitting up in chair eating breakfast 2. Maintain normal sinus rhythm with good urine output prior to Kohler being pulled this morning 3. Cardiac output was nearly 5 L/min before he was disconnected this morning 4. Got IV diuresis during the night, with prerenal azotemia and creatinine up to 1.5; would minimize diuretics for now and change lisinopril HCTZ to very low- dose lisinopril 2.5 mg twice daily 5. At high intensity statin with Lipitor 80 daily March 26, 2017: 1. Doing well POD #3 from CABG status post CA doing very well. 2. Hemodynamically stable 3. On appropriate medications 4. Gradually increase activity level; I emphasize this again today but to avoid falls. Current Visit: Yes (2) Coronary artery disease Status: Chronic Current Visit: Yes Qualifiers: Coronary Disease-Associated Artery/Lesion type: [place] artery [place] vs. transplanted heart: [place] heart Associated angina: with stable angina Qualified Code(s): I25.118 - Atherosclerotic heart disease of [place] coronary artery with other forms of angina pectoris (3) Dyslipidemia Status: Chronic Current Visit: Yes (4) Hypertension Status: Chronic Current Visit: Yes Cardiology - PN: Subj Interval history: Mr. Shea is doing very well although he has not gotten up a lot, and not at all this morning. He is not having shortness of breath or chest discomfort. He had palpitations or swelling. Exam (Progress Note) - Constitutional Vitals: Period Temp Pulse Resp BP Sys/Ricci Pulse Ox Last 24 Hr 97.1 F-99.7 F 81-87 16-20 112-144/56-79 91-96 General appearance: normal weight, no acute distress - Head Head exam: Present: normal inspection, normocephalic, atraumatic - Neck Neck exam: Present: normal inspection - Respiratory Respiratory exam: Present: clear to auscultation bilaterally. Absent: rales, rhonchi, stridor, wheezes - Cardiovascular Cardiovascular exam: Present: regular rate and rhythm. Absent: diastolic murmur , rubs - GI/Abdominal GI/Abdominal exam: Present: soft. Absent: tenderness - Extremities Exam Extremities exam: Present: edema (Trace to 1+ lower extremity edema is vein graft harvest lower extremity) Result/EKG - Labs CBC & BMP: 03/26/17 04:07 03/26/17 04:07 Labs: Laboratory Results - last 24 hr 03/22/17 03/25/17 03/25/17 04:42 12:11 16:31 WBC RBC Hgb Hct MCV MCH MCHC RDW Plt Count MPV Neut % (Auto) Lymph % (Auto) [place] % (Auto) Eos % (Auto) Baso % (Auto) Neut # (Auto) Lymph # (Auto) [place] # (Auto) Eos # (Auto) Baso # (Auto) Immature Gran % Nucleated RBC % Immature Gran # Nucleated RBCs # Sodium Potassium Chloride Carbon Dioxide Anion Gap BUN Creatinine GFR Calculation BUN/Creatinine Ratio Glucose POC Glucose 108 H 161 H Calculated Osmolality Calcium Magnesium Total Bilirubin Direct Bilirubin Indirect Bilirubin AST ALT Alkaline Phosphatase Total Creatine Kinase CK-MB (CK-2) Troponin I Total Protein Albumin Globulin Albumin/Globulin Ratio Crossmatch See Detail 03/25/17 03/26/17 03/26/17 19:30 04:07 04:07 WBC 12.7 H RBC 3.63 L Hgb 11.4 L Hct 33.2 L MCV 91.5 MCH 31 MCHC 34.3 RDW 13.5 Plt Count 223 D MPV 10.7 Neut % (Auto) 65.5 Lymph % (Auto) 26.5 [place] % (Auto) 6.2 Eos % (Auto) 1.1 Baso % (Auto) 0.2 Neut # (Auto) 8.3 H Lymph # (Auto) 3.4 [place] # (Auto) 0.8 Eos # (Auto) 0.1 Baso # (Auto) 0.0 Immature Gran % 0.5 Nucleated RBC % 0.0 Immature Gran # 0.06 Nucleated RBCs # 0.00 Sodium 143 Potassium 4.0 Chloride 108 H Carbon Dioxide 29 Anion Gap 10.0 BUN 28 H Creatinine 1.20 GFR Calculation 72 BUN/Creatinine Ratio 23.00 H Glucose 88 POC Glucose 153 H Calculated Osmolality 289.0 Calcium 7.8 L Magnesium 2.3 Total Bilirubin 0.40 Direct Bilirubin 0.10 Indirect Bilirubin 0.3 AST 25 ALT 21 Alkaline Phosphatase 50 Total Creatine Kinase 328 H D CK-MB (CK-2) < 1.0 Troponin I 2.770 H D Total Protein 5.4 L Albumin 2.9 L Globulin 2.5 Albumin/Globulin Ratio 1.1 Crossmatch 03/26/17 07:09 WBC RBC Hgb Hct MCV MCH MCHC RDW Plt Count MPV Neut % (Auto) Lymph % (Auto) [place] % (Auto) Eos % (Auto) Baso % (Auto) Neut # (Auto) Lymph # (Auto) [place] # (Auto) Eos # (Auto) Baso # (Auto) Immature Gran % Nucleated RBC % Immature Gran # Nucleated RBCs # Sodium Potassium Chloride Carbon Dioxide Anion Gap BUN Creatinine GFR Calculation BUN/Creatinine Ratio Glucose POC Glucose 96 Calculated Osmolality Calcium Magnesium Total Bilirubin Direct Bilirubin Indirect Bilirubin AST ALT Alkaline Phosphatase Total Creatine Kinase CK-MB (CK-2) Troponin I Total Protein Albumin Globulin Albumin/Globulin Ratio Crossmatch Quality Measures - VTE Contraindication to Pharmacological VTE Prophylaxis: High Risk of Bleeding Specialty Discharge - Follow Up or Referrals
[2017-03-26] MEDS: oxyCODONE/ACETAMINOPHEN 5-325 MG TABLET PO PRN ×2 (17:11→22:29)
[2017-03-26] MEDS: ZALEPLON 5 MG CAPSULE PO PRN (20:27)
[2017-03-27 05:42] LABS: Calcium 7.9 MG/DL (8.5-10.1); Magnesium 2.5 MG/DL (1.8-2.4)
--- NOTE | 2017-03-27 08:05 | Cardiothoracic Progress Note ---
Cardiothoracic Subjective Interval history: Patient is feeling well today. Vital signs are stable and is breathing comfortably. His wounds are clean and dry. We are gradually increasing his activity according to routine postoperative protocol. Overall his progress is satisfactory. Exam (Progress Note) - Constitutional Vitals: Period Temp Pulse Resp BP Sys/Ricci Pulse Ox Last 24 Hr 98.7 F-99.5 F 71-90 18-28 111-139/64-80 92-96 Result/EKG - Labs CBC & BMP: 03/26/17 04:07 03/27/17 04:21 Labs: Laboratory Results - last 24 hr 03/26/17 03/26/17 03/26/17 11:54 16:19 19:11 Sodium Potassium Chloride Carbon Dioxide Anion Gap BUN Creatinine GFR Calculation BUN/Creatinine Ratio Glucose POC Glucose 83 133 H 144 H Calculated Osmolality Calcium Magnesium 03/27/17 03/27/17 04:21 07:29 Sodium 143 Potassium 4.0 Chloride 108 H Carbon Dioxide 28 Anion Gap 11.0 BUN 23 H Creatinine 1.00 GFR Calculation 89 BUN/Creatinine Ratio 23.00 H Glucose 98 POC Glucose 104 Calculated Osmolality 288.0 Calcium 7.9 L Magnesium 2.5 H Quality Measures - VTE Contraindication to Pharmacological VTE Prophylaxis: High Risk of Bleeding Specialty Discharge - Follow Up or Referrals
[2017-03-27] MEDS: ATORVASTATIN 80 MG TABLET PO SCH (08:56)
[2017-03-27] MEDS: FERROUS SULFATE 325 MG TABLET PO SCH (08:56)
[2017-03-27] MEDS: PANTOPRAZOLE 40 MG TABLET PO SCH (08:56)
[2017-03-27] MEDS: ASPIRIN EC 81 MG TABLET PO SCH (08:56)
[2017-03-27] MEDS: LISINOPRIL 2.5 MG TABLET PO SCH ×2 (08:56→21:44)
[2017-03-27] MEDS: CARVEDILOL 3.125 MG TABLET PO SCH ×2 (08:56→17:45)
[2017-03-27] MEDS: DOCUSATE SODIUM 100 MG CAPSULE PO SCH (08:56)
[2017-03-27] MEDS: CHLORHEXIDINE 0.12% ORAL RINSE 60 ML BOTTLE SWISH/SPIT SCH ×2 (08:57→21:46)
--- NOTE | 2017-03-27 08:59 | Cardiology Progress Note ---
Assessment and Plan (1) Acute non-ST segment elevation myocardial infarction Status: Resolved Assessment and plan: Initial assessment and plan March 22, 2017: 1. I have examined and interviewed Mr. Nixon. He has multivessel coronary artery disease status post non-STEMI scheduled for CABG in the morning by Dr. Elliott. 2. He is asymptomatic and hemodynamically stable on appropriate medications. 3. No new recommendations Assessment and plan March 23, 2017: 1. Postop day 0 from two-vessel CABG doing well 2. Hemodynamic is stable with reduced cardiac index as expected about 1.6 L/min /m 3. Currently on nitroglycerin infusion as well as insulin infusion with as needed albumin 4. Maintain normal sinus rhythm 5. Consider low-dose beta-gene when able to tolerate March 24, 2017: 1. Day 1 status post two-vessel CABG doing very well, extubated sitting up in chair eating breakfast 2. Maintain normal sinus rhythm with good urine output prior to [place] being pulled this morning 3. Cardiac output was nearly 5 L/min before he was disconnected this morning 4. Got IV diuresis during the night, with prerenal azotemia and creatinine up to 1.5; would minimize diuretics for now and change lisinopril HCTZ to very low- dose lisinopril 2.5 mg twice daily 5. At high intensity statin with Lipitor 80 daily March 26, 2017: 1. Doing well POD #3 from CABG status post OR doing very well. 2. Hemodynamically stable 3. On appropriate medications 4. Gradually increase activity level; I emphasize this again today but to avoid falls. March 27, 2017: 1. Doing very well POD #4 from CABG status post OR 2. Hemodynamically stable, ambulating on the schulte without difficulty 3. He is on appropriate medications 4. No new recommendations Current Visit: Yes (2) Coronary artery disease Status: Chronic Current Visit: Yes Qualifiers: Coronary Disease-Associated Artery/Lesion type: [place] artery [place] vs. transplanted heart: [place] heart Associated angina: with stable angina Qualified Code(s): I25.118 - Atherosclerotic heart disease of [place] coronary artery with other forms of angina pectoris (3) Dyslipidemia Status: Chronic Current Visit: Yes (4) Hypertension Status: Chronic Current Visit: Yes Cardiology - PN: Subj Interval history: Mr. Nixon has no complaints. Has been rambling on the floor with a walker although he does not think he needs it. He has not had any shortness of breath. He is eating breakfast with no distress. He has had no dysrhythmia other than PVCs. Exam (Progress Note) - Constitutional Vitals: Period Temp Pulse Resp BP Sys/Ricci Pulse Ox Last 24 Hr 98.7 F-99.5 F 71-90 18-28 111-139/64-80 92-96 General appearance: normal weight, no acute distress - Head Head exam: Present: normal inspection, normocephalic, atraumatic - Respiratory Respiratory exam: Present: clear to auscultation bilaterally. Absent: rales, rhonchi, stridor - Cardiovascular Cardiovascular exam: Present: regular rate and rhythm. Absent: diastolic murmur , rubs - GI/Abdominal GI/Abdominal exam: Present: soft. Absent: tenderness - Extremities Exam Extremities exam: Absent: edema Result/EKG - Labs CBC & BMP: 03/26/17 04:07 03/27/17 04:21 Labs: Laboratory Results - last 24 hr 03/26/17 03/26/17 03/26/17 11:54 16:19 19:11 Sodium Potassium Chloride Carbon Dioxide Anion Gap BUN Creatinine GFR Calculation BUN/Creatinine Ratio Glucose POC Glucose 83 133 H 144 H Calculated Osmolality Calcium Magnesium 03/27/17 03/27/17 04:21 07:29 Sodium 143 Potassium 4.0 Chloride 108 H Carbon Dioxide 28 Anion Gap 11.0 BUN 23 H Creatinine 1.00 GFR Calculation 89 BUN/Creatinine Ratio 23.00 H Glucose 98 POC Glucose 104 Calculated Osmolality 288.0 Calcium 7.9 L Magnesium 2.5 H Quality Measures - VTE Contraindication to Pharmacological VTE Prophylaxis: High Risk of Bleeding Specialty Discharge - Follow Up or Referrals
[2017-03-28 04:54] LABS: Basophils % 0.3 % (0.0-0.8); Eosinophils # 0.3 10*3/uL (0.0-0.87); Eosinophils % 3.3 % (0.00-10.9); Hematocrit 34.7 VOL% (42.0-52.0); Hemoglobin 11.8 GM/DL (14.0-18.0); Immature Granulocytes % 0.7 %; Immature Granulocytes Absolute 0.07 #; Lymphocytes # 3.1 10*3/uL (1.4-4.0); Lymphocytes % 31.9 % (21.2-54.2); Mean Corpuscular Hemoglobin 31 PG (27-34); Mean Corpuscular Volume 90.8 FL (87-102); Mean Platelet Volume 10.4 FL (9.6-12.0); Monocytes # 0.7 10*3/uL (0.11-0.8); Neutrophils # 5.5 10*3/uL (1.4-7.4); Neutrophils % 56.8 % (38.7-73.9); Platelet Count 279 T/CUMM (130-400); Red Blood Count 3.82 MC/CUMM (3.8-5.5); Red Cell Distribution Width 13.2 % (9.3-17.3); White Blood Count 9.8 T/CUMM (4-12)
[2017-03-28 05:18] LABS: Calcium 8.1 MG/DL (8.5-10.1); Magnesium 2.4 MG/DL (1.8-2.4); Osmolality,Calculated 286.1 MOS/KG (273-304)
[2017-03-28 05:24] LABS: Alanine Aminotransferase 14 U/L (16-61); Albumin 2.6 G/DL (3.4-5.0); Alkaline Phosphatase 48 U/L (45-117); Aspartate Amino Transferase 17 U/L (0-37); Bilirubin,Indirect 0.9 MG/DL (0.0-1.0); Blood Urea Nitrogen 24 MG/DL (7-18); Calcium 8.2 MG/DL (8.5-10.1); Glucose 102 MG/DL (74-106); Magnesium 2.4 MG/DL (1.8-2.4); Osmolality,Calculated 286.1 MOS/KG (273-304); Potassium 4.1 MMOL/L (3.5-5.1); Sodium 142 MMOL/L (136-145); Total Protein 5.6 G/DL (6.4-8.3)
[2017-03-28 05:25] LABS: Troponin I Only 0.737 NG/ML (0.00-0.045)
--- NOTE | 2017-03-28 08:08 | XRay Report ---
XR chest 2V Indication: Shortness of breath Comparison: 26 March 2017 Findings: The heart and mediastinum are stable in size and configuration with cardiac surgery changes. Right internal jugular catheters present with tip overlying the right atrium. The pulmonary vascularity is normal in caliber. Lung volumes are increased with prominent bronchial markings. No lung infiltrates, effusions, pneumothorax or other abnormality is demonstrated. Impression: Chronic lung changes. No acute process or significant change. PROCEDURE INTERPRETED AT [facility] DEPARTMENT OF RADIOLOGY Final Report Signed by: Dr. Bernardo Garcia
--- NOTE | 2017-03-28 09:01 | Cardiothoracic Progress Note ---
Cardiothoracic Subjective Interval history: Patient is recovering well. Vital signs are stable and is breathing comfortably. He is gradually increasing his activity according to routine postoperative protocol. Overall his progress is satisfactory. Exam (Progress Note) - Constitutional Vitals: Period Temp Pulse Resp BP Sys/Ricci Pulse Ox Last 24 Hr 98.3 F-99.7 F 60-89 17-20 116-136/62-74 92-97 Result/EKG - Labs CBC & BMP: 03/28/17 04:29 03/28/17 04:29 Labs: Laboratory Results - last 24 hr 03/27/17 03/27/17 03/27/17 11:47 15:50 20:33 WBC RBC Hgb Hct MCV MCH MCHC RDW Plt Count MPV Neut % (Auto) Lymph % (Auto) [place] % (Auto) Eos % (Auto) Baso % (Auto) Neut # (Auto) Lymph # (Auto) [place] # (Auto) Eos # (Auto) Baso # (Auto) Immature Gran % Nucleated RBC % Immature Gran # Nucleated RBCs # Sodium Potassium Chloride Carbon Dioxide Anion Gap BUN Creatinine GFR Calculation BUN/Creatinine Ratio Glucose POC Glucose 117 H 127 H 103 Calculated Osmolality Calcium Magnesium Total Bilirubin Direct Bilirubin Indirect Bilirubin AST ALT Alkaline Phosphatase Total Creatine Kinase CK-MB (CK-2) Troponin I Total Protein Albumin Globulin Albumin/Globulin Ratio 03/28/17 03/28/17 03/28/17 04:29 04:29 04:29 WBC 9.8 RBC 3.82 Hgb 11.8 L Hct 34.7 L MCV 90.8 MCH 31 MCHC 34.0 RDW 13.2 Plt Count 279 D MPV 10.4 Neut % (Auto) 56.8 Lymph % (Auto) 31.9 [place] % (Auto) 7.0 Eos % (Auto) 3.3 Baso % (Auto) 0.3 Neut # (Auto) 5.5 Lymph # (Auto) 3.1 [place] # (Auto) 0.7 Eos # (Auto) 0.3 Baso # (Auto) 0.0 Immature Gran % 0.7 Nucleated RBC % 0.0 Immature Gran # 0.07 Nucleated RBCs # 0.00 Sodium 142 142 Potassium 4.1 4.0 Chloride 108 H 108 H Carbon Dioxide 25 25 Anion Gap 13.1 13.0 BUN 24 H 24 H Creatinine 1.10 1.10 GFR Calculation 79 79 BUN/Creatinine Ratio 21.00 H 21.00 H Glucose 102 102 POC Glucose Calculated Osmolality 286.1 286.1 Calcium 8.2 L 8.1 L Magnesium 2.4 2.4 Total Bilirubin 1.00 Direct Bilirubin 0.10 Indirect Bilirubin 0.9 AST 17 ALT 14 L Alkaline Phosphatase 48 Total Creatine Kinase 146 D CK-MB (CK-2) < 1.0 Troponin I 0.737 H D Total Protein 5.6 L Albumin 2.6 L Globulin 3.0 Albumin/Globulin Ratio 0.8 L 03/28/17 08:01 WBC RBC Hgb Hct MCV MCH MCHC RDW Plt Count MPV Neut % (Auto) Lymph % (Auto) [place] % (Auto) Eos % (Auto) Baso % (Auto) Neut # (Auto) Lymph # (Auto) [place] # (Auto) Eos # (Auto) Baso # (Auto) Immature Gran % Nucleated RBC % Immature Gran # Nucleated RBCs # Sodium Potassium Chloride Carbon Dioxide Anion Gap BUN Creatinine GFR Calculation BUN/Creatinine Ratio Glucose POC Glucose 115 H Calculated Osmolality Calcium Magnesium Total Bilirubin Direct Bilirubin Indirect Bilirubin AST ALT Alkaline Phosphatase Total Creatine Kinase CK-MB (CK-2) Troponin I Total Protein Albumin Globulin Albumin/Globulin Ratio Quality Measures - VTE Contraindication to Pharmacological VTE Prophylaxis: High Risk of Bleeding Specialty Discharge - Follow Up or Referrals
[2017-03-28] MEDS: LISINOPRIL 2.5 MG TABLET PO SCH ×2 (09:16→21:30)
[2017-03-28] MEDS: FERROUS SULFATE 325 MG TABLET PO SCH (09:16)
[2017-03-28] MEDS: ASPIRIN EC 81 MG TABLET PO SCH (09:17)
[2017-03-28] MEDS: DOCUSATE SODIUM 100 MG CAPSULE PO SCH (09:17)
[2017-03-28] MEDS: CARVEDILOL 3.125 MG TABLET PO SCH ×2 (09:17→16:09)
[2017-03-28] MEDS: ATORVASTATIN 80 MG TABLET PO SCH (09:17)
[2017-03-28] MEDS: PANTOPRAZOLE 40 MG TABLET PO SCH (09:17)
[2017-03-28] MEDS: CHLORHEXIDINE 0.12% ORAL RINSE 60 ML BOTTLE SWISH/SPIT SCH ×2 (09:17→21:30)
--- NOTE | 2017-03-28 10:52 | Cardiology Progress Note ---
<Kaity Borrego - Last Filed: 03/28/17 10:44> Assessment and Plan (1) Status post aorto-coronary artery bypass graft Status: Acute Assessment and plan: See plan of care listed below. Current Visit: Yes (2) CAD (coronary artery disease) Status: Chronic Assessment and plan: See plan of care listed below. Current Visit: Yes (3) Acute non-ST segment elevation myocardial infarction Status: Resolved Assessment and plan: See plan of care listed below. Current Visit: Yes (4) Bruit of right carotid artery Status: Acute Assessment and plan: See plan of care listed below. Current Visit: Yes (5) Unspecified sleep apnea Status: Acute Assessment and plan: See plan of care listed below. Current Visit: Yes (6) Dyslipidemia Status: Chronic Assessment and plan: See plan of care listed below. Current Visit: Yes (7) Hypertension Status: Chronic Assessment and plan: See plan of care listed below. 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 Elliott from [facility] March 19, 2017 after moderate to severe left main coronary stenosis and severe stenosis of the circumflex marginal coronary artery. Patient underwent coronary artery bypass grafting March 23, 2017 with saphenous vein graft to LAD and SVG to circumflex marginal coronary artery. MARCH 28, 2017: Patient was seen and examined on the telemetry unit. He is postop day #5. Denies chest pain, heaviness or tightness. Reports that he is ambulating without difficulty. Vital signs are stable, labs are stable. Troponin decreased to 0.737 this morning. Telemetry is without dysrhythmia. He is recovering well. Medications been reviewed and is on appropriate medication regimen. Continue beta-blockade, NIDIA inhibitor, aspirin and lipid- lowering agent. Encouraged use of incentive spirometry and gradually increase activity as tolerated. Continue routine postoperative protocol. Will discuss with Dr. De La Cruz and await his additional recommendations. ASSESSMENT/PLAN: 1. CAD, STATUS POST CABG, SVG TO LAD AND CIRCUMFLEX - Patient underwent CABG March 23, 2017. He is recovering well. Medications been reviewed and is on appropriate medication regimen. Continue beta-blockade, NIDIA inhibitor, aspirin and lipid-lowering agent. Encouraged use of incentive spirometry and gradually increase activity as tolerated. Continue routine postoperative protocol. No new recommendations. Discuss with Dr. Plavac and await additional recommendations 2. HYPERTENSION - Well controlled. Will monitor blood pressure and adjust accordingly this hospitalization. 3. DYSLIPIDEMIA - LDL 105. Continue high intensity statin. 4. NSTEMI - Now status post CABG. Patient's troponin is decreasing, now 0.737. Continue beta-gene, NIDIA inhibitor, aspirin and lipid-lowering agent. 5. RIGHT CAROTID BRUIT - Carotid ultrasound revealed mild amount of plaque with less than 50% diameter stenosis bilaterally. 6. SLEEP APNEA - Dr. Watkins is following. Exam (Progress Note) - Constitutional Vitals: Period Temp Pulse Resp BP Sys/Ricci Pulse Ox Last 24 Hr 98.3 F-99.7 F 60-89 17-20 116-136/62-74 92-97 Exam: General: Appears well with no apparent distress. Pleasant and cooperative. Appears comfortable. HEENT: PERRL, normocephalic, atraumatic. Mucous membranes moist. No jaundice noted. Conjunctiva moist and clear, sclerae anicteric Neck: No JVD/HJR, no thyromegaly or lymphadenopathy noted. Cardiac: Regular rate and rhythm. No murmur rub or gallop. Lungs: Clear to auscultation without accessory muscle use to assist the respiratory pattern. Abdomen: Soft, bowel sounds normoactive. Nontender and nondistended. Extremities: No clubbing, cyanosis noted. Trace edema at vein harvest site. Upper extremity pulses 2+. Lower extremity pulses 2+. Capillary refill less than 3 seconds. Skin: No unusual lesions or rashes. No skin breakdown appreciated. Surgical incisions healing well without dehiscence or drainage. Neuro: Awake, alert and oriented 3. Moves all extremities well without hemiparesis or paralysis. No essential tremor is appreciated. Result/EKG - Labs CBC & BMP: 03/28/17 04:29 03/28/17 04:29 Lab Results: I have reviewed the past 24 hour labs Labs: Laboratory Results - last 24 hr 03/27/17 03/27/17 03/27/17 11:47 15:50 20:33 WBC RBC Hgb Hct MCV MCH MCHC RDW Plt Count MPV Neut % (Auto) Lymph % (Auto) [place] % (Auto) Eos % (Auto) Baso % (Auto) Neut # (Auto) Lymph # (Auto) [place] # (Auto) Eos # (Auto) Baso # (Auto) Immature Gran % Nucleated RBC % Immature Gran # Nucleated RBCs # Sodium Potassium Chloride Carbon Dioxide Anion Gap BUN Creatinine GFR Calculation BUN/Creatinine Ratio Glucose POC Glucose 117 H 127 H 103 Calculated Osmolality Calcium Magnesium Total Bilirubin Direct Bilirubin Indirect Bilirubin AST ALT Alkaline Phosphatase Total Creatine Kinase CK-MB (CK-2) Troponin I Total Protein Albumin Globulin Albumin/Globulin Ratio 03/28/17 03/28/17 03/28/17 04:29 04:29 04:29 WBC 9.8 RBC 3.82 Hgb 11.8 L Hct 34.7 L MCV 90.8 MCH 31 MCHC 34.0 RDW 13.2 Plt Count 279 D MPV 10.4 Neut % (Auto) 56.8 Lymph % (Auto) 31.9 [place] % (Auto) 7.0 Eos % (Auto) 3.3 Baso % (Auto) 0.3 Neut # (Auto) 5.5 Lymph # (Auto) 3.1 [place] # (Auto) 0.7 Eos # (Auto) 0.3 Baso # (Auto) 0.0 Immature Gran % 0.7 Nucleated RBC % 0.0 Immature Gran # 0.07 Nucleated RBCs # 0.00 Sodium 142 142 Potassium 4.1 4.0 Chloride 108 H 108 H Carbon Dioxide 25 25 Anion Gap 13.1 13.0 BUN 24 H 24 H Creatinine 1.10 1.10 GFR Calculation 79 79 BUN/Creatinine Ratio 21.00 H 21.00 H Glucose 102 102 POC Glucose Calculated Osmolality 286.1 286.1 Calcium 8.2 L 8.1 L Magnesium 2.4 2.4 Total Bilirubin 1.00 Direct Bilirubin 0.10 Indirect Bilirubin 0.9 AST 17 ALT 14 L Alkaline Phosphatase 48 Total Creatine Kinase 146 D CK-MB (CK-2) < 1.0 Troponin I 0.737 H D Total Protein 5.6 L Albumin 2.6 L Globulin 3.0 Albumin/Globulin Ratio 0.8 L 03/28/17 08:01 WBC RBC Hgb Hct MCV MCH MCHC RDW Plt Count MPV Neut % (Auto) Lymph % (Auto) [place] % (Auto) Eos % (Auto) Baso % (Auto) Neut # (Auto) Lymph # (Auto) [place] # (Auto) Eos # (Auto) Baso # (Auto) Immature Gran % Nucleated RBC % Immature Gran # Nucleated RBCs # Sodium Potassium Chloride Carbon Dioxide Anion Gap BUN Creatinine GFR Calculation BUN/Creatinine Ratio Glucose POC Glucose 115 H Calculated Osmolality Calcium Magnesium Total Bilirubin Direct Bilirubin Indirect Bilirubin AST ALT Alkaline Phosphatase Total Creatine Kinase CK-MB (CK-2) Troponin I Total Protein Albumin Globulin Albumin/Globulin Ratio Quality Measures - VTE Contraindication to Pharmacological VTE Prophylaxis: High Risk of Bleeding Specialty Discharge - Follow Up or Referrals <Chi De La Cruz - Last Filed: 03/28/17 10:58> Cardiology - PN: Subj Interval history: Cardiology addendum. Patient examined and chart reviewed. discussed with nurse Kaity Borrego RN. Postop day #5 with two-vessel CABG, vein graft to LAD and vein graft to circumflex. Status post non-Q SC following cath. Rhythm shows steady sinus in 80s O2 sat 95% Blood pressure 120/70 Decreased breath sounds fairly clear Regular rhythm no gallop Abdomen benign Lab data today White count 9.8 hemoglobin 11.8 Sodium 142 potassium 4.0 BUN 24 creatinine 1.10 magnesium 2.4 Plan Encourage spirometry Ambulate and monitor Exam (Progress Note) - Constitutional Vitals: Period Temp Pulse Resp BP Sys/Ricci Pulse Ox Last 24 Hr 98.3 F-99.7 F 60-89 17-20 116-136/62-74 92-97 Result/EKG - Labs CBC & BMP: 03/28/17 04:29 03/28/17 04:29 Labs: Laboratory Results - last 24 hr 03/27/17 03/27/17 03/27/17 11:47 15:50 20:33 WBC RBC Hgb Hct MCV MCH MCHC RDW Plt Count MPV Neut % (Auto) Lymph % (Auto) [place] % (Auto) Eos % (Auto) Baso % (Auto) Neut # (Auto) Lymph # (Auto) [place] # (Auto) Eos # (Auto) Baso # (Auto) Immature Gran % Nucleated RBC % Immature Gran # Nucleated RBCs # Sodium Potassium Chloride Carbon Dioxide Anion Gap BUN Creatinine GFR Calculation BUN/Creatinine Ratio Glucose POC Glucose 117 H 127 H 103 Calculated Osmolality Calcium Magnesium Total Bilirubin Direct Bilirubin Indirect Bilirubin AST ALT Alkaline Phosphatase Total Creatine Kinase CK-MB (CK-2) Troponin I Total Protein Albumin Globulin Albumin/Globulin Ratio 03/28/17 03/28/17 03/28/17 04:29 04:29 04:29 WBC 9.8 RBC 3.82 Hgb 11.8 L Hct 34.7 L MCV 90.8 MCH 31 MCHC 34.0 RDW 13.2 Plt Count 279 D MPV 10.4 Neut % (Auto) 56.8 Lymph % (Auto) 31.9 [place] % (Auto) 7.0 Eos % (Auto) 3.3 Baso % (Auto) 0.3 Neut # (Auto) 5.5 Lymph # (Auto) 3.1 [place] # (Auto) 0.7 Eos # (Auto) 0.3 Baso # (Auto) 0.0 Immature Gran % 0.7 Nucleated RBC % 0.0 Immature Gran # 0.07 Nucleated RBCs # 0.00 Sodium 142 142 Potassium 4.1 4.0 Chloride 108 H 108 H Carbon Dioxide 25 25 Anion Gap 13.1 13.0 BUN 24 H 24 H Creatinine 1.10 1.10 GFR Calculation 79 79 BUN/Creatinine Ratio 21.00 H 21.00 H Glucose 102 102 POC Glucose Calculated Osmolality 286.1 286.1 Calcium 8.2 L 8.1 L Magnesium 2.4 2.4 Total Bilirubin 1.00 Direct Bilirubin 0.10 Indirect Bilirubin 0.9 AST 17 ALT 14 L Alkaline Phosphatase 48 Total Creatine Kinase 146 D CK-MB (CK-2) < 1.0 Troponin I 0.737 H D Total Protein 5.6 L Albumin 2.6 L Globulin 3.0 Albumin/Globulin Ratio 0.8 L 03/28/17 08:01 WBC RBC Hgb Hct MCV MCH MCHC RDW Plt Count MPV Neut % (Auto) Lymph % (Auto) [place] % (Auto) Eos % (Auto) Baso % (Auto) Neut # (Auto) Lymph # (Auto) [place] # (Auto) Eos # (Auto) Baso # (Auto) Immature Gran % Nucleated RBC % Immature Gran # Nucleated RBCs # Sodium Potassium Chloride Carbon Dioxide Anion Gap BUN Creatinine GFR Calculation BUN/Creatinine Ratio Glucose POC Glucose 115 H Calculated Osmolality Calcium Magnesium Total Bilirubin Direct Bilirubin Indirect Bilirubin AST ALT Alkaline Phosphatase Total Creatine Kinase CK-MB (CK-2) Troponin I Total Protein Albumin Globulin Albumin/Globulin Ratio
--- NOTE | 2017-03-28 18:49 | Sleep Medicine Progress Note ---
Assessment and Plan (1) Unspecified sleep apnea Status: Acute Assessment and plan: Schedule outpatient follow-up in the sleep clinic Current Visit: Yes (2) Hypertension Status: Chronic Current Visit: Yes (3) Coronary artery disease Status: Chronic Current Visit: Yes Qualifiers: Coronary Disease-Associated Artery/Lesion type: [place] artery [place] vs. transplanted heart: [place] heart Associated angina: with stable angina Qualified Code(s): I25.118 - Atherosclerotic heart disease of [place] coronary artery with other forms of angina pectoris Sleep Medicine Subjective Interval history: Patient has been poorly compliant with CPAP since it was initiated. I am not optimistic that he will utilize it. I will recommend outpatient evaluation and follow-up in the sleep clinic. Exam (Progress Note) - Constitutional Vitals: Period Temp Pulse Resp BP Sys/Ricci Pulse Ox Last 24 Hr 97.8 F-99.5 F 72-89 17-20 105-136/64-75 92-95 Results - Labs CBC & BMP: 03/28/17 04:29 03/28/17 04:29 Specialty Discharge - Follow Up or Referrals
[2017-03-28] MEDS: ZALEPLON 5 MG CAPSULE PO PRN (21:30)
[2017-03-29 05:25] LABS: Basophils % 0.4 % (0.0-0.8); Eosinophils # 0.4 10*3/uL (0.0-0.87); Eosinophils % 4.1 % (0.00-10.9); Hematocrit 34.1 VOL% (42.0-52.0); Hemoglobin 11.5 GM/DL (14.0-18.0); Immature Granulocytes % 0.7 %; Immature Granulocytes Absolute 0.07 #; Lymphocytes # 3.4 10*3/uL (1.4-4.0); Lymphocytes % 33.8 % (21.2-54.2); Mean Corpuscular HGB Conc 33.7 GM/DL (32-36); Mean Corpuscular Hemoglobin 31 PG (27-34); Mean Corpuscular Volume 91.9 FL (87-102); Mean Platelet Volume 10.5 FL (9.6-12.0); Monocytes # 0.7 10*3/uL (0.11-0.8); Monocytes % 6.8 % (1.7-12.7); Neutrophils # 5.4 10*3/uL (1.4-7.4); Neutrophils % 54.2 % (38.7-73.9); Platelet Count 304 T/CUMM (130-400); Red Blood Count 3.71 MC/CUMM (3.8-5.5); Red Cell Distribution Width 13.2 % (9.3-17.3)
[2017-03-29 06:07] LABS: Alanine Aminotransferase 18 U/L (16-61); Albumin 2.5 G/DL (3.4-5.0); Alkaline Phosphatase 48 U/L (45-117); Aspartate Amino Transferase 24 U/L (0-37); Bilirubin,Direct < 0.10 MG/DL (0.0-0.20); Bilirubin,Indirect 0.3 MG/DL (0.0-1.0); Blood Urea Nitrogen 23 MG/DL (7-18); Calcium 7.9 MG/DL (8.5-10.1); Glucose 98 MG/DL (74-106); Magnesium 2.5 MG/DL (1.8-2.4); Potassium 4.3 MMOL/L (3.5-5.1); Sodium 143 MMOL/L (136-145); Total Protein 5.3 G/DL (6.4-8.3)
[2017-03-29 06:13] LABS: Troponin I Only 0.386 NG/ML (0.00-0.045)
--- NOTE | 2017-03-29 07:22 | EKG Report ---
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
--- NOTE | 2017-03-29 08:05 | Cardiology Progress Note ---
Cardiology - PN: Subj Interval history: Cardiology note Postop day #6 two-vessel CABG, vein graft to LAD and vein graft to circumflex. Status post non-Q-wave [place] following cath. Comfortable. Telemetry shows sinus rhythm in the 70s and 80s Blood pressure 130/76 Regular rhythm no murmur or gallop Incision looks good Decreased breath sounds but clear. Abdomen benign. Left leg harvest site looks good Plan Ambulate and monitor Encourage spirometry Home soon Exam (Progress Note) - Constitutional Vitals: Period Temp Pulse Resp BP Sys/Ricci Pulse Ox Last 24 Hr 97.2 F-99.4 F 71-86 18-20 105-135/64-75 92-100 Result/EKG - Labs CBC & BMP: 03/29/17 04:20 03/29/17 04:20 Labs: Laboratory Results - last 24 hr 03/28/17 03/28/17 03/28/17 08:01 11:40 15:49 WBC RBC Hgb Hct MCV MCH MCHC RDW Plt Count MPV Neut % (Auto) Lymph % (Auto) [place] % (Auto) Eos % (Auto) Baso % (Auto) Neut # (Auto) Lymph # (Auto) [place] # (Auto) Eos # (Auto) Baso # (Auto) Immature Gran % Nucleated RBC % Immature Gran # Nucleated RBCs # Sodium Potassium Chloride Carbon Dioxide Anion Gap BUN Creatinine GFR Calculation BUN/Creatinine Ratio Glucose POC Glucose 115 H 130 H 120 H Calculated Osmolality Calcium Magnesium Total Bilirubin Direct Bilirubin Indirect Bilirubin AST ALT Alkaline Phosphatase Total Creatine Kinase CK-MB (CK-2) Troponin I Total Protein Albumin Globulin Albumin/Globulin Ratio 03/28/17 03/29/17 03/29/17 19:30 04:20 04:20 WBC 10.0 RBC 3.71 L Hgb 11.5 L Hct 34.1 L MCV 91.9 MCH 31 MCHC 33.7 RDW 13.2 Plt Count 304 MPV 10.5 Neut % (Auto) 54.2 Lymph % (Auto) 33.8 [place] % (Auto) 6.8 Eos % (Auto) 4.1 Baso % (Auto) 0.4 Neut # (Auto) 5.4 Lymph # (Auto) 3.4 [place] # (Auto) 0.7 Eos # (Auto) 0.4 Baso # (Auto) 0.0 Immature Gran % 0.7 Nucleated RBC % 0.0 Immature Gran # 0.07 Nucleated RBCs # 0.00 Sodium 143 Potassium 4.3 Chloride 110 H Carbon Dioxide 25 Anion Gap 12.3 BUN 23 H Creatinine 1.00 GFR Calculation 88 BUN/Creatinine Ratio 23.00 H Glucose 98 POC Glucose 166 H Calculated Osmolality 288.0 Calcium 7.9 L Magnesium 2.5 H Total Bilirubin 0.40 Direct Bilirubin < 0.10 Indirect Bilirubin 0.3 AST 24 ALT 18 Alkaline Phosphatase 48 Total Creatine Kinase 131 CK-MB (CK-2) < 1.0 Troponin I 0.386 H D Total Protein 5.3 L Albumin 2.5 L Globulin 2.8 Albumin/Globulin Ratio 0.8 L 03/29/17 07:20 WBC RBC Hgb Hct MCV MCH MCHC RDW Plt Count MPV Neut % (Auto) Lymph % (Auto) [place] % (Auto) Eos % (Auto) Baso % (Auto) Neut # (Auto) Lymph # (Auto) [place] # (Auto) Eos # (Auto) Baso # (Auto) Immature Gran % Nucleated RBC % Immature Gran # Nucleated RBCs # Sodium Potassium Chloride Carbon Dioxide Anion Gap BUN Creatinine GFR Calculation BUN/Creatinine Ratio Glucose POC Glucose 116 H Calculated Osmolality Calcium Magnesium Total Bilirubin Direct Bilirubin Indirect Bilirubin AST ALT Alkaline Phosphatase Total Creatine Kinase CK-MB (CK-2) Troponin I Total Protein Albumin Globulin Albumin/Globulin Ratio Quality Measures - VTE Contraindication to Pharmacological VTE Prophylaxis: High Risk of Bleeding Specialty Discharge - Follow Up or Referrals
--- NOTE | 2017-03-29 08:31 | XRay Report ---
Exam: XR chest 2V Indication: Shortness of breath Comparison study: 03/28/2017 radiograph Findings: The heart, mediastinum and bony structures are stable from prior. Right IJ central venous catheter in stable position. Median sternotomy wiring is again noted. Minimal diffuse interstitial opacities primarily in the perihilar regions and lung bases appears essentially unchanged likely representing underlying atelectasis/scarring. There is no focal consolidation, pneumothorax or pleural effusion identified. Impression: No acute cardiopulmonary process. No significant change from prior with similar suggestion of underlying chronic interstitial scarring changes. PROCEDURE INTERPRETED AT [facility] DEPARTMENT OF RADIOLOGY Final Report Signed by: Robert Garay
[2017-03-29] MEDS: FERROUS SULFATE 325 MG TABLET PO SCH (08:49)
[2017-03-29] MEDS: ATORVASTATIN 80 MG TABLET PO SCH (08:49)
[2017-03-29] MEDS: DOCUSATE SODIUM 100 MG CAPSULE PO SCH (08:50)
[2017-03-29] MEDS: ASPIRIN EC 81 MG TABLET PO SCH (08:50)
[2017-03-29] MEDS: PANTOPRAZOLE 40 MG TABLET PO SCH (08:50)
[2017-03-29] MEDS: CARVEDILOL 3.125 MG TABLET PO SCH ×2 (08:50→16:26)
[2017-03-29] MEDS: CHLORHEXIDINE 0.12% ORAL RINSE 60 ML BOTTLE SWISH/SPIT SCH ×2 (08:50→20:35)
[2017-03-29] MEDS: LISINOPRIL 2.5 MG TABLET PO SCH ×2 (08:50→20:34)
--- NOTE | 2017-03-29 08:54 | Cardiothoracic Progress Note ---
Cardiothoracic Subjective Interval history: Patient looks and feels better. Vital signs are stable and he is breathing comfortably. We will increase his activity as tolerated. Overall his progress seems satisfactory. Exam (Progress Note) - Constitutional Vitals: Period Temp Pulse Resp BP Sys/Ricci Pulse Ox Last 24 Hr 97.2 F-99.4 F 71-86 18-20 105-135/64-75 92-100 Result/EKG - Labs CBC & BMP: 03/29/17 04:20 03/29/17 04:20 Labs: Laboratory Results - last 24 hr 03/28/17 03/28/17 03/28/17 11:40 15:49 19:30 WBC RBC Hgb Hct MCV MCH MCHC RDW Plt Count MPV Neut % (Auto) Lymph % (Auto) [place] % (Auto) Eos % (Auto) Baso % (Auto) Neut # (Auto) Lymph # (Auto) [place] # (Auto) Eos # (Auto) Baso # (Auto) Immature Gran % Nucleated RBC % Immature Gran # Nucleated RBCs # Sodium Potassium Chloride Carbon Dioxide Anion Gap BUN Creatinine GFR Calculation BUN/Creatinine Ratio Glucose POC Glucose 130 H 120 H 166 H Calculated Osmolality Calcium Magnesium Total Bilirubin Direct Bilirubin Indirect Bilirubin AST ALT Alkaline Phosphatase Total Creatine Kinase CK-MB (CK-2) Troponin I Total Protein Albumin Globulin Albumin/Globulin Ratio 03/29/17 03/29/17 03/29/17 04:20 04:20 07:20 WBC 10.0 RBC 3.71 L Hgb 11.5 L Hct 34.1 L MCV 91.9 MCH 31 MCHC 33.7 RDW 13.2 Plt Count 304 MPV 10.5 Neut % (Auto) 54.2 Lymph % (Auto) 33.8 [place] % (Auto) 6.8 Eos % (Auto) 4.1 Baso % (Auto) 0.4 Neut # (Auto) 5.4 Lymph # (Auto) 3.4 [place] # (Auto) 0.7 Eos # (Auto) 0.4 Baso # (Auto) 0.0 Immature Gran % 0.7 Nucleated RBC % 0.0 Immature Gran # 0.07 Nucleated RBCs # 0.00 Sodium 143 Potassium 4.3 Chloride 110 H Carbon Dioxide 25 Anion Gap 12.3 BUN 23 H Creatinine 1.00 GFR Calculation 88 BUN/Creatinine Ratio 23.00 H Glucose 98 POC Glucose 116 H Calculated Osmolality 288.0 Calcium 7.9 L Magnesium 2.5 H Total Bilirubin 0.40 Direct Bilirubin < 0.10 Indirect Bilirubin 0.3 AST 24 ALT 18 Alkaline Phosphatase 48 Total Creatine Kinase 131 CK-MB (CK-2) < 1.0 Troponin I 0.386 H D Total Protein 5.3 L Albumin 2.5 L Globulin 2.8 Albumin/Globulin Ratio 0.8 L Quality Measures - VTE Contraindication to Pharmacological VTE Prophylaxis: High Risk of Bleeding Specialty Discharge - Follow Up or Referrals
[2017-03-29] MEDS: ZALEPLON 5 MG CAPSULE PO PRN (20:34)
[2017-03-30 05:27] LABS: Basophils # 0.1 10*3/uL (0.0-0.2); Basophils % 0.5 % (0.0-0.8); Eosinophils # 0.4 10*3/uL (0.0-0.87); Eosinophils % 3.7 % (0.00-10.9); Hematocrit 34.2 VOL% (42.0-52.0); Hemoglobin 11.6 GM/DL (14.0-18.0); Immature Granulocytes % 0.8 %; Immature Granulocytes Absolute 0.08 #; Lymphocytes # 2.8 10*3/uL (1.4-4.0); Lymphocytes % 28.1 % (21.2-54.2); Mean Corpuscular HGB Conc 33.9 GM/DL (32-36); Mean Corpuscular Hemoglobin 31 PG (27-34); Mean Corpuscular Volume 91.4 FL (87-102); Mean Platelet Volume 10.4 FL (9.6-12.0); Monocytes # 0.6 10*3/uL (0.11-0.8); Monocytes % 6.1 % (1.7-12.7); Neutrophils # 6.1 10*3/uL (1.4-7.4); Neutrophils % 60.8 % (38.7-73.9); Platelet Count 331 T/CUMM (130-400); Red Blood Count 3.74 MC/CUMM (3.8-5.5); Red Cell Distribution Width 13.1 % (9.3-17.3); White Blood Count 10.1 T/CUMM (4-12)
[2017-03-30 06:07] LABS: Calcium 8.1 MG/DL (8.5-10.1); Magnesium 2.4 MG/DL (1.8-2.4); Osmolality,Calculated 282.3 MOS/KG (273-304); Potassium 4.2 MMOL/L (3.5-5.1)
--- NOTE | 2017-03-30 08:29 | Cardiology Progress Note ---
Cardiology - PN: Subj Interval history: Cardiology note Postop day #7 two-vessel CABG, vein graft to LAD and vein graft to circumflex. Status post non-Q-wave [place] following cath. Incision a little sore, but overall doing well Appetite good. Telemetry shows steady sinus rhythm Blood pressure 124/80 regular rhythm No murmur or gallop Incision looks good no step-off Decreased breath sounds but clear Left leg harvest site looks good. Lab data today white count 10.1 hemoglobin 11.6 hematocrit 34.2 Sodium 141 potassium 4.2 chloride 108 CO2 25 BUN 19 creatinine 0.90 Magnesium 2.4 glucose 124 Plan Ambulate and monitor Home soon Exam (Progress Note) - Constitutional Vitals: Period Temp Pulse Resp BP Sys/Ricci Pulse Ox Last 24 Hr 97.6 F-98.4 F 76-89 16-20 111-140/49-79 96-99 Result/EKG - Labs CBC & BMP: 03/30/17 04:32 03/30/17 04:32 Labs: Laboratory Results - last 24 hr 03/29/17 03/29/17 03/29/17 11:21 15:35 19:48 WBC RBC Hgb Hct MCV MCH MCHC RDW Plt Count MPV Neut % (Auto) Lymph % (Auto) [place] % (Auto) Eos % (Auto) Baso % (Auto) Neut # (Auto) Lymph # (Auto) [place] # (Auto) Eos # (Auto) Baso # (Auto) Immature Gran % Nucleated RBC % Immature Gran # Nucleated RBCs # Sodium Potassium Chloride Carbon Dioxide Anion Gap BUN Creatinine GFR Calculation BUN/Creatinine Ratio Glucose POC Glucose 162 H 111 H 119 H Calculated Osmolality Calcium Magnesium 03/30/17 03/30/17 03/30/17 04:32 04:32 07:56 WBC 10.1 RBC 3.74 L Hgb 11.6 L Hct 34.2 L MCV 91.4 MCH 31 MCHC 33.9 RDW 13.1 Plt Count 331 MPV 10.4 Neut % (Auto) 60.8 Lymph % (Auto) 28.1 [place] % (Auto) 6.1 Eos % (Auto) 3.7 Baso % (Auto) 0.5 Neut # (Auto) 6.1 Lymph # (Auto) 2.8 [place] # (Auto) 0.6 Eos # (Auto) 0.4 Baso # (Auto) 0.1 Immature Gran % 0.8 Nucleated RBC % 0.0 Immature Gran # 0.08 Nucleated RBCs # 0.00 Sodium 141 Potassium 4.2 Chloride 108 H Carbon Dioxide 25 Anion Gap 12.2 BUN 19 H Creatinine 0.90 GFR Calculation 99 BUN/Creatinine Ratio 21.00 H Glucose 100 POC Glucose 124 H Calculated Osmolality 282.3 Calcium 8.1 L Magnesium 2.4 Quality Measures - VTE Contraindication to Pharmacological VTE Prophylaxis: High Risk of Bleeding Specialty Discharge - Follow Up or Referrals
[2017-03-30] MEDS: FERROUS SULFATE 325 MG TABLET PO SCH (09:09)
[2017-03-30] MEDS: LISINOPRIL 2.5 MG TABLET PO SCH (09:09)
[2017-03-30] MEDS: PANTOPRAZOLE 40 MG TABLET PO SCH (09:09)
[2017-03-30] MEDS: DOCUSATE SODIUM 100 MG CAPSULE PO SCH (09:09)
[2017-03-30] MEDS: CHLORHEXIDINE 0.12% ORAL RINSE 60 ML BOTTLE SWISH/SPIT SCH (09:10)
[2017-03-30] MEDS: ASPIRIN EC 81 MG TABLET PO SCH (09:10)
[2017-03-30] MEDS: CARVEDILOL 3.125 MG TABLET PO SCH (09:10)
[2017-03-30] MEDS: oxyCODONE/ACETAMINOPHEN 5-325 MG TABLET PO PRN (09:10)
[2017-03-30] MEDS: ATORVASTATIN 80 MG TABLET PO SCH (09:10)
--- NOTE | 2017-03-30 09:13 | Discharge Summary ---
Specialty Discharge - Follow Up or Referrals Discharge Plan - Discharge Medications No Action Aspirin [Ecotrin] 81 mg PO DAILY Lisinopril/Hydrochlorothiazide [Lisinopril-Hctz 20-25 mg Tab] 1 each PO DAILY - Follow Up or Referral - Forms/Instructions Instructions: Myocardial Infarction (GEN), Coronary Artery Bypass Graft (DC), Heart Healthy Diet (GEN), Sternal Precautions, Emr Specialist (GEN) Exam - Constitutional Vitals: Period Temp Pulse Resp BP Sys/Ricci Pulse Ox Last 24 Hr 97.6 F-98.4 F 76-89 16-20 111-140/49-79 96-99 Discharge Results Procedures and tests throughout hospitalization: Pending Orders 03/22/17 04:42 FFP [Fresh Frozen Plasma] Routine RBCLR [Red Blood Cells Leuko Red] Routine SDPLT [Single Donor Platelets] Routine Type and Screen Routine 03/31/17 04:00 BMP w/ Mg [Basic Metabolic Panel w/Mg] IN AM CBC [Comp Blood Count Auto Diff] IN AM 04/01/17 04:00 BMP w/ Mg [Basic Metabolic Panel w/Mg] IN AM CBC [Comp Blood Count Auto Diff] IN AM Labs on day of discharge: Labs from last 24 hours 03/30/17 03/30/17 03/30/17 07:56 04:32 04:32 WBC 10.1 RBC 3.74 L Hgb 11.6 L Hct 34.2 L MCV 91.4 MCH 31 MCHC 33.9 RDW 13.1 Plt Count 331 MPV 10.4 Neut % (Auto) 60.8 Lymph % (Auto) 28.1 [place] % (Auto) 6.1 Eos % (Auto) 3.7 Baso % (Auto) 0.5 Neut # (Auto) 6.1 Lymph # (Auto) 2.8 [place] # (Auto) 0.6 Eos # (Auto) 0.4 Baso # (Auto) 0.1 Immature Gran % 0.8 Nucleated RBC % 0.0 Immature Gran # 0.08 Nucleated RBCs # 0.00 Sodium 141 Potassium 4.2 Chloride 108 H Carbon Dioxide 25 Anion Gap 12.2 BUN 19 H Creatinine 0.90 GFR Calculation 99 BUN/Creatinine Ratio 21.00 H Glucose 100 POC Glucose 124 H Calculated Osmolality 282.3 Calcium 8.1 L Magnesium 2.4 03/29/17 03/29/17 03/29/17 19:48 15:35 11:21 WBC RBC Hgb Hct MCV MCH MCHC RDW Plt Count MPV Neut % (Auto) Lymph % (Auto) [place] % (Auto) Eos % (Auto) Baso % (Auto) Neut # (Auto) Lymph # (Auto) [place] # (Auto) Eos # (Auto) Baso # (Auto) Immature Gran % Nucleated RBC % Immature Gran # Nucleated RBCs # Sodium Potassium Chloride Carbon Dioxide Anion Gap BUN Creatinine GFR Calculation BUN/Creatinine Ratio Glucose POC Glucose 119 H 111 H 162 H Calculated Osmolality Calcium Magnesium DS: Provider Date of admission: 03/19/17 08:55 Primary care physician: . No PCP Attending physician on admission: Don Elliott MD Consults: 03/19/17 09:19 Consult to Dietitian [CONS] Routine Reason for Dietitian: Other Consult Comment: low salt, low cholesterol, diet 03/24/17 10:15 Consult to Cardiac Rehabilitation [CONS] Routine Reason for Cardiac Rehabilitation: Other Consult Comment: Post CABG/heart surgery Consult to Diabetes Center, Educator [CONS] Routine Reason for Cardiac Rehabilitation Specialist: Diabetes Education Initial Insulin Education Consult Comment: insulin education Consult to Dietitian [CONS] Routine Reason for Dietitian: Dietary Consult Consult Comment: Cardiac, low salt, low cholesterol diet Consult to Physical Therapy [CONS] Routine Reason for Physical Therapy: Other Consult Comment: CV Rehab Discharging clinician: Don Elliott MD Expected date of discharge: 03/30/17
--- NOTE | 2017-03-30 09:16 | Discharge Summary ---
Hospital Course - Hospital Course Hospital Course: Patient is a 71-year-old man who was admitted to [facility] for evaluation of exertional chest discomfort. 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 He was referred for bypass surgery. While waiting for transfer he experienced chest discomfort which continued overnight until the morning of his transfer. Upon arrival here cardiac enzymes did reveal a moderate degree of myocardial injury. Accordingly we waited for 5 days following that before proceeding with surgery. At the time of surgery left ventricular function looked to be essentially normal. No evidence of transmural infarction was demonstrated. Grafts were placed to the circumflex marginal and anterior descending coronary artery without incident. Postoperative course was essentially uncomplicated. Patient is to be discharged home with instructions to return for follow-up in 1 month. His discharge medications are listed below. Specialty Discharge - Follow Up or Referrals Follow up with: Don Elliott MD [Physician] - 1 Month Discharge Plan - Discharge Data Condition at Discharge: Stable Discharge Diet: advance to your usual diet Activity: resume usual activities as tolerated Hygiene: no restrictions Weight Bearing at Discharge: full weight bearing Driving: not until seen by doctor - Discharge Medications New Atorvastatin [Lipitor] 80 mg PO DAILY #30 tablet oxyCODONE/ACETAMINOPHEN 5-325 [Percocet 5-325] 1 tablet PO Q4H PRN tablet PRN Reason: Pain Mild (1-3) Continue Aspirin [Ecotrin] 81 mg PO DAILY Lisinopril/Hydrochlorothiazide [Lisinopril-Hctz 20-25 mg Tab] 1 each PO DAILY - Follow Up or Referral - Forms/Instructions Instructions: Myocardial Infarction (GEN), Coronary Artery Bypass Graft (DC), Heart Healthy Diet (GEN), Sternal Precautions, Energy Professional (GEN) Exam - Constitutional Vitals: Period Temp Pulse Resp BP Sys/Ricci Pulse Ox Last 24 Hr 97.6 F-98.4 F 76-89 16-20 111-140/49-79 96-99 Discharge Results Procedures and tests throughout hospitalization: Pending Orders 03/22/17 04:42 FFP [Fresh Frozen Plasma] Routine RBCLR [Red Blood Cells Leuko Red] Routine SDPLT [Single Donor Platelets] Routine Type and Screen Routine 03/31/17 04:00 BMP w/ Mg [Basic Metabolic Panel w/Mg] IN AM CBC [Comp Blood Count Auto Diff] IN AM 04/01/17 04:00 BMP w/ Mg [Basic Metabolic Panel w/Mg] IN AM CBC [Comp Blood Count Auto Diff] IN AM Labs on day of discharge: Labs from last 24 hours 03/30/17 03/30/17 03/30/17 07:56 04:32 04:32 WBC 10.1 RBC 3.74 L Hgb 11.6 L Hct 34.2 L MCV 91.4 MCH 31 MCHC 33.9 RDW 13.1 Plt Count 331 MPV 10.4 Neut % (Auto) 60.8 Lymph % (Auto) 28.1 [place] % (Auto) 6.1 Eos % (Auto) 3.7 Baso % (Auto) 0.5 Neut # (Auto) 6.1 Lymph # (Auto) 2.8 [place] # (Auto) 0.6 Eos # (Auto) 0.4 Baso # (Auto) 0.1 Immature Gran % 0.8 Nucleated RBC % 0.0 Immature Gran # 0.08 Nucleated RBCs # 0.00 Sodium 141 Potassium 4.2 Chloride 108 H Carbon Dioxide 25 Anion Gap 12.2 BUN 19 H Creatinine 0.90 GFR Calculation 99 BUN/Creatinine Ratio 21.00 H Glucose 100 POC Glucose 124 H Calculated Osmolality 282.3 Calcium 8.1 L Magnesium 2.4 03/29/17 03/29/17 03/29/17 19:48 15:35 11:21 WBC RBC Hgb Hct MCV MCH MCHC RDW Plt Count MPV Neut % (Auto) Lymph % (Auto) [place] % (Auto) Eos % (Auto) Baso % (Auto) Neut # (Auto) Lymph # (Auto) [place] # (Auto) Eos # (Auto) Baso # (Auto) Immature Gran % Nucleated RBC % Immature Gran # Nucleated RBCs # Sodium Potassium Chloride Carbon Dioxide Anion Gap BUN Creatinine GFR Calculation BUN/Creatinine Ratio Glucose POC Glucose 119 H 111 H 162 H Calculated Osmolality Calcium Magnesium DS: Provider Date of admission: 03/19/17 08:55 Primary care physician: . No PCP Attending physician on admission: Don Elliott MD Consults: 03/19/17 09:19 Consult to Dietitian [CONS] Routine Reason for Dietitian: Other Consult Comment: low salt, low cholesterol, diet 03/24/17 10:15 Consult to Cardiac Rehabilitation [CONS] Routine Reason for Cardiac Rehabilitation: Other Consult Comment: Post CABG/heart surgery Consult to Diabetes Center, Educator [CONS] Routine Reason for Private Branch Exchange Service Adviser: Diabetes Education Initial Insulin Education Consult Comment: insulin education Consult to Dietitian [CONS] Routine Reason for Dietitian: Dietary Consult Consult Comment: Cardiac, low salt, low cholesterol diet Consult to Physical Therapy [CONS] Routine Reason for Physical Therapy: Other Consult Comment: CV Rehab Discharging clinician: Don Elliott MD Expected date of discharge: 03/30/17
--- NOTE | 2017-03-30 11:17 | Event Note ---
In addition to previous discharge medications listed on Dr. Elliott's discharge summary, patient was given a written prescription for Coreg 3.125 p.o. twice daily prior to discharge as he is status post non-ST elevation NM. Patient will follow up with [facility] in 2 weeks with EKG, BMP and CBC.
[2017-03-30 11:26] VITALS: BP 109/57
== END 2017-03-30 13:04 | disposition home health service (06) | DRG 236 ==
LOC: N.ICU 10:23 → N.TELEN 03-21 07:59 → N.CVR 03-23 07:07 → N.TELES 03-24 09:45